=== PATIENT | male | born 1945 | race Caucasian/White ===

== ENCOUNTER 2020-02-01 21:13 | Emergency (ER) | payer MEDICARE, SELFPAY ==
[2020-02-01 21:24] VITALS: BP 151/103; PULSE 123; RESP 22; TEMP 36.7; O2SAT 95; BMI 34.1
--- NOTE | 2020-02-01 21:29 | ED.MALEGU ---
HPI - Male Genitourinary General Chief complaint: Urogenital-Male Stated complaint: difficulty urination Time Seen by Provider: 02/01/20 21:24 History of Present Illness HPI Narrative: This is a 74-year-old male with known BPH and acutely developed inability to urinate at approximately 7:00 p.m. this evening and at the time was bladder scanned for a little over 400 cc of urine but continued to have difficulty with passing urine that has not been associated with any fevers, chills, nausea, vomiting, diarrhea, abdominal pain. Related Data Allergies Allergy/AdvReac Type Severity Reaction Status Date / Time amitriptyline [AMITRIPTYLINE] Allergy Unknown UNKNOWN Unverified 01/15/20 16:10 egg [EGGS] Allergy Unknown UNKNOWN Unverified 01/15/20 16:10 influenza virus vaccine, Allergy Unknown UNKNOWN Unverified 01/15/20 16:10 specific [FLU VACCINE] loratadine [From CLARITIN] Allergy Unknown UNKNOWN Unverified 01/15/20 16:10 mometasone furoate Allergy Unknown UNKNOWN Unverified 01/15/20 16:10 [From ASMANEX TWISTHALER] perphenazine [PERPHENAZINE] Allergy Unknown UNKNOWN Unverified 01/15/20 16:10 Influenza Virus Vaccine Live Allergy Unknown Uncoded 05/08/19 00:00 Review of Systems Review of Systems: Pertinent positives and negatives as stated in HPI 10 point review of systems otherwise negative. [facility] Past Medical History Source: nursing notes reviewed Medical History Anemia Anxiety Asthma Bronchitis COPD (chronic obstructive pulmonary disease) Depression GERD (gastroesophageal reflux disease) Hypertension Nutritional deficiency TBI (traumatic brain injury) Tinnitus Vertigo Social History Social History Alcohol intake: never Smoking Status: Never smoker Smoked in Last 30 Days: No Use of substances other than those prescribed or required for medical reasons: No Any prior treatment program specific to substance use: No Advance Directives: No Advance Directives Information Provided: Yes Physical Exam Vital Signs and I&O and Narrative: Vital Signs and I&O: Vital Signs Temp 98.1 F 02/01/20 21:24 Pulse 123 H 02/01/20 21:24 Resp 22 H 02/01/20 21:24 BP 151/103 H 02/01/20 21:24 Pulse Ox 95 02/01/20 21:24 Intake & Output 02/01/20 02/01/20 02/02/20 06:59 18:59 06:59 Weight 96 kg Body Mass Index 34.1 VITAL SIGNS: Reviewed. GENERAL: Well developed, well nourished, in no acute distress. HEAD: Normocephalic/atraumatic, EYES: PERRLA, EOMI intact without pain, no nystagmus/pallor/icterus noted EARS: Ext canals without abnormality, TMs non-bulging and non-erythematous NOSE: Nares patent bilateral OROPHARYNX: no oral lesions noted, posterior pharynx clear and non-erythematous without noted tonsillar enlargement/erythema/exudates NECK: Supple, no adenopathy LUNGS: Normal breath sounds. No adventitious sounds or accessory muscle use. SpO2<> CARDIOVASCULAR: Regular rate and rhythm without noted murmurs, no JVD or lower extremity edema. ABDOMEN: Soft, non-tender, non-distended with bowel sounds. No rigidity. No guarding. No palpable masses or hernias noted MUSCULOSKELETAL: No tenderness, deformities, or effusions noted on gross inspection. EXTREMITIES: No cyanosis, clubbing or edema. SKIN: Inspection of the skin reveals no rashes, ulcerations, jaundice, pallor, or petechiae. NEUROLOGIC: Baseline dementia. Strength and sensation to light touch were grossly intact Course Course Hospital Course: This is a 74-year-old male with acute urinary retention with passage of small amounts of gross hematuria. Bladder scan was significant for over 700 cc of urine and nursing staff attempted to pass both a coude catheter which was unsuccessful and then a 3 way catheter for CBI which was also unsuccessful. 2235: Attempted passage of 20Fr Coude catheter without success. 2245: Spoke with Dr Iniguez, Urology, who will come in and place the catheter. 2345: Dr Iniguez present to place catheter. Please see consult note for placement. Dr Iniguez recommends follow up in 1 week. review of all lab work is negative for any acute findings except an elevated BUN which is consistent with current urinary retention. MDM - Male Genitourinary Lab Data Result diagrams: 02/01/20 21:37 02/01/20 21:38 Labs: Lab Results 02/01/20 02/01/20 02/01/20 Range/Units 21:37 21:37 21:38 WBC 9.7 (4.8-10.8) X10*3/uL RBC 5.02 (4.60-5.80) X10*6/uL Hgb 15.3 (14.0-18.0) g/dl Hct 45.1 (42-52) % MCV 89.8 (80-98) fL MCH 30.5 (27.0-33.0) pg MCHC 33.9 (31.0-36.0) g/dl RDW 12.6 (11.0-16.0) % Plt Count 377 (160-400) X10*3/uL MPV 10.4 (9.4-12.4) fL Immature Gran % (Auto) 0.3 (0.0-0.4) % Neut % (Auto) 69.5 (45-73) % Lymph % (Auto) 18.2 L (20-40) % [place] % (Auto) 8.1 (2-11) % Eos % (Auto) 3.6 (0-4) % Baso % (Auto) 0.3 (0-2) % Neut # (Auto) 6.7 (2.0-8.3) X10*3/uL Lymph # (Auto) 1.8 (1.2-4.9) X10*3/uL [place] # (Auto) 0.8 (0.1-1.2) X10*3/uL Eos # (Auto) 0.4 (0.0-0.4) X10*3/uL Baso # (Auto) 0.0 (0.0-0.2) X10*3/uL Abs Immat Gran (auto) 0.03 (0.00-0.03) X10*3/uL Absolute Nucleated RBC 0.000 (0.0-0.012) X10*3/uL Nucleated RBC % (auto) 0.0 (0.0-0.2) /100WBC PT 11.9 (10.8-13.0) SEC INR 1.0 (0.9-1.1) Sodium 138 (135-145) mmol/L Potassium 3.5 (3.3-5.1) mmol/l Chloride 101 (96-108) mmol/L Carbon Dioxide 26 (22-29) mmol/L Anion Gap 15 (12-20) BUN 20 H (9-16) mg/dL Creatinine 1.02 (0.5-1.4) mg/dL Estim Creat Clear Calc 71.0 Estimated GFR > 60 Random Glucose 132 H (60-115) mg/dL Calcium 9.3 (8.4-10.2) mg/dL Total Bilirubin 0.5 (0.0-1.0) mg/dL AST 18 (5-37) U/L ALT 30 (0-40) U/L Alkaline Phosphatase 86 (39-117) U/L Total Protein 7.3 (6.5-8.0) g/dL Albumin 4.2 (3.5-5.0) g/dL Discharge Plan Discharge Clinical Impression: Urinary retention with incomplete bladder emptying Patient Disposition: [facility] ([place] Instructions: Espinoza Catheter Placement and Care (ED) Additional Instructions: 1. Resume all home medications as prescribed. 2. Increase hydration, especially water 3. Espinoza catheter should be left in place until evaluated by Urology. The patient and/or family acknowledge understanding of results (as applicable), diagnosis, treatment plan, need for follow up, and symptoms that should prompt a return to the emergency room. Referrals: Sai Iniguez MD [Physician] - 1 week ( for follow-up evaluation of urinary retention.)
[2020-02-01 21:49] LABS: MANUAL DIFF FLAG NO
[2020-02-01 21:52] LABS: Basophils Percent Auto 0.3 % (0-2); Eosinophils Absolute Auto 0.4 X10*3/uL (0.0-0.4); Eosinophils Percent Auto 3.6 % (0-4); Hematocrit 45.1 % (42-52); Hemoglobin 15.3 g/dl (14.0-18.0); Imm Gran Abs Auto 0.03 X10*3/uL (0.00-0.03); Imm Gran Pct Auto 0.3 % (0.0-0.4); Lymphocytes Absolute Auto 1.8 X10*3/uL (1.2-4.9); Lymphocytes Percent Auto 18.2 % (20-40); Mean Corpuscular HGB Conc 33.9 g/dl (31.0-36.0); Mean Corpuscular Hemoglobin 30.5 pg (27.0-33.0); Mean Corpuscular Volume 89.8 fL (80-98); Mean Platelet Volume 10.4 fL (9.4-12.4); Monocytes Absolute Auto 0.8 X10*3/uL (0.1-1.2); Monocytes Percent Auto 8.1 % (2-11); Neutrophils Absolute Auto 6.7 X10*3/uL (2.0-8.3); Neutrophils Percent Auto 69.5 % (45-73); Platelet Count 377 X10*3/uL (160-400); Red Blood Count 5.02 X10*6/uL (4.60-5.80); Red Cell Distribution Width 12.6 % (11.0-16.0); White Blood Count 9.7 X10*3/uL (4.8-10.8)
[2020-02-01 21:57] LABS: Prothrombin Time 11.9 SEC (10.8-13.0)
[2020-02-01 22:26] LABS: Alanine Aminotransferase 30 U/L (0-40); Albumin Level 4.2 g/dL (3.5-5.0); Alkaline Phosphatase 86 U/L (39-117); Anion Gap 15 (12-20); Aspartate Amino Transferase 18 U/L (5-37); Bilirubin Total 0.5 mg/dL (0.0-1.0); Blood Urea Nitrogen 20 mg/dL (9-16); Calcium 9.3 mg/dL (8.4-10.2); Carbon Dioxide 26 mmol/L (22-29); Chloride 101 mmol/L (96-108); Estimated Glomerular Filt Rate > 60; Glucose Random 132 mg/dL (60-115); Potassium 3.5 mmol/l (3.3-5.1); Sodium 138 mmol/L (135-145); Total Protein 7.3 g/dL (6.5-8.0)
--- NOTE | 2020-02-01 22:43 | PC.NURSE ---
Multiple cath attempts made by RN and provider with both 3 way catheter and coude. Unsucessful. Plan to contact urology. Patient remains in discomfort from pressure in bladder.
[2020-02-02] VITALS: BP 108/76; PULSE 114; RESP 20; TEMP 36.8; O2SAT 92
--- NOTE | 2020-02-02 00:14 | PM.UROPN ---
Subjective Subjective Patient reports: pain is less Interval history: Seen in ER Retention 800cc by scan difficult murguia placement in ER - had bladder neck false passage and trilobar crowding Physical Exam Vital Signs and I&O and Narrative: Vital Signs and I&O: Vital Signs Temp 98.1 F 02/01/20 21:24 Pulse 123 H 02/01/20 21:24 Resp 22 H 02/01/20 21:24 BP 151/103 H 02/01/20 21:24 Pulse Ox 95 02/01/20 21:24 Intake & Output 02/01/20 02/01/20 02/02/20 06:59 18:59 06:59 Weight 211 lb 10.3 oz Body Mass Index 34.1 Const: General: cooperative, healthy appearing, comfortable and no acute distress Nutritional Appearance: average body habitus Orientation/consciousness: oriented to person, oriented to place and oriented to time Eyes: General: appearance normal, both eyes and all related structures Chest: Chest palpation & inspection: normal inspection of the chest Resp: Effort & Inspection: normal respiratory effort Cardio: Rate: regular rate GI: Inspection: Yes normal to inspection Skin: Hair: normal Neuro: General: oriented to person, oriented to place and oriented to time Extrem: General: Yes normal to inspection Progress Note: A&P Assessment and plan (1) Urinary retention with incomplete bladder emptying: Status: Acute Assessment and Plan: flomax/finasteride f/u in 1 week in office Time Spent With Patient Time: Total time spent is greater than 50% in coordination of care (as documented) at patient's floor/unit and/or counseling patient: Time with patient: 25 - 35 minutes
[2020-02-02] MEDS: Lidocaine HCl 2 % Urojet 10 ML JEL.PF.APP TOPICAL ×2 (00:26→00:27)
[2020-02-02 02:04] LABS: Appearance Urine CLOUDY; Color Urine BROWN; Glucose Urine UA NEG (NEG); Leukocyte Esterase Urine NEG (NEG); Nitrite Urine POS (NEG); Specific Gravity - Urine >= 1.030 (1.005-1.025); Urine Blood 3+ (NEG); Urine Ketones 5 MG/DL (NEG); Urine Protein 2+ MG/DL (NEG-TRACE)
[2020-02-02 02:11] LABS: RBC Urine TNTC /HPF (0); Squamous Epithelial Cell Urine 2+ /LPF
[2020-02-02 02:12] LABS: Mucus Urine 2+ /LPF
== END 2020-02-02 01:30 | disposition skilled nursing facility (03) ==
PROVIDERS: Emergency Provider Student in an Organized Health Care Education/Training Program
DX: R33.9 Retention of urine, unspecified (principal); I10 Essential (primary) hypertension
CPT/HCPCS: 51702; 36415; 51798; 80053; 81001; 81003; 85025; 85610; 87086; 99284; 99285

== ENCOUNTER → 2020-02-10 08:26 | Outpatient (BNVA) | payer MEDICARE, SELFPAY | PROVIDERS: Visit Provider Urology | DX: N40.1 Benign prostatic hyperplasia with lower urinary tract symptoms (principal); N13.8 Other obstructive and reflux uropathy; R33.8 Other retention of urine | CPT/HCPCS: 99214 ==

== ENCOUNTER 2020-02-12 | Outpatient (REF) | payer MEDICARE, SELFPAY | END 2020-02-12 00:01 | disposition home or self-care (01) | LOC: HO.HSH1N | PROVIDERS: Visit Provider Internal Medicine Interventional Cardiology | DX: E55.9 Vitamin D deficiency, unspecified (principal) | CPT/HCPCS: 82306 ==

== ENCOUNTER → 2020-03-02 12:45 | Outpatient (BNVA) | payer MEDICARE, SELFPAY | PROVIDERS: Visit Provider Urology | DX: N40.1 Benign prostatic hyperplasia with lower urinary tract symptoms (principal); N13.8 Other obstructive and reflux uropathy; R33.8 Other retention of urine | CPT/HCPCS: 51798; 81002; 99212 ==

== ENCOUNTER 2020-07-29 07:41 | Outpatient (REF) | payer MEDICARE, SELFPAY ==
[2020-07-29 08:17] LABS: MANUAL DIFF FLAG NO
[2020-07-29 08:40] LABS: Basophils Percent Auto 0.3 % (0-2); Eosinophils Absolute Auto 0.4 X10*3/uL (0.0-0.4); Eosinophils Percent Auto 6.6 % (0-4); Hematocrit 42.2 % (42-52); Imm Gran Abs Auto 0.01 X10*3/uL (0.00-0.03); Imm Gran Pct Auto 0.2 % (0.0-0.4); Lymphocytes Absolute Auto 1.6 X10*3/uL (1.2-4.9); Lymphocytes Percent Auto 26.7 % (20-40); Mean Corpuscular HGB Conc 33.2 g/dl (31.0-36.0); Mean Corpuscular Hemoglobin 29.9 pg (27.0-33.0); Mean Corpuscular Volume 90.2 fL (80-98); Mean Platelet Volume 10.9 fL (9.4-12.4); Monocytes Absolute Auto 0.5 X10*3/uL (0.1-1.2); Monocytes Percent Auto 8.9 % (2-11); Neutrophils Absolute Auto 3.5 X10*3/uL (2.0-8.3); Neutrophils Percent Auto 57.3 % (45-73); Platelet Count 310 X10*3/uL (160-400); Red Blood Count 4.68 X10*6/uL (4.60-5.80); Red Cell Distribution Width 13.4 % (11.0-16.0)
[2020-07-29 08:52] LABS: Alanine Aminotransferase 23 U/L (0-40); Albumin Level 3.7 g/dL (3.5-5.0); Alkaline Phosphatase 74 U/L (39-117); Anion Gap 12 (12-20); Aspartate Amino Transferase 15 U/L (5-37); Bilirubin Total 0.6 mg/dL (0.0-1.0); Blood Urea Nitrogen 17 mg/dL (9-16); Calcium 8.7 mg/dL (8.4-10.2); Carbon Dioxide 33 mmol/L (22-29); Chloride 100 mmol/L (96-108); Estimated Glomerular Filt Rate > 60; Glucose Fasting 99 mg/dL (60-99); Potassium 3.4 mmol/L (3.3-5.1); Sodium 142 mmol/L (135-145); Total Protein 6.6 g/dL (6.5-8.0)
[2020-07-29 10:01] LABS: Thyroid Stimulating Hormone 1.05 uIU/mL (0.32-4.0); Vitamin D 25-OH Total 50.8 ng/mL (>30)
== END 2020-07-29 07:42 | disposition home or self-care (01) ==
LOC: HO.HSH1N 07:41
PROVIDERS: Visit Provider Internal Medicine Interventional Cardiology
DX: I10 Essential (primary) hypertension (principal); E55.9 Vitamin D deficiency, unspecified; J44.9 Chronic obstructive pulmonary disease, unspecified; R00.0 Tachycardia, unspecified
CPT/HCPCS: 36415; 80053; 82306; 84443; 85025

== ENCOUNTER → 2020-09-01 13:55 | Outpatient (BNVA) | payer MEDICARE, SELFPAY | PROVIDERS: Visit Provider Urology | DX: N40.1 Benign prostatic hyperplasia with lower urinary tract symptoms (principal); N13.8 Other obstructive and reflux uropathy; R33.9 Retention of urine, unspecified | CPT/HCPCS: 51798; 81002; 99212 ==

== ENCOUNTER 2021-08-01 07:04 | Outpatient (REF) | payer MEDICARE, SELFPAY ==
[2021-08-01 07:30] LABS: Appearance Urine CLEAR; Color Urine YELLOW; Glucose Urine UA NEG (NEG); Leukocyte Esterase Urine NEG (NEG); Nitrite Urine NEG (NEG); Specific Gravity - Urine 1.015 (1.005-1.025); Urine Blood NEG (NEG); Urine Ketones NEG (NEG); Urine Protein NEG (NEG-TRACE)
== END 2021-08-01 07:05 | disposition home or self-care (01) ==
LOC: HO.HSH2N 07:04
PROVIDERS: Visit Provider Internal Medicine Interventional Cardiology
DX: R35.0 Frequency of micturition (principal)
CPT/HCPCS: 81003; 87086

== ENCOUNTER 2021-10-17 06:26 | Outpatient (REF) | payer MEDICARE, SELFPAY ==
[2021-10-17 07:40] LABS: MANUAL DIFF FLAG NO
[2021-10-17 07:46] LABS: Basophils Percent Auto 0.3 % (0-2); Eosinophils Absolute Auto 0.4 X10*3/uL (0.0-0.4); Eosinophils Percent Auto 6.3 % (0-4); Hematocrit 42.3 % (42.0-52.0); Hemoglobin 13.9 g/dl (14.0-18.0); Imm Gran Abs Auto 0.02 X10*3/uL (0.00-0.03); Imm Gran Pct Auto 0.3 % (0.0-0.4); Lymphocytes Absolute Auto 1.7 X10*3/uL (1.2-4.9); Lymphocytes Percent Auto 24.2 % (20-40); Mean Corpuscular HGB Conc 32.9 g/dl (31.0-36.0); Mean Corpuscular Hemoglobin 29.4 pg (27.0-33.0); Mean Corpuscular Volume 89.6 fL (80.0-98.0); Mean Platelet Volume 10.6 fL (9.4-12.4); Monocytes Absolute Auto 0.6 X10*3/uL (0.1-1.2); Neutrophils Absolute Auto 4.2 x10*3/uL (2.0-8.3); Neutrophils Percent Auto 60.9 % (45-73); Platelet Count 353 X10*3/uL (160-400); Red Blood Count 4.72 X10*6/uL (4.60-5.80); Red Cell Distribution Width 13.2 % (11.0-16.0); White Blood Count 6.9 X10*3/uL (4.8-10.8)
[2021-10-17 08:18] LABS: Alanine Aminotransferase 22 U/L (0-40); Albumin Level 3.6 g/dL (3.5-5.0); Alkaline Phosphatase 83 U/L (39-117); Anion Gap 11 (12-20); Aspartate Amino Transferase 14 U/L (5-37); Bilirubin Total 0.6 mg/dL (0.0-1.0); Blood Urea Nitrogen 17 mg/dL (9-16); Calcium 9.1 mg/dL (8.4-10.2); Carbon Dioxide 33 mmol/L (22-29); Chloride 100 mmol/L (96-108); Estimated Glomerular Filt Rate > 60; Glucose Fasting 104 mg/dL (60-99); Potassium 3.5 mmol/L (3.3-5.1); Sodium 140 mmol/L (135-145); Total Protein 6.8 g/dL (6.5-8.0)
[2021-10-17 08:41] LABS: Vitamin D 25-OH Total 70.9 ng/mL (>30)
== END 2021-10-17 06:27 | disposition home or self-care (01) ==
LOC: HO.HSH2N 06:26
PROVIDERS: Visit Provider Internal Medicine Interventional Cardiology
DX: I10 Essential (primary) hypertension (principal); E55.9 Vitamin D deficiency, unspecified; F03.90 Unspecified dementia, unspecified severity, without behavioral disturbance, psychotic disturbance, mood disturbance, and anxiety
CPT/HCPCS: 36415; 80053; 82306; 85025

== ENCOUNTER 2022-01-13 14:09 | Outpatient (REF) | payer MEDICARE, SELFPAY ==
[2022-01-13 14:25] LABS: Appearance Urine Turbid; Color Urine Yellow; Glucose Urine UA Negative (Negative); Leukocyte Esterase Urine Trace (Negative); Nitrite Urine Negative (Negative); PH >= 9.0 (5.0-9.0); UMIC TRIGGER UACC YES; Urine Blood Negative (Negative); Urine Ketones Negative (Negative); Urine Protein 30 (1+) mg/dL (Neg-Trace)
[2022-01-13 14:27] LABS: Bacteria Urine None Seen (None Seen); Hyaline Casts Urine 0-2 /LPF (0-2); Squamous Epithelial Cell Urine 0-2 /HPF (0-2); WBC Urine 0-5 /HPF (0-5)
== END 2022-01-13 14:10 | disposition home or self-care (01) ==
LOC: HO.LNP 14:09
PROVIDERS: Visit Provider Internal Medicine Interventional Cardiology
DX: R41.82 Altered mental status, unspecified (principal); R35.0 Frequency of micturition; R39.15 Urgency of urination
CPT/HCPCS: 81001

== ENCOUNTER 2022-01-31 05:59 | Outpatient (REF) | payer MEDICARE, SELFPAY ==
[2022-01-31 08:42] LABS: Anion Gap 16 (12-20); Blood Urea Nitrogen 14 mg/dL (9-16); Carbon Dioxide 31 mmol/L (22-29); Chloride 95 mmol/L (96-108); Estimated Glomerular Filt Rate > 60; Glucose Random 92 mg/dL (60-115); Potassium 3.4 mmol/L (3.3-5.1); Sodium 139 mmol/L (135-145)
== END 2022-01-31 06:00 | disposition home or self-care (01) ==
LOC: HO.HSH2N 05:59
PROVIDERS: Visit Provider Internal Medicine Interventional Cardiology
DX: I10 Essential (primary) hypertension (principal)
CPT/HCPCS: 36415; 80048

== ENCOUNTER 2022-02-15 06:57 | Outpatient (REF) | payer MEDICARE, SELFPAY ==
[2022-02-15 07:42] LABS: Anion Gap 13 (12-20); Blood Urea Nitrogen 17 mg/dL (9-16); Calcium 8.9 mg/dL (8.4-10.2); Carbon Dioxide 32 mmol/L (22-29); Chloride 98 mmol/L (96-108); Estimated Glomerular Filt Rate > 60; Glucose Random 95 mg/dL (60-115); Potassium 3.4 mmol/L (3.3-5.1); Sodium 140 mmol/L (135-145)
== END 2022-02-15 06:58 | disposition home or self-care (01) ==
LOC: HO.HSH2N 06:57
PROVIDERS: Visit Provider Internal Medicine
DX: I10 Essential (primary) hypertension (principal)
CPT/HCPCS: 36415; 80048

== ENCOUNTER 2022-03-27 05:58 | Outpatient (REF) | payer MEDICARE, SELFPAY ==
[2022-03-27 07:36] LABS: MANUAL DIFF FLAG NO
[2022-03-27 07:41] LABS: Basophils Percent Auto 0.4 % (0-2); Eosinophils Absolute Auto 0.7 X10*3/uL (0.0-0.4); Eosinophils Percent Auto 8.8 % (0-4); Hematocrit 41.8 % (42.0-52.0); Hemoglobin 13.9 g/dl (14.0-18.0); Imm Gran Abs Auto 0.02 X10*3/uL (0.00-0.03); Imm Gran Pct Auto 0.3 % (0.0-0.4); Lymphocytes Absolute Auto 1.4 X10*3/uL (1.2-4.9); Lymphocytes Percent Auto 18.3 % (20-40); Mean Corpuscular HGB Conc 33.3 g/dl (31.0-36.0); Mean Corpuscular Hemoglobin 29.7 pg (27.0-33.0); Mean Corpuscular Volume 89.3 fL (80.0-98.0); Mean Platelet Volume 10.6 fL (9.4-12.4); Monocytes Absolute Auto 0.7 X10*3/uL (0.1-1.2); Monocytes Percent Auto 9.3 % (2-11); Neutrophils Absolute Auto 4.7 x10*3/uL (2.0-8.3); Neutrophils Percent Auto 62.9 % (45-73); Platelet Count 325 X10*3/uL (160-400); Red Blood Count 4.68 X10*6/uL (4.60-5.80); Red Cell Distribution Width 13.1 % (11.0-16.0); White Blood Count 7.4 X10*3/uL (4.8-10.8)
== END 2022-03-27 05:59 | disposition home or self-care (01) ==
LOC: HO.HSH2N 05:58
PROVIDERS: Visit Provider Internal Medicine
DX: N39.0 Urinary tract infection, site not specified (principal)
CPT/HCPCS: 36415; 85025

== ENCOUNTER 2022-05-25 05:39 | Outpatient (REF) | payer MEDICARE, SELFPAY ==
[2022-05-25 07:45] LABS: MANUAL DIFF FLAG NO
[2022-05-25 08:10] LABS: Basophils Percent Auto 0.3 % (0-2); Eosinophils Absolute Auto 0.5 X10*3/uL (0.0-0.4); Eosinophils Percent Auto 6.9 % (0-4); Hematocrit 42.4 % (42.0-52.0); Imm Gran Abs Auto 0.03 X10*3/uL (0.00-0.03); Imm Gran Pct Auto 0.5 % (0.0-0.4); Lymphocytes Absolute Auto 1.4 X10*3/uL (1.2-4.9); Lymphocytes Percent Auto 22.2 % (20-40); Mean Corpuscular Hemoglobin 29.7 pg (27.0-33.0); Mean Corpuscular Volume 89.8 fL (80.0-98.0); Mean Platelet Volume 10.7 fL (9.4-12.4); Monocytes Absolute Auto 0.5 X10*3/uL (0.1-1.2); Monocytes Percent Auto 7.2 % (2-11); Neutrophils Absolute Auto 4.1 x10*3/uL (2.0-8.3); Neutrophils Percent Auto 62.9 % (45-73); Platelet Count 350 X10*3/uL (160-400); Red Blood Count 4.72 X10*6/uL (4.60-5.80); Red Cell Distribution Width 13.1 % (11.0-16.0); White Blood Count 6.5 X10*3/uL (4.8-10.8)
[2022-05-25 08:44] LABS: Alanine Aminotransferase 17 U/L (0-40); Albumin Level 3.5 g/dL (3.5-5.0); Alkaline Phosphatase 94 U/L (39-117); Anion Gap 12 (12-20); Aspartate Amino Transferase 12 U/L (5-37); Bilirubin Total 0.6 mg/dL (0.0-1.0); Blood Urea Nitrogen 16 mg/dL (9-16); Calcium 9.1 mg/dL (8.4-10.2); Carbon Dioxide 32 mmol/L (22-29); Chloride 100 mmol/L (96-108); Estimated Glomerular Filt Rate > 60; Glucose Fasting 84 mg/dL (60-99); Magnesium 1.9 mg/dL (1.6-2.6); Potassium 3.7 mmol/L (3.3-5.1); Sodium 140 mmol/L (135-145); Total Protein 6.8 g/dL (6.5-8.0)
[2022-05-25 09:00] LABS: Prostate Specific Antigen Scr 7.48 ng/mL (<0.05-4.0); Thyroid Stimulating Hormone 0.79 uIU/mL (0.32-4.0)
[2022-06-01 02:04] LABS: Testosterone, Total 358 ng/dL (250-1100)
== END 2022-05-25 05:40 | disposition home or self-care (01) ==
LOC: HO.HSH2N 05:39
PROVIDERS: Visit Provider Internal Medicine Interventional Cardiology
DX: Z12.5 Encounter for screening for malignant neoplasm of prostate (principal); I10 Essential (primary) hypertension; F03.90 Unspecified dementia, unspecified severity, without behavioral disturbance, psychotic disturbance, mood disturbance, and anxiety
CPT/HCPCS: 36415; 80053; 81001; 83735; 84153; 84403; 84443; 85025

== ENCOUNTER 2022-05-25 06:13 | Outpatient (REF) | payer MEDICARE, SELFPAY ==
[2022-05-25 07:55] LABS: Appearance Urine Turbid; Color Urine Yellow; Glucose Urine UA Negative (Negative); Leukocyte Esterase Urine Trace (Negative); Nitrite Urine Negative (Negative); Specific Gravity - Urine 1.025 (1.005-1.025); UMIC TRIGGER UACC YES; Urine Blood Negative (Negative); Urine Ketones Trace mg/dL (Negative); Urine Protein Trace mg/dL (Neg-Trace)
[2022-05-25 08:03] LABS: Bacteria Urine None Seen (None Seen); Calcium Oxalate Crystals Urine Present; RBC Urine 0-2 /HPF (0-2); Squamous Epithelial Cell Urine 0-2 /HPF (0-2); WBC Urine 0-5 /HPF (0-5)
== END 2022-05-25 06:14 | disposition home or self-care (01) ==
LOC: HO.HSH2N 06:13
PROVIDERS: Visit Provider Internal Medicine Interventional Cardiology
DX: Z13.89 Encounter for screening for other disorder (principal)
CPT/HCPCS: 81001

== ENCOUNTER 2022-11-15 05:36 | Outpatient (REF) | payer MEDICARE, SELFPAY ==
[2022-11-15 06:17] LABS: MANUAL DIFF FLAG NO
[2022-11-15 06:22] LABS: Basophils Percent Auto 0.5 % (0-2); Eosinophils Absolute Auto 0.7 X10*3/uL (0.0-0.4); Eosinophils Percent Auto 13.3 % (0-4); Hematocrit 41.7 % (42.0-52.0); Hemoglobin 13.7 g/dl (14.0-18.0); Imm Gran Abs Auto 0.02 X10*3/uL (0.00-0.03); Imm Gran Pct Auto 0.4 % (0.0-0.4); Lymphocytes Absolute Auto 1.3 X10*3/uL (1.2-4.9); Lymphocytes Percent Auto 24.1 % (20-40); Mean Corpuscular HGB Conc 32.9 g/dl (31.0-36.0); Mean Corpuscular Volume 91.2 fL (80.0-98.0); Mean Platelet Volume 9.9 fL (9.4-12.4); Monocytes Absolute Auto 0.5 X10*3/uL (0.1-1.2); Neutrophils Absolute Auto 2.9 x10*3/uL (2.0-8.3); Neutrophils Percent Auto 52.7 % (45-73); Platelet Count 340 X10*3/uL (160-400); Red Blood Count 4.57 X10*6/uL (4.60-5.80); Red Cell Distribution Width 13.1 % (11.0-16.0); White Blood Count 5.6 X10*3/uL (4.8-10.8)
[2022-11-17 20:29] LABS: Immunoglobulin E 595 kU/L (<OR=114)
== END 2022-11-15 05:37 | disposition home or self-care (01) ==
LOC: HO.HSH2N 05:36
PROVIDERS: Visit Provider Internal Medicine Interventional Cardiology
DX: J33.9 Nasal polyp, unspecified (principal); Z20.2 Contact with and (suspected) exposure to infections with a predominantly sexual mode of transmission
CPT/HCPCS: 36415; 82785; 85025

== ENCOUNTER 2023-01-16 11:17 | Outpatient (REF) | payer MEDICARE, SELFPAY ==
[2023-01-16 12:07] LABS: Influenza A PCR NEGATIVE (Negative); Influenza B PCR NEGATIVE (Negative); Resp Syncy Virus RNA Qual PCR NEGATIVE (Negative); SARS COV2 PCR INHOUSE POSITIVE (Negative)
== END 2023-01-16 11:18 | disposition home or self-care (01) ==
LOC: HO.HSH2N 11:17
PROVIDERS: Visit Provider Internal Medicine Interventional Cardiology
DX: R05.9 Cough, unspecified (principal); Z20.822 Contact with and (suspected) exposure to COVID-19
CPT/HCPCS: 0241U; 36415; 80048

== ENCOUNTER 2023-01-16 13:48 | Outpatient (REF) | payer MEDICARE, SELFPAY ==
[2023-01-16 14:58] LABS: Anion Gap 10 (12-20); Blood Urea Nitrogen 15 mg/dL (9-16); Calcium 9.6 mg/dL (8.4-10.2); Carbon Dioxide 31 mmol/L (22-29); Chloride 100 mmol/L (96-108); Estimated Glomerular Filt Rate 58; Glucose Random 105 mg/dL (60-115); Sodium 137 mmol/L (135-145)
== END 2023-01-16 13:49 | disposition home or self-care (01) ==
LOC: HO.HSH1N 13:48
PROVIDERS: Visit Provider Internal Medicine Interventional Cardiology
DX: Z13.89 Encounter for screening for other disorder (principal)
CPT/HCPCS: 36415; 80048

== ENCOUNTER 2023-10-16 13:57 | Outpatient (REF) | payer MEDICARE, SELFPAY ==
[2023-10-04 07:41] LABS: MANUAL DIFF FLAG NO
[2023-10-04 07:48] LABS: Basophils Percent Auto 0.6 % (0-2); Eosinophils Absolute Auto 0.6 X10*3/uL (0.0-0.4); Eosinophils Percent Auto 11.8 % (0-4); Hematocrit 40.2 % (42.0-52.0); Hemoglobin 13.5 g/dl (14.0-18.0); Imm Gran Abs Auto 0.01 X10*3/uL (0.00-0.03); Imm Gran Pct Auto 0.2 % (0.0-0.4); Lymphocytes Absolute Auto 1.3 X10*3/uL (1.2-4.9); Lymphocytes Percent Auto 23.8 % (20-40); Mean Corpuscular HGB Conc 33.6 g/dl (31.0-36.0); Mean Corpuscular Hemoglobin 30.5 pg (27.0-33.0); Mean Platelet Volume 10.4 fL (9.4-12.4); Monocytes Absolute Auto 0.6 X10*3/uL (0.1-1.2); Monocytes Percent Auto 11.4 % (2-11); Neutrophils Absolute Auto 2.7 x10*3/uL (2.0-8.3); Neutrophils Percent Auto 52.2 % (45-73); Platelet Count 293 X10*3/uL (160-400); Red Blood Count 4.42 X10*6/uL (4.60-5.80); Red Cell Distribution Width 13.2 % (11.0-16.0); White Blood Count 5.3 X10*3/uL (4.8-10.8)
[2023-10-04 08:10] LABS: Alanine Aminotransferase 15 U/L (0-40); Albumin Level 3.4 g/dL (3.5-5.0); Alkaline Phosphatase 86 U/L (39-117); Anion Gap 13 (12-20); Aspartate Amino Transferase 14 U/L (5-37); Bilirubin Total 0.4 mg/dL (0.0-1.0); Blood Urea Nitrogen 13 mg/dL (9-16); Calcium 9.3 mg/dL (8.4-10.2); Carbon Dioxide 26 mmol/L (22-29); Chloride 105 mmol/L (96-108); Estimated Glomerular Filt Rate > 60; Glucose Random 89 mg/dL (60-115); Potassium 3.6 mmol/L (3.3-5.1); Sodium 140 mmol/L (135-145); Total Protein 7.1 g/dL (6.5-8.0)
[2023-10-04 08:24] LABS: Prostate Specific Antigen 9.78 ng/mL (<0.05-4.0)
[2023-10-04 08:25] LABS: Thyroid Stimulating Hormone 0.76 uIU/mL (0.32-4.0)
[2023-10-08 23:43] LABS: Immunoglobulin E 332 kU/L (<OR=114)
== END 2023-10-16 13:58 | disposition home or self-care (01) ==
LOC: HO.HSH2N 13:57
PROVIDERS: Visit Provider Internal Medicine Medical Oncology
DX: Z13.89 Encounter for screening for other disorder (principal)
CPT/HCPCS: 36415; 80053; 82785; 84153; 84443; 85025

== ENCOUNTER 2024-01-15 06:04 | Outpatient (REF) | payer MEDICARE, SELFPAY ==
[2024-01-15 06:08] LABS: MANUAL DIFF FLAG NO
[2024-01-15 06:26] LABS: Basophils Percent Auto 0.4 % (0-2); Eosinophils Absolute Auto 0.4 X10*3/uL (0.0-0.4); Eosinophils Percent Auto 6.4 % (0-4); Hematocrit 41.1 % (42.0-52.0); Hemoglobin 13.7 g/dl (14.0-18.0); Imm Gran Abs Auto 0.02 X10*3/uL (0.00-0.03); Imm Gran Pct Auto 0.4 % (0.0-0.4); Lymphocytes Absolute Auto 1.3 X10*3/uL (1.2-4.9); Lymphocytes Percent Auto 23.5 % (20-40); Mean Corpuscular HGB Conc 33.3 g/dl (31.0-36.0); Mean Corpuscular Hemoglobin 30.4 pg (27.0-33.0); Mean Corpuscular Volume 91.1 fL (80.0-98.0); Mean Platelet Volume 10.1 fL (9.4-12.4); Monocytes Absolute Auto 0.4 X10*3/uL (0.1-1.2); Monocytes Percent Auto 6.9 % (2-11); Neutrophils Absolute Auto 3.4 x10*3/uL (2.0-8.3); Neutrophils Percent Auto 62.4 % (45-73); Platelet Count 355 X10*3/uL (160-400); Red Blood Count 4.51 X10*6/uL (4.60-5.80); Red Cell Distribution Width 13.1 % (11.0-16.0); White Blood Count 5.5 X10*3/uL (4.8-10.8)
[2024-01-15 06:40] LABS: Alanine Aminotransferase 18 U/L (0-40); Albumin Level 3.5 g/dL (3.5-5.0); Alkaline Phosphatase 84 U/L (39-117); Anion Gap 12 (12-20); Aspartate Amino Transferase 13 U/L (5-37); Bilirubin Total 0.6 mg/dL (0.0-1.0); Blood Urea Nitrogen 18 mg/dL (9-16); Calcium 9.4 mg/dL (8.4-10.2); Carbon Dioxide 28 mmol/L (22-29); Chloride 103 mmol/L (96-108); Estimated Glomerular Filt Rate > 60; Glucose Fasting 91 mg/dL (60-99); Potassium 3.2 mmol/L (3.3-5.1); Sodium 140 mmol/L (135-145); Total Protein 7.1 g/dL (6.5-8.0)
== END 2024-01-15 06:05 | disposition home or self-care (01) ==
LOC: HO.HSH2N 06:04
PROVIDERS: Visit Provider Internal Medicine Interventional Cardiology
DX: Z00.00 Encounter for general adult medical examination without abnormal findings (principal)
CPT/HCPCS: 36415; 80053; 85025

== ENCOUNTER 2024-01-21 06:09 | Emergency (ER) | payer MEDICARE, SELFPAY ==
[2024-01-21 06:07] VITALS: BP 146/88; PULSE 125; O2SAT 94
[2024-01-21 06:21] VITALS: BP 131/97; PULSE 123; TEMP 37.1; O2SAT 93; BMI 73.3
--- NOTE | 2024-01-21 06:56 | ED_ITS ---
HPI - Male Genitourinary General Chief complaint: Urogenital-Male Stated complaint: BLADDER SCAN SHOWED 500CC, BLADDER OVERFLOWING Time Seen by Provider: 01/21/24 06:55 Source: patient Mode of arrival: EMS Limitations: no limitations History of Present Illness ED Provider: Dr. Lex Flores HPI Narrative: 78-year-old male with a history of traumatic brain injury, GERD, depression, anemia, anxiety, hypertension, COPD, bronchitis, asthma who is a resident of the [facility] who presents emergency department for evaluation of urinary retention. Patient states he has not been able to urinate since this morning. Notes sent in with the patient states he has been having difficulty urinating for several hours. There were 3 attempts to straight cath him in his facility which were unsuccessful. Patient was currently complaining of lower abdominal pain and the need to urinate. He has no other complaints. Related Data Home Medications ?Medication ?Instructions ?Recorded ?Confirmed bisacodyl 5 mg tablet,delayed 5 mg PO DAILY PRN Constipation 02/10/20 01/21/24 release docusate sodium 100 mg capsule 100 mg PO BID 02/10/20 01/21/24 tiotropium bromide 18 mcg capsule 1 cap inhalation DAILY 02/10/20 01/21/24 with inhalation device acetaminophen 325 mg tablet 650 mg PO Q6H PRN pain/fever 01/21/24 01/21/24 amlodipine 2.5 mg tablet 7.5 mg PO DAILY 01/21/24 01/21/24 chlorhexidine gluconate 0.12 % 15 ml buccal BID 01/21/24 01/21/24 mouthwash cholecalciferol (vitamin D3) 25 25 mcg PO DAILY 01/21/24 01/21/24 mcg (1,000 unit) tablet (Vitamin D3) dupilumab 300 mg/2 mL subcutaneous 300 mg subcut Q28D 01/21/24 01/21/24 syringe (Dupixent) finasteride 5 mg tablet 5 mg PO BEDTIME 01/21/24 01/21/24 fluticasone 250 mcg-salmeterol 50 1 inh inhalation BID 01/21/24 01/21/24 mcg/dose blistr powdr for inhalation fluticasone propionate 50 1 spray intranasal BID 01/21/24 01/21/24 mcg/actuation nasal spray,suspension hydrochlorothiazide 25 mg tablet 25 mg PO DAILY 01/21/24 01/21/24 ketoconazole 2 % shampoo 1 appl topical TU@1800 01/21/24 01/21/24 potassium chloride 20 mEq/15 mL 40 meq PO DAILY 01/21/24 01/21/24 oral liquid sodium chloride 0.65 % nasal spray 1 spray intranasal BID 01/21/24 01/21/24 aerosol (Deep Sea Nasal) triamcinolone acetonide 0.1 % 1 appl topical BID PRN scalp rash 01/21/24 01/21/24 topical cream Previous Rx's ?Medication ?Instructions ?Recorded terazosin 10 mg capsule 10 mg PO BEDTIME 90 days #90 caps 03/02/20 Allergies Allergy/AdvReac Type Severity Reaction Status Date / Time amitriptyline [AMITRIPTYLINE] Allergy Unknown UNKNOWN Verified 01/21/24 06:25 egg [EGGS] Allergy Unknown UNKNOWN Verified 01/21/24 06:25 influenza virus vaccine, Allergy Unknown UNKNOWN Verified 01/21/24 06:25 specific [FLU VACCINE] loratadine [From CLARITIN] Allergy Unknown UNKNOWN Verified 01/21/24 06:25 mometasone furoate Allergy Unknown UNKNOWN Verified 01/21/24 06:25 [From ASMANEX TWISTHALER] perphenazine [PERPHENAZINE] Allergy Unknown UNKNOWN Verified 01/21/24 06:25 Influenza Virus Vaccine Live Allergy Unknown Unknown Uncoded 01/21/24 06:25 Review of Systems 2 Review of Systems: Yes all other systems are reviewed and are negative PMFSH Past Medical History Medical History Anemia Anxiety Asthma Bronchitis COPD (chronic obstructive pulmonary disease) Depression GERD (gastroesophageal reflux disease) Hypertension Nutritional deficiency TBI (traumatic brain injury) Tinnitus Vertigo Social History Social History Alcohol intake: never Smoked in Last 30 Days: No Use of substances other than those prescribed or required for medical reasons: No Advance Directives: Yes Advance Directives on File: Yes Advance Directives Date on File: 02/11/20 Do you have a plan to hurt others: No Plan Physical Exam 2 Vital Signs: Vital Signs: Last Vital Signs Temp 98.7 F 01/21/24 06:21 Pulse 123 H 01/21/24 06:21 BP 131/97 H 01/21/24 06:21 Pulse Ox 93 01/21/24 06:21 O2 Del Method Room Air 01/21/24 06:21 BMI result Body Mass Index 73.3 Vital signs revealed an elevated heart rate of 123 and an elevated blood pressure of 131/97 otherwise unremarkable Exam: General: Awake, alert in no distress Head: Normocephalic, atraumatic EENT: PERRL, Lids normal, sclera normal, conjunctiva normal, nose normal , ears normal, throat without erythema or exudates Neck: Supple, no adenopathy Lung: breath sounds symmetric, no wheezing, rales or rhonchi Chest: symmetric movement, nontender Heart: regular rate and rhythm, normal S1, S2 no murmurs or rubs Abdomen: soft, moderate tenderness with palpation over the patient's suprapubic area with the percussible bladder, normoactive bowel sounds Back: no vertebral tenderness, no CVAT Extremities: no deformities, moves all extremities symmetrically Neuro: Awake, alert, oriented, normal speech, cranial nerves intact, moves all extremities symmetrically Psych: Pleasant, cooperative Medications Administered Discontinued Medications Generic Name Dose Route Start Last Admin Trade Name Freq PRN Reason Stop Dose Admin Lidocaine HCl 10 ml 01/21/24 07:15 01/21/24 07:28 Lidocaine Hcl 2 % Urojet 10 Ml Jel.Pf.Cheri TOPICAL 01/21/24 07:16 10 ml ONCE ONE Administration Medical Decision Making Medical Decision Making [facility] Narrative: 78-year-old male with a history of traumatic brain injury, GERD, depression, anemia, anxiety, hypertension, COPD, bronchitis, asthma who is a resident of the [facility] who presents emergency department for evaluation of urinary retention times several hours prior to coming to the emergency department, bladder scan did reveal distended bladder with 500 cc of fluid in his bladder. Vital signs revealed an elevated blood pressure and elevated heart rate. Physical examination did reveal suprapubic tenderness. Differential diagnosis: ?Includes but is not limited to BPH, prostatitis, urinary tract infection, urethral stricture, urinary retention Following evaluation was ordered: CBC, CMP, urinalysis Patient was initially treated with the followin [place] coude catheter with 30 cc balloon Course: 07:57 Initially the nurse attempted to catheterize the patient with an 18 [place] Espinoza catheter was unsuccessful, I was then able to put an 18 [place] coude catheter with a 30 cc balloon with significant resistance at the level of the prostate. Patient drained approximately 200 cc of clear yellow urine. 09:57 The patient's laboratory evaluation revealed normal kidney function. Urinalysis and microscopic was positive for blood but this is most likely secondary to trauma from the initial unsuccessful insertion of the Espinoza catheter. [facility] Espinoza catheter in place and will need to follow-up with our on-call urologist for re-evaluation in 4-7 days. Admission/Observation Consideration of admission/observation: Escalation of care including admission/observation considered (Yes) Lab Data MDM Lab Attestation statement: I reviewed the patient's lab results. 09:57 My interpretation patient's laboratory evaluation as follows: CBC was normal. CMP was normal with a BUN and creatinine of 12 and 0.94. Urinalysis was positive for blood. Microscopic revealed greater than 20 RBCs, 0-5 WBCs 0 to squamous cells, no bacteria. Blood is most likely secondary to trauma from insertion of the Espinoza catheter. 01/21/24 07:20 01/21/24 07:20 Labs: Lab Results 01/21/24 01/21/24 Range/Units 07:20 08:25 WBC 7.1 (4.8-10.8) X10*3/uL RBC 4.59 L (4.60-5.80) X10*6/uL Hgb 14.1 (14.0-18.0) g/dl Hct 41.2 L (42.0-52.0) % MCV 89.8 (80.0-98.0) fL MCH 30.7 (27.0-33.0) pg MCHC 34.2 (31.0-36.0) g/dl RDW 13.1 (11.0-16.0) % Plt Count 367 (160-400) X10*3/uL MPV 10.0 (9.4-12.4) fL Immature Gran % (Auto) 0.3 (0.0-0.4) % Neut % (Auto) 68.1 (45-73) % Lymph % (Auto) 19.1 L (20-40) % [place] % (Auto) 8.4 (2-11) % Eos % (Auto) 3.8 (0-4) % Baso % (Auto) 0.3 (0-2) % Lymph # (Auto) 1.4 (1.2-4.9) X10*3/uL [place] # (Auto) 0.6 (0.1-1.2) X10*3/uL Eos # (Auto) 0.3 (0.0-0.4) X10*3/uL Baso # (Auto) 0.0 (0.0-0.2) X10*3/uL Abs Immat Gran (auto) 0.02 (0.00-0.03) X10*3/uL Absolute Neuts (auto) 4.9 (2.0-8.3) x10*3/uL Absolute Nucleated RBC 0.000 (0.0-0.012) X10*3/uL Nucleated RBC % (auto) 0.0 (0.0-0.2) /100WBC Sodium 141 (135-145) mmol/L Potassium 3.5 (3.3-5.1) mmol/L Chloride 102 (96-108) mmol/L Carbon Dioxide 29 (22-29) mmol/L Anion Gap 14 (12-20) BUN 12 (9-16) mg/dL Creatinine 0.94 (0.5-1.4) mg/dL Estim Creat Clear Calc 114.1 Estimated GFR > 60 Random Glucose 105 (60-115) mg/dL Calcium 9.4 (8.4-10.2) mg/dL Total Bilirubin 0.6 (0.0-1.0) mg/dL AST 14 (5-37) U/L ALT 21 (0-40) U/L Alkaline Phosphatase 90 (39-117) U/L Total Protein 7.5 (6.5-8.0) g/dL Albumin 3.6 (3.5-5.0) g/dL Urine Color Yellow Urine Appearance Clear Urine pH 8.0 (5.0-9.0) Ur Specific [place] 1.010 (1.005-1.025) Urine Protein Trace (Neg-Trace) mg/dL Urine Glucose (UA) Negative (Negative) mg/dL Urine Ketones Negative (Negative) mg/dL Urine Blood Moderate (2+) H (Negative) Urine Nitrite Negative (Negative) Ur Leukocyte Esterase Negative (Negative) Urine RBC >20 H (0-2) /HPF Urine WBC 0-5 (0-5) /HPF Ur Squamous Epith Cells 0-2 (0-2) /HPF Urine Bacteria None Seen (None Seen) Hyaline Casts 0-2 (0-2) /LPF Chronic Conditions Patient?s care impacted by: Hypertension and Other (COPD, TBI) Procedures Catheter Insertion (Urinary) Date of insertion: 01/21/24 Reason for placing: Yes Reason for placing indwelling catheter: Acute urinary retention Bladder scan/ultrasound used before catheterization: Yes Estimated amount of urine (mLs): 500 Topical anesthesia used: Yes (2% lidocaine-10 mL inserted through urethra) Catheter type/location: Coude Size ([place]): 18 Catheter balloon size (mL): 30 Catheter balloon amount: 30 Results: successfully catheterized-immediate flow Procedure performed: without complications Comment: First attempt was done with an 18 [place] Espinoza catheter unsuccessfu Discharge Plan Discharge Clinical Impression: Acute urinary retention, Status post insertion of Espinoza catheter Patient Disposition: Xfer LT Transfer Details: [place] kept them Instructions: Espinoza Catheter Placement and Care (ED) Additional Instructions: We inserted a 18 [place] coude catheter into your bladder to help drain urine out of your bladder. The catheter has a 30 cc balloon filled with fluid. The catheter will need to stay in place until your re-evaluated by our urologist. Your blood work was normal including normal kidney function. Your urine tests reveal blood in your urine but this was caused by the Espinoza catheter, there is no evidence of an infection. Continue taking your medications as prescribed by your providers. Follow-up with your urologist or our on-call urologist, Dr. Iniguez. Please return to the emergency department if your symptoms get worse or if you develop any symptoms that are concerning to you. Prescriptions: No Action fluticasone propion-salmeterol 250-50 mcg/dose Blister With Device 1 inh INHALATION BID acetaminophen 325 mg Tablet 650 mg PO Q6H PRN (Reason: pain/fever) ketoconazole 2 % Shampoo 1 appl TOPICAL TU@1800 Rx Instructions: apply to scalp amlodipine 2.5 mg Tablet 7.5 mg PO DAILY triamcinolone acetonide 0.1 % Cream 1 appl TOPICAL BID PRN (Reason: scalp rash) Rx Instructions: apply to scalp PRN for rash potassium chloride 20 mEq/15 mL Liquid 40 meq PO DAILY hydrochlorothiazide 25 mg Tablet 25 mg PO DAILY fluticasone propionate 50 mcg/actuation Bantam,Suspension 1 spray INTRANASAL BID Rx Instructions: administer into each nostril Deep Sea Nasal 0.65 % Aerosol,Bantam 1 spray INTRANASAL BID chlorhexidine gluconate 0.12 % Mouthwash 15 ml BUCCAL BID Rx Instructions: swish and spit cholecalciferol (vitamin D3) [Vitamin D3] 25 mcg (1,000 unit) Tablet 25 mcg PO DAILY Dupixent Syringe 300 mg/2 mL Syringe 300 mg SUBCUT Q28D finasteride 5 mg tablet 5 mg PO BEDTIME terazosin 10 mg capsule 10 mg PO BEDTIME 90 Days Qty: 90 1RF tiotropium bromide 18 mcg capsule, w/inhalation device 1 cap inhalation DAILY Rx Instructions: puncture 1 cap using device; one dose = 2 inhalations bisacodyl 5 mg tablet,delayed release (DR/EC) 5 mg PO DAILY PRN (Reason: Constipation) Rx Instructions: for no BM in 3 days or 9 shifts and soft stool in the rectum docusate sodium 100 mg capsule 100 mg PO BID Referrals: Sai Iniguez MD [Physician] - 1 week (Urinary retention, 18 [place] coude catheter with 30 cc balloon placed in the emergency department. Kidney function normal, urinalysis positive for blood only) Print Language: Cameroonian
--- NOTE | 2024-01-21 07:00 | PC.NURSE ---
Report taken from Saniya Cornelius RN
[2024-01-21 07:24] LABS: MANUAL DIFF FLAG NO
[2024-01-21] MEDS: Lidocaine HCl 2 % Urojet 10 ML JEL.PF.APP TOPICAL (07:28)
[2024-01-21 07:32] LABS: Basophils Percent Auto 0.3 % (0-2); Eosinophils Absolute Auto 0.3 X10*3/uL (0.0-0.4); Eosinophils Percent Auto 3.8 % (0-4); Hematocrit 41.2 % (42.0-52.0); Hemoglobin 14.1 g/dl (14.0-18.0); Imm Gran Abs Auto 0.02 X10*3/uL (0.00-0.03); Imm Gran Pct Auto 0.3 % (0.0-0.4); Lymphocytes Absolute Auto 1.4 X10*3/uL (1.2-4.9); Lymphocytes Percent Auto 19.1 % (20-40); Mean Corpuscular HGB Conc 34.2 g/dl (31.0-36.0); Mean Corpuscular Hemoglobin 30.7 pg (27.0-33.0); Mean Corpuscular Volume 89.8 fL (80.0-98.0); Monocytes Absolute Auto 0.6 X10*3/uL (0.1-1.2); Monocytes Percent Auto 8.4 % (2-11); Neutrophils Absolute Auto 4.9 x10*3/uL (2.0-8.3); Neutrophils Percent Auto 68.1 % (45-73); Platelet Count 367 X10*3/uL (160-400); Red Blood Count 4.59 X10*6/uL (4.60-5.80); Red Cell Distribution Width 13.1 % (11.0-16.0); White Blood Count 7.1 X10*3/uL (4.8-10.8)
[2024-01-21 07:39] LABS: Alanine Aminotransferase 21 U/L (0-40); Albumin Level 3.6 g/dL (3.5-5.0); Alkaline Phosphatase 90 U/L (39-117); Anion Gap 14 (12-20); Aspartate Amino Transferase 14 U/L (5-37); Bilirubin Total 0.6 mg/dL (0.0-1.0); Blood Urea Nitrogen 12 mg/dL (9-16); Calcium 9.4 mg/dL (8.4-10.2); Carbon Dioxide 29 mmol/L (22-29); Chloride 102 mmol/L (96-108); Creatinine Clr Calc Pharmacy 114.1; Estimated Glomerular Filt Rate > 60; Glucose Random 105 mg/dL (60-115); Potassium 3.5 mmol/L (3.3-5.1); Sodium 141 mmol/L (135-145); Total Protein 7.5 g/dL (6.5-8.0)
--- NOTE | 2024-01-21 07:47 | PC.NURSE ---
18Fr Coude catheter inserted at bedside. Catheter is patent, immediate 700cc urine output.
[2024-01-21 08:32] LABS: Appearance Urine Clear; Color Urine Yellow; Glucose Urine UA Negative (Negative); Leukocyte Esterase Urine Negative (Negative); Nitrite Urine Negative (Negative); UMIC TRIGGER UACC YES; Urine Blood Moderate (2+) (Negative); Urine Ketones Negative (Negative); Urine Protein Trace mg/dL (Neg-Trace)
--- NOTE | 2024-01-21 08:37 | PHA.MEDREC ---
Pharmacy Consult ? Medication Reconciliation Pharmacy has completed the medication reconciliation, utilized list from [facility] [place].
[2024-01-21 08:41] LABS: Bacteria Urine None Seen (None Seen); Hyaline Casts Urine 0-2 /LPF (0-2); RBC Urine >20 /HPF (0-2); Squamous Epithelial Cell Urine 0-2 /HPF (0-2); WBC Urine 0-5 /HPF (0-5)
[2024-01-21 12:42] VITALS: BP 129/86; PULSE 95; RESP 18; TEMP 36.6; O2SAT 94
--- NOTE | 2024-01-21 12:43 | PC.NURSE ---
Report called to [facility] [place], [place].
== END 2024-01-21 12:43 ==
PROVIDERS: Emergency Provider Emergency Medicine Emergency Medical Services; PCP Internal Medicine Interventional Cardiology
DX: R33.9 Retention of urine, unspecified (principal); Z87.820 Personal history of traumatic brain injury; I10 Essential (primary) hypertension; J44.9 Chronic obstructive pulmonary disease, unspecified; Z79.899 Other long term (current) drug therapy
CPT/HCPCS: 36415; 51702; 80053; 81001; 85025; 99284

== ENCOUNTER 2024-01-28 10:35 | Outpatient (REF) | payer MEDICARE, SELFPAY ==
[2024-01-28 11:00] LABS: Appearance Urine Cloudy; Color Urine Yellow; Glucose Urine UA Negative (Negative); Leukocyte Esterase Urine Moderate (2+) (Negative); Nitrite Urine Negative (Negative); PH 6.5 (5.0-9.0); Specific Gravity - Urine 1.025 (1.005-1.025); UMIC TRIGGER UACC YES; Urine Blood Large (3+) (Negative); Urine Ketones Negative (Negative); Urine Protein 300 (3+) mg/dL (Neg-Trace)
[2024-01-28 11:14] LABS: Bacteria Urine 2+ (None Seen); Hyaline Casts Urine 0-2 /LPF (0-2); RBC Urine >20 /HPF (0-2); Squamous Epithelial Cell Urine 0-2 /HPF (0-2); UACC Culture Trigger YES; WBC Urine >50 /HPF (0-5)
== END 2024-01-28 10:36 | disposition home or self-care (01) ==
LOC: HO.LNP 10:35
PROVIDERS: Visit Provider Internal Medicine Interventional Cardiology
DX: Z13.89 Encounter for screening for other disorder (principal)
CPT/HCPCS: 81001; 81003; 87086; 87088; 87186

== ENCOUNTER 2024-01-29 06:07 | Outpatient (REF) | payer MEDICARE, SELFPAY ==
[2024-01-29 06:11] LABS: MANUAL DIFF FLAG NO
[2024-01-29 06:49] LABS: Basophils Percent Auto 0.4 % (0-2); Eosinophils Absolute Auto 0.4 X10*3/uL (0.0-0.4); Hemoglobin 13.8 g/dl (14.0-18.0); Imm Gran Abs Auto 0.04 X10*3/uL (0.00-0.03); Imm Gran Pct Auto 0.5 % (0.0-0.4); Lymphocytes Absolute Auto 1.5 X10*3/uL (1.2-4.9); Lymphocytes Percent Auto 18.7 % (20-40); Mean Corpuscular HGB Conc 33.7 g/dl (31.0-36.0); Mean Corpuscular Hemoglobin 30.3 pg (27.0-33.0); Mean Corpuscular Volume 90.1 fL (80.0-98.0); Mean Platelet Volume 10.3 fL (9.4-12.4); Monocytes Absolute Auto 0.6 X10*3/uL (0.1-1.2); Monocytes Percent Auto 7.9 % (2-11); Neutrophils Absolute Auto 5.3 x10*3/uL (2.0-8.3); Neutrophils Percent Auto 67.5 % (45-73); Platelet Count 352 X10*3/uL (160-400); Red Blood Count 4.55 X10*6/uL (4.60-5.80); Red Cell Distribution Width 13.2 % (11.0-16.0); White Blood Count 7.8 X10*3/uL (4.8-10.8)
== END 2024-01-29 06:08 | disposition home or self-care (01) ==
LOC: HO.HSH2N 06:07
PROVIDERS: Visit Provider Internal Medicine Interventional Cardiology
DX: R30.0 Dysuria (principal)
CPT/HCPCS: 36415; 85025

== ENCOUNTER 2024-02-06 12:58 | Outpatient (AMB) | payer MEDICARE, SELFPAY ==
--- NOTE | 2024-02-06 13:02 | A.OFFVIS_ITS ---
Intake Intake Visit Reasons: ER f/u cath removed 01/28 (PVR) Intake Note: Patient is present for ER follow up Rod Machine Operator Required: No Allergies amitriptyline [AMITRIPTYLINE] Allergy (Unknown, Verified 02/06/24 13:02) UNKNOWN egg [EGGS] Allergy (Unknown, Verified 02/06/24 13:02) UNKNOWN influenza virus vaccine, specific [FLU VACCINE] Allergy (Unknown, Verified 02/06/24 13:02) UNKNOWN loratadine [From CLARITIN] Allergy (Unknown, Verified 02/06/24 13:02) UNKNOWN mometasone furoate [From ASMANEX TWISTHALER] Allergy (Unknown, Verified 02/06/24 13:02) UNKNOWN perphenazine [PERPHENAZINE] Allergy (Unknown, Verified 02/06/24 13:02) UNKNOWN Influenza Virus Vaccine Live Allergy (Unknown, Uncoded 02/06/24 13:02) Unknown HPI HPI Comments History of Present Illness Details Aravind is a pleasant male. He is seen for the following urologic conditions - lower urinary tract symptoms with prio r urinary retention Seen at [facility]. Continues with retention and overflow incontinence. Had been unable to straight catheterization. Espinoza catheter placed at [place]. Has been able to void since being placed on finasteride 5 mg and terazosin 10 mg PVR has been under 100 cc PSA 10/21 9.8 Continue with prostate medication Review in 6 months with lab work Lower urinary tract symptoms Initially seen [facility] January 2020 urinary retention No prior prostate medications Cystoscopy performed as enlarged prostate and catheter placed over a wire Current symptoms minimal, denies nocturia, weakness of stream or incomplete emptying PVR today 63cc Current therapy - maximum combination therapy with finasteride, terazosin PFSH Medical History Nutritional deficiency TBI (traumatic brain injury) Vertigo GERD (gastroesophageal reflux disease) Depression Anemia Anxiety Tinnitus Hypertension COPD (chronic obstructive pulmonary disease) Bronchitis Asthma Social History Alcohol intake: never Advance Directives Date on File: 02/11/20 Review of Systems Const Denies chills and Denies fever(s) Card Reports no additional complaints and Denies syncope Resp Denies cough GI Denies abdominal pain and Denies heartburn Reports as per HPI and Denies change in libido Neuro Denies syncope Psych Denies change in libido Endo Denies change in libido Physical Exam Const General: cooperative, healthy appearing, comfortable and no acute distress Orientation/consciousness: patient oriented x3 HEENT Face and sinus: Yes normal facial exam Mouth: moist mucous membranes Neck Neck: Yes normal visual inspection, Yes full ROM and Yes trachea midline Chest Chest palpation & inspection: normal inspection of the chest Resp Effort & Inspection: normal respiratory effort, able to speak in complete sentences and no respiratory distress GI Inspection: Yes normal to inspection Back/Spine/Pelvis Cervical Spine: normal cervical lordosis Thoracic/Lumbar Spine: thoracic and lumbar spine normal to inspection Skin General skin exam: no rashes or lesions noted Neuro General: patient oriented x3, gait normal, tone normal and moves all extremities Extrem General: Yes normal to inspection and Yes capillary refill normal Assessment & Plan Assessment & Plan (1) BPH w urinary obs/LUTS: Code(s): N40.1 - Benign prostatic hyperplasia with lower urinary tract symptoms; N13.8 - Other obstructive and reflux uropathy (2) Urinary retention with incomplete bladder emptying: Code(s): R33.9 - Retention of urine, unspecified Plan Continue finasteride and terazosin Watch PSA which has started to rise Patient Instructions: Imaging studies, laboratory and physical exam results were discussed and reviewed in detail. No major barriers to patient understanding were identified. An opportunity to ask questions regarding the treatment plan was provided. All questions were answered. The patient expressed understanding and agreement with the above treatment plan. The patient is aware they should contact our office by phone for worsening of their current condition or the appearance of new urologic symptoms. Compliance is encouraged with any medications and followup testing that is ordered. It is a privilege to participate in the urologic care of your patient. If you have any questions or concerns regarding treatment for the above conditions, or other urologic issues, please do not hesitate to contact me. The office telephone contact is [phone]. This note is constructed using voice recognition software. While every effort has been made to ensure accuracy wardrobe assistant errors may have been included. Yours sincerely, Dr Sai Iniguez MD, PATIENCE [facility] - Urology Providers of Expert, Compassionate Care for the Genitourinary System Coding Level of Care Code 58102-Tyel Fac sub, mod Diagnoses BPH w urinary obs/LUTS N40.1; N13.8 Urinary retention with incomplete bladder emptying R33.9
== END 2024-02-06 16:00 | disposition home or self-care (01) ==
LOC: HO.HUSV 12:58
PROVIDERS: PCP Internal Medicine Interventional Cardiology; Visit Provider Urology
DX: N40.1 Benign prostatic hyperplasia with lower urinary tract symptoms (principal); N13.8 Other obstructive and reflux uropathy; R33.9 Retention of urine, unspecified
CPT/HCPCS: 99309

== ENCOUNTER 2024-02-10 12:58 | Outpatient (REF) | payer MEDICARE, SELFPAY ==
[2024-02-10 13:18] LABS: Appearance Urine Clear; Color Urine Yellow; Glucose Urine UA Negative (Negative); Leukocyte Esterase Urine Small (1+) (Negative); Nitrite Urine Negative (Negative); Specific Gravity - Urine 1.015 (1.005-1.025); UMIC TRIGGER UA YES; Urine Blood Negative (Negative); Urine Ketones Negative (Negative); Urine Protein Negative (Neg-Trace)
[2024-02-10 13:31] LABS: Bacteria Urine None Seen (None Seen); Hyaline Casts Urine 0-2 /LPF (0-2); RBC Urine 0-2 /HPF (0-2); Squamous Epithelial Cell Urine 0-2 /HPF (0-2); WBC Urine 0-5 /HPF (0-5)
== END 2024-02-10 12:59 | disposition home or self-care (01) ==
LOC: HO.HSH2W 12:58
PROVIDERS: Visit Provider Internal Medicine Interventional Cardiology
DX: R39.15 Urgency of urination (principal)
CPT/HCPCS: 81001

== ENCOUNTER 2024-07-17 08:20 | Outpatient (REF) | payer MEDICARE, SELFPAY ==
[2024-07-17 09:22] LABS: Anion Gap 11 (12-20); Blood Urea Nitrogen 18 mg/dL (9-16); Calcium 9.1 mg/dL (8.4-10.2); Carbon Dioxide 30 mmol/L (22-29); Chloride 105 mmol/L (96-108); Estimated Glomerular Filt Rate > 60; Glucose Random 84 mg/dL (60-115); Potassium 3.4 mmol/L (3.3-5.1); Sodium 143 mmol/L (135-145)
== END 2024-07-17 08:21 | disposition home or self-care (01) ==
LOC: HO.HSH2N 08:20
PROVIDERS: Visit Provider Internal Medicine Interventional Cardiology
DX: I10 Essential (primary) hypertension (principal)
CPT/HCPCS: 36415; 80048

== ENCOUNTER 2024-07-30 16:09 | Outpatient (AMB) | payer MEDICARE, SELFPAY ==
--- NOTE | 2024-07-30 15:43 | HO.VETSHOME ---
Intake Intake Visit Reasons: 6M follow up Allergies amitriptyline [AMITRIPTYLINE] Allergy (Unknown, Verified 02/06/24 13:02) UNKNOWN egg [EGGS] Allergy (Unknown, Verified 02/06/24 13:02) UNKNOWN influenza virus vaccine, specific [FLU VACCINE] Allergy (Unknown, Verified 02/06/24 13:02) UNKNOWN loratadine [From CLARITIN] Allergy (Unknown, Verified 02/06/24 13:02) UNKNOWN mometasone furoate [From ASMANEX TWISTHALER] Allergy (Unknown, Verified 02/06/24 13:02) UNKNOWN perphenazine [PERPHENAZINE] Allergy (Unknown, Verified 02/06/24 13:02) UNKNOWN Influenza Virus Vaccine Live Allergy (Unknown, Uncoded 02/06/24 13:02) Unknown HPI HPI Comments History of Present Illness Details Aravind is a pleasant male. He is seen for the following urologic conditions - lower urinary tract symptoms with prior urinary retention Seen at [facility]. 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 Initially seen [facility] January 2020 urinary retention No prior prostate medications Cystoscopy performed as enlarged prostate and catheter placed over a wire Current symptoms minimal, denies nocturia, weakness of stream or incomplete emptying PVR today 63cc Current therapy - maximum combination therapy with finasteride, terazosin PFSH Medical History Nutritional deficiency TBI (traumatic brain injury) Vertigo GERD (gastroesophageal reflux disease) Depression Anemia Anxiety Tinnitus Hypertension COPD (chronic obstructive pulmonary disease) Bronchitis Asthma Social History Alcohol intake: never Advance Directives Date on File: 02/11/20 Review of Systems Const Denies chills and Denies fever(s) Card Reports no additional complaints and Denies syncope Resp Denies cough GI Denies abdominal pain and Denies heartburn Reports as per HPI and Denies change in libido Neuro Denies syncope Psych Denies change in libido Endo Denies change in libido Physical Exam Const General: cooperative, healthy appearing, comfortable and no acute distress Orientation/consciousness: patient oriented x3 HEENT Face and sinus: Yes normal facial exam Mouth: moist mucous membranes Neck Neck: Yes normal visual inspection, Yes full ROM and Yes trachea midline Chest Chest palpation & inspection: normal inspection of the chest Resp Effort & Inspection: normal respiratory effort, able to speak in complete sentences and no respiratory distress GI Inspection: Yes normal to inspection Back/Spine/Pelvis Cervical Spine: normal cervical lordosis Thoracic/Lumbar Spine: thoracic and lumbar spine normal to inspection Skin General skin exam: no rashes or lesions noted Neuro General: patient oriented x3, gait normal, tone normal and moves all extremities Extrem General: Yes normal to inspection and Yes capillary refill normal Assessment & Plan Assessment & Plan (1) Urinary retention with incomplete bladder emptying: Code(s): R33.9 - Retention of urine, unspecified (2) BPH w urinary obs/LUTS: Code(s): N40.1 - Benign prostatic hyperplasia with lower urinary tract symptoms; N13.8 - Other obstructive and reflux uropathy (3) Bladder instability: Code(s): N32.89 - Other specified disorders of bladder Plan Trial Myrbetriq 25 mg Two month follow-up Patient Instructions: This note is constructed using voice recognition software. While every effort has been made to ensure accuracy bunker worker errors may have been included. Imaging studies, laboratory and physical exam results were discussed and reviewed in detail. No major barriers to patient understanding were identified. An opportunity to ask questions regarding the treatment plan was provided. All questions were answered. The patient expressed understanding and agreement with the above treatment plan. The patient is aware they should contact our office by phone for worsening of their current condition or the appearance of new urologic symptoms. Compliance is encouraged with any medications and followup testing that is ordered. It is a privilege to participate in the urologic care of your patient. If you have any questions or concerns regarding treatment for the above conditions, or other urologic issues, please do not hesitate to contact me. The office telephone contact is [phone]. Sincerely, Dr Sai Iniguez MD, PATIENCE [facility] - Urology Compassionate Specialist Care for the Genitourinary System Coding Level of Care Code 53258-[id number] Fac sub, mod Diagnoses Urinary retention with incomplete bladder emptying R33.9 BPH w urinary obs/LUTS N40.1; N13.8 Bladder instability N32.89
--- OUTSIDE RECORDS SUMMARY | 2024-07-30 17:59 | XMS_ITS | Encounter Summary ---
Author Organization [employer] Address [address] [place] [address] Care Team Providers Care Marketing Administrative Assistant Name Role Phone Unavailable Primary Care Provider Unavailabl e Encounter Details Date Type Department Care Team ([facility] st Contact Info) Description 05/24/2023 Abstract [facility] [address] [place] [address] Reji Gomez, DMD [address] [place] [address] Social History Tobacco Use Types Packs/Day Years Used Date Smoking Tobacco: Former Cigarettes 1.5 60 Passive Smoke Exposure: Never Smokeless Tobacco: Never Alcohol Use Standard Drinks/Week Comments Defer 0 (1 standard drink = 0.6 oz pur e alcohol) Sex and Gender Information Value Date Recorded Sex Assigned at Male 02/27/2022 10:26 AM EDT Legal Sex Male 10:26 AM EDT Gender Identity Male 02/27/2022 10:26 AM EDT Sexual Orientation Straight 02/27/2022 10 :26 AM EDT documented as of this encounter Plan of Treatment Not on file documented as of this encounter Visit Diagnoses Not on filedocumented in this encounter
--- OUTSIDE RECORDS SUMMARY | 2024-07-30 17:59 | XMS_ITS | Clinical Summary ---
Author Organization [employer] Address [address] [place] [address] Care Team Providers Care Film Washer Name Role Phone Unavailable Primary Care Provider Unavailabl e Allergies Active Allergy Reactions Criticality Noted Date Comments Amitriptyline 10/17/2013 Egg-Derived Products 10/17/2013 Gluten Meal 10/17/2013 Loratadine 10/17/2013 Mometasone 10/17/2013 Perphenazine 10/17/2013 Medications tuberculin (Aplisol) 5 UNIT/0.1ML injection Active tiotropium (Spiriva HandiHaler) 18 MCG inhalation capsule inhale 1 capsule by inhalation route every day using 2 inhalations via handihaler 6 Active sodium phosphate (Fleets) 7-19 GM/118ML enema enema Active magnesium hydroxide (Milk of Magnesia) 400 MG/5ML suspension Take 30 mL by mouth at bed time. Active Docusate Sodium (DSS) 100 MG capsule Take 1 capsule by mouth at bed time. Active budesonide-form oterol (Symbicort) 160-4.5 MCG/ACT inhaler Inhale 2 puffs every 12 (twelve) hours. 6 Active bisacodyl (Laxative) 10 MG suppository Insert 1 suppository into the rectum at bed time. Active albuterol (2.5 MG/3ML) 0.083% nebulizer solution Inhale 3 mL every 8 (eight) hours. 5 Active acetaminophen (Tylenol) 325 MG tablet Take 1 tablet by mouth every 4 (four) hours. Active traZODone (Desyrel) 50 MG tablet Take 1 tablet by mouth every 8 (eight) hours. Active amLODIPine (Norvasc) 5 MG tablet Take 1 tablet by mouth at bed time. Active dupilumab (Dupixent) 300 MG/2ML injection Inject 300 mg under the skin 1 (one) time. 300 mg subcutaneous as directed 08/13/23 & 08/27/23 Active finasteride (Proscar) 5 MG tablet Take 5 mg by mouth in the morning. Do not crush, chew, or split. Active fluticasone (Flonase) 50 MCG/ACT nasal spray Administer 1 spray into each nostril in the morning. Shake gently. Before first use, prime pump. After use, clean tip and replace cap. Active hydroCHLOROthia zide (HYDRODiuril) 25 MG tablet Take 25 mg by mouth in the morning. Active oseltamivir (Tamiflu) 30 MG capsule Take by mouth. Activ e potassium chloride 40 MEQ/15ML (20%) solution Take 40 mEq by mouth in the morning. Active chlorhexidine (Peridex) 0.12 % solution Use 15 mL in the mouth or throat if needed for wound care. Active alendronate-cho lecalciferol (Fosamax Plus D) 70-5600 MG-UNIT tablet Take 1 tablet by mouth every 7 (seven) days. Take in the morning with a full glass of water, on an empty stomach, and do not take anything else by mouth or lie down for the next 30 min. 1 tablet by mouth daily 1,000 unit Active terazosin (Hytrin) 10 MG capsule Take 10 mg by mouth at bedtime. Active Active Problems No known active problems Encounters Date Type Department Care Team Description 07/17/2024 9:30 AM EDT Office Visit [facility] D[facility]AL [address] [place] [id number] Samantha Sevilla from Last 3 Months Social History Tobacco Use Types Packs/Day Years Used Date Smoking Tobacco: Former Cigarettes 1.5 60 Passive Smoke Exposure: Never Smokeless Tobacco: Never Tobacco Cessation:Counseling Given: Not Answered Alcohol Use Standard Drinks/Week Comments Defer 0 (1 standard drink = 0.6 oz pur e alcohol) Sex and Gender Information Value Date Recorded Sex Assigned at Male 02/27/2022 10:26 AM EDT Legal Sex Male 10:26 AM EDT Gender Identity Male 02/27/2022 10:26 AM EDT Sexual Orientation Straight 02/27/2022 10 :26 AM EDT Last Filed Vital Signs Vital Sign Reading Time Taken Comments Blood Pressure 118/68 09/06/2022 9:00 AM EDT Pulse 68 09/06/2022 9:00 AM EDT Temperature - - Respiratory Rate - - Oxygen Saturation - - Inhaled Oxygen Concentration - - Weight - - Height - - Body Mass Index - - Plan of Treatment Health Maintenance Due Date Last Done Comments Depression Screening 1945 Lipid Panel 1945 SDOH Screening 1945 Alcohol/Substance Use Screening 1959 Hepatitis C Screening 1965 RSV Patients and Patients Aged 60 years or older (1 - 1-dose 75+ series) 2022 Dental X-Ray: Bitewings 08/04/2023 08/02/2022 DTaP/Tdap/Td Vaccines (3 - Td or Tdap) 10/15/2023 10/14/2013, 06/06/2012 COVID-19 Vaccine ( season) 2023 02/13/2023, 10/04/2022, 01/12/2022, Additional history exists Dental Oral Exam 09/03/2024 03/05/2024, , 08/02/2022 Dental Prophylaxis 01/18/2025 07/17/2024, 1 06/10/2023, 01/23/2024, Additional history exists Tobacco Screening 07/17/2025 07/17/2024 Dental X-Ray: Full Mouth 08/03/2025 08/02/2022 Zoster Vaccines Completed 09/27/2021, 07/12/2021 Pneumococcal Vaccine: 50+ Years Completed 02/09/2022 Influenza Vaccine Completed 02/15/2024, , 02/01/2022, Additional history exists HIB Vaccines Aged Out No longer eligi ble based on patient's age to complete this topic HPV Vaccines Aged Out No longer eligi ble based on patient's age to complete this topic Hepatitis A Vaccines Aged Out No long er eligible based on patient's age to complete this topic Hepatitis B Vaccines Aged Out No long er eligible based on patient's age to complete this topic IPV Vaccines Aged Out No longer eligi ble based on patient's age to complete this topic Meningococcal Vaccine Aged Out No tereza vidhya eligible based on patient's age to complete this topic RSV under 20 months Aged Out No longe r eligible based on patient's age to complete this topic Rotavirus Vaccines Aged Out No longer eligible based on patient's age to complete this topic Procedures Procedure Name Priority Date/Time Associated Diagnosis Comments ORAL HYGIENE INSTRUCTIONS Routine 2024 9:30 AM EDT TOPICAL APPLICATION OF FLUORIDE VARNISH Routine 07/17/2024 9:30 AM EDT PROPHYLAXIS - ADULT Routine 07/17/2024 9 :30 AM EDT PERIODIC ORAL EVALUATION - ESTABLISHED PATIENT Routine 03/05/2024 10:30 AM EST INTRAORAL - COMPLETE SERIES OF RADIOGRAPHIC IMAGES Routine 08/02/2022 8:00 AM EDT from Last 3 Months or Most Recently Relevant to Health Maintenance
--- OUTSIDE RECORDS SUMMARY | 2024-07-30 17:59 | XMS_ITS | Encounter Summary ---
Author Organization [employer] Address [address] [place] [address] Care Team Providers Care Computer Console Operator Name Role Phone Unavailable Primary Care Provider Unavailabl e Encounter Details Date Type Department Care Team ([facility] st Contact Info) Description 05/24/2023 Abstract [facility] D[facility] [address] [place] [address] Reji Gomez, DMD [address] [place] [address] Social History Tobacco Use Types Packs/Day Years [...]
--- OUTSIDE RECORDS SUMMARY | 2024-07-30 17:59 | XMS_ITS | Data Portability ---
Author Organization [place] - [facility], Allergy Address [address] [address] Care Team Providers Care Production Miner Name Role Phone FAUSTO, FREDERICK Primary Care Provider Assessment Encounter Date Assessment Date Assessment LastModified by Organization Details LastModified Time 02/18/2024 02/18/2024 Patient appears to be benefiting from Dupixent injections. Previously he had grade 4 polyps growing out of his nose. Now there are grade 4 polyps in the nose on the left with septal deviation to the right and grade 2-3 polyps on the right side. At this point the polyps are still significant. I would suggest continuing injections every 2 weeks and continuing daily fluticasone nasal spray. I will see him back in 6 months grayson Not available 02/18/2024 13:30:13 Plan of Treatment Reminders Order Date Submit Date Provider Last Modified By Organization Details Last Modified Time Details Appointments Establish ed 30 2024 02:00P M NATALI MCDERMOTT MD Not available Not available Not available Lab None recorded. Referral None recorded. Procedures None recorded. Surgeries None recorded. Imaging None recorded. Medication Orders None recorded. Patient TargetsNo targets recorded. Patient InstructionsNo instructions recorded. Reason for Referral None Reported. Problems Name Problem SNOMED Code Status Onset Date Resolution Date Notes Provider Name and Address Organization Details Recorded Time Polyp of nasal cavity 689480169 Active 2018 Polyp of nasal cavity ; Note: Date Diagno sed: 019 3:53 PM (J33.0 ) Not Available [facility] 4 02:15:31 Polyp of nasal sinus 89271608 Active 2018 Other polyp of sinus; Note: Date Diagno sed: 11/29/19 19 10:59 AM (J33.8 ) Not Available [facility] 4 02:14:07 Nasal congestion 89507510 Active 2018 Nasal conges tion; Note: Date Diagno sed: 019 3:53 PM (R09.8 1) Not Available [facility] 4 02:14:16 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 708576896 Active 2023 NATALI WILSON MD [address], [place], [address] , [facility] - [facility] 4 13:31:08 Deviated nasal septum 205429847 Active 2023 NATALI WILSON MD [address], [place], [address] , 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 4 13:31:18 Problem Notes None recorded. Procedures Surgical History Date Name Laterality Status Provider Name and Address Organization Details Recorded Time 4 JMSNasal/Sinus Endoscopy completed NATALI LEE MD [address] [facility],[place] [address], [place], [address], [facility] 02/18/2024 13:31:02 Imaging Results None recorded. Procedure Notes None recorded. Medical Equipment None Reported. Allergies Allergen ID Allergen Name Allergen Category Reaction Reaction Severity Criticality Documentation Date Start Date Code Code System Note Provider Name and Address Organization Details Recorded Time 44001 Claritin medicatio n other Not available Not available 09/11/202373006 6 RxNorm React ion: unkno wn, unspe cifie d;; Not Available [facility] 4 00:48:26 85185 egg extract food,medi cation other Not available Not available 09/11/2023 79941 15 RxNorm React ion: unkno wn, unspe cifie d;; Not Available [facility] 4 00:48:35 37530 Dairy medicatio n other Not available Not available 09/11/2023 18701 UNK React ion: unkno wn, unspe cifie d;; Not Available [facility] 4 00:48:35 44491 Elavil medicatio n other Not available Not available 09/11/2023 22982 RxNorm React ion: unkno wn, unspe cifie d;; Not Available [facility] 4 00:48:41 73559 acetamino phen / oxycodone medicatio n other Not available Not available 09/11/2023 31380 3 RxNorm React ion: unkno wn, unspe cifie d;; Not Available [facility] 4 00:48:52 91862 Influenza medicatio n other Not available Not available 09/11/2023 63548 UNK React ion: unkno wn, unspe cifie d;; Not Available [facility] 4 00:48:52 38763 Triavil medicatio n other Not available Not available 09/11/2023 82171 UNK React ion: unkno wn, unspe cifie d;; Not Available [facility] 4 00:49:00 Medications Name Sig Start Date Stop Date Status Note LastModified by Organization Details LastModified Time amlodipine 2.5 mg tablet Take 1 tablet every day by oral route. active Not Available Not Available No t Available amlodipine 5 mg tablet active Medicatio n ID: [id number] Br and Name: amlodipin e Send Method: E-Prescri bed Subs Allowed: subs OK Medica tionGener icName: amlodipin e Not Available Not Available Not Available potassium chloride 20 mEq/15 mL oral liquid active Medicatio n ID: [id number] Br and Name: potassium chloride Send Method: E-Prescri bed Subs Allowed: subs OK Medica tionGener icName: potassium chloride Not Available Not Available Not Available ketorolac 0.5 % eye drops INSTILL 1 DROP INTO AFFECTED EYE(S) BY OPHTHALMI C ROUTE 4 TIMES PER DAY active Not Available Not Available No t Available Advair Diskus 250 mcg-50 mcg/dose powder for inhalation active Medicatio n ID: [id number] Br and Name: Advair Diskus Se nd Method: E-Prescri bed Subs Allowed: subs OK Medica tionGener icName: Advair Diskus Not Available Not Available Not Available docusate sodium 100 mg capsule 2018 active Medicatio n ID: [id number] Br and Name: docusate sodium Se nd Method: E-Prescri bed Subs Allowed: subs OK Medica tionGener icName: docusate sodium Not Available Not Available Not Available hydrochlor othiazide 25 mg tablet active Medicatio n ID: [id number] Br and Name: hydrochlo rothiazid e Send Method: E-Prescri bed Subs Allowed: subs OK Medica tionGener icName: hydrochlo rothiazid e Not Available Not Available Not Available triamcinol one acetonide 0.1 % lotion APPLY A THIN LAYER TO THE AFFECTED AREA(S) BY TOPICAL ROUTE 2 TIMES PER DAY active Not Available Not Available No t Available terazosin 10 mg capsule active Medicatio n ID: [id number] Br and Name: terazosin Send Method: E-Prescri bed Subs Allowed: subs OK Medica tionGener icName: terazosin Not Available Not Available Not Available finasterid e 5 mg tablet active Medicatio n ID: [id number] Br and Name: finasteri de Send Method: E-Prescri bed Subs Allowed: subs OK Medica tionGener icName: finasteri de Not Available Not Available Not Available bisacodyl 5 mg tablet Take 1 tablet every day by oral route. active Not Available Not Available No t Available tiotropium bromide 18 mcg capsule with inhalation device active Medicatio n ID: [id number] Br and Name: tiotropiu m bromide S end Method: E-Prescri bed Subs Allowed: subs OK Medica tionGener icName: tiotropiu m bromide Not Available Not Available Not Available chlorhexid ine gluconate 0.12 % mouthwash active Medicatio n ID: [id number] Br and Name: chlorhexi dine gluconate Send Method: E-Prescri bed Subs Allowed: subs OK Medica tionGener icName: chlorhexi dine gluconate Not Available Not Available Not Available cholecalci ferol (vitamin D3) 25 mcg (1,000 unit) tablet active Medicatio n ID: [id number] Br and Name: cholecalc iferol (vitamin D3) Send Method: E-Prescri bed Subs Allowed: subs OK Medica tionGener icName: cholecalc iferol (vitamin D3) Not Available Not Available Not Available Symbicort 160 mcg-4.5 mcg/actuat ion HFA aerosol inhaler 2018 active Medicatio n ID: [id number] Br and Name: Symbicort Send Method: E-Prescri bed Subs Allowed: subs OK Medica tionGener icName: Symbicort Not Available Not Available Not Available Nasal Usk (sodium chloride) 0.65 % aerosol active Medicatio n ID: [id number] Br and Name: Nasal Usk (sodium chloride) Send Method: E-Prescri bed Subs Allowed: subs OK Medica tionGener icName: Nasal Usk (sodium chloride) Not Available Not Available Not Available Flonase Allergy Relief 50 mcg/actuat ion nasal spray,susp ension active Medicatio n ID: [id number] Br and Name: Flonase Allergy Relief Se nd Method: E-Prescri bed Subs Allowed: subs OK Medica tionGener icName: Flonase Allergy Relief Not Available Not Available Not Available tiotropium bromide 1.25 mcg/actuat ion mist for inhalation Inhale 2 puffs every day by inhalatio n route. active Not Available Not Available No t Available Dupixent 300 mg/2 mL subcutaneo us syringe inject 300MG (1 injection ) subcutane ously every other week. 2023 active Not Available Not Available Not Avai lable Vitals Date Recorded Body height Body mass index (BMI) Body weight Provider Name and Address Organization Details Last Updated DateTime 02/18/2024 170.18 cm 31.3 kg/m2 50699.47 g Yanira Buckner [place] - [facility] 02/18/2024 13:07:17 Social History None recorded. Functional Status None recorded. Mental Status None recorded. Family History Nothing Reported. Medical History Condition Response Nasal or Sinus Problems Y Dementia Y Nasal polyps Y Asthma Y GERD/Reflux Y Hypertension Y Past Encounters Encounter ID Performer Location Encounter Start Date Encounter Closed Date Diagnosis/Indication Diagnosis SNOMED-CT Code Diagnosis ICD10 Code Diagnosis Note [id number] NATALI WILSON MD [facility] [address] [place] [address] 02/18/2024 12:50:09 02/18/2024 13:29:59 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 314545826 J33.9 Deviated nasal septum 12 1932916 J34.2 Hypereosin ophilic syndrome 062781801 D72.119 Health Concerns Section Related Observation LastModified by Organization Detai ls LastModified Time None Recorded Concern Status LastModified by Organization Details LastModified Time None Recorded Advance Directives Directive None Recorded Payers Encounter Date Sequence Insurance Name Policy Number Policy Castrejon Covered Member ID Castrejon Member ID Guarantor Name 02/18/2024 1 MEDICARE B-[employer]: [employer] Aravind Phelan [id number] Aravind Phelan Notes Date Note Type Note Provider Name and Address Organization Details Recorded Time 02/18/2024 text/html Hx of nasal poly ps and elevated eosinophils. [facility] Dup[facility]ent [facility] has a history of dementia, hypertension and asthma. He has been on Dupixent injections for several months. Notes improvement in his nasal breathing. Reports recent cataract surgery. NATALI LEE MD [address], [address], [facility] - [facility] 02/18/2024 13:32:00
--- OUTSIDE RECORDS SUMMARY | 2024-07-30 18:00 | XMS_ITS | Encounter Summary ---
Author Organization [employer] Address [address] [facility] [address] [place] [address] Care Team Providers Care Patient Access Specialist Name Role Phone Unavailable Primary Care Provider Unavailabl e Encounter Details Date Type Department Care Team ([facility] st Contact Info) Description 05/24/2023 Abstract [facility] [address] [place] [address] Reji Gomez, DMD [address] [place] [address] Social History Tobacco Use Types Packs/Day Years [...]
== END 2024-07-30 16:30 | disposition home or self-care (01) ==
LOC: HO.HUSV 16:09
PROVIDERS: PCP Internal Medicine Interventional Cardiology; Visit Provider Urology
DX: R33.9 Retention of urine, unspecified (principal); N40.1 Benign prostatic hyperplasia with lower urinary tract symptoms; N13.8 Other obstructive and reflux uropathy; N32.89 Other specified disorders of bladder
CPT/HCPCS: 99309

== ENCOUNTER 2024-09-16 06:47 | Outpatient (REF) | payer MEDICARE, SELFPAY ==
[2024-09-16 06:51] LABS: MANUAL DIFF FLAG NO
[2024-09-16 06:59] LABS: Basophils Percent Auto 0.5 % (0-2); Eosinophils Absolute Auto 0.2 X10*3/uL (0.0-0.4); Eosinophils Percent Auto 4.3 % (0-4); Hematocrit 39.7 % (42.0-52.0); Hemoglobin 13.5 g/dl (14.0-18.0); Imm Gran Abs Auto 0.02 X10*3/uL (0.00-0.03); Imm Gran Pct Auto 0.4 % (0.0-0.4); Lymphocytes Absolute Auto 1.2 X10*3/uL (1.2-4.9); Lymphocytes Percent Auto 21.8 % (20-40); Mean Corpuscular Hemoglobin 30.4 pg (27.0-33.0); Mean Corpuscular Volume 89.4 fL (80.0-98.0); Mean Platelet Volume 10.2 fL (9.4-12.4); Monocytes Absolute Auto 0.5 X10*3/uL (0.1-1.2); Monocytes Percent Auto 8.3 % (2-11); Neutrophils Absolute Auto 3.7 x10*3/uL (2.0-8.3); Neutrophils Percent Auto 64.7 % (45-73); Platelet Count 297 X10*3/uL (160-400); Red Blood Count 4.44 X10*6/uL (4.60-5.80); Red Cell Distribution Width 13.8 % (11.0-16.0); White Blood Count 5.6 X10*3/uL (4.8-10.8)
[2024-09-16 07:15] LABS: Alanine Aminotransferase 12 U/L (0-40); Albumin Level 3.5 g/dL (3.5-5.0); Alkaline Phosphatase 78 U/L (39-117); Anion Gap 13 (12-20); Aspartate Amino Transferase 15 U/L (5-37); Bilirubin Total 0.6 mg/dL (0.0-1.0); Blood Urea Nitrogen 28 mg/dL (9-16); Calcium 8.9 mg/dL (8.4-10.2); Carbon Dioxide 27 mmol/L (22-29); Chloride 105 mmol/L (96-108); Estimated Glomerular Filt Rate > 60; Glucose Fasting 96 mg/dL (60-99); Potassium 3.5 mmol/L (3.3-5.1); Sodium 141 mmol/L (135-145); Total Protein 6.8 g/dL (6.5-8.0)
[2024-09-16 07:37] LABS: Prostate Specific Antigen 15.08 ng/mL (<0.05-4.0)
== END 2024-09-16 06:48 | disposition home or self-care (01) ==
LOC: HO.HSH2N 06:47
PROVIDERS: Visit Provider Internal Medicine Interventional Cardiology
DX: R97.20 Elevated prostate specific antigen [PSA] (principal); I10 Essential (primary) hypertension
CPT/HCPCS: 36415; 80053; 84153; 85025

== ENCOUNTER 2024-10-01 12:01 | Outpatient (AMB) | payer MEDICARE, SELFPAY ==
--- NOTE | 2024-10-01 12:02 | A.OFFVIS_ITS ---
Intake Visit Reasons: PSA follow up Intake Note: Patient is present for PSA F/U Urology Medication:TERAZOSIN,POTASSIUM CHLORIDE,FINASTERIDE Antibiotic Allergy:NONE Blood Thinner:NONE Dependency Case Manager Required: No Allergies amitriptyline [AMITRIPTYLINE] Allergy (Unknown, Verified 10/01/24 12:03) UNKNOWN egg [EGGS] Allergy (Unknown, Verified 10/01/24 12:03) UNKNOWN influenza virus vaccine, specific [FLU VACCINE] Allergy (Unknown, Verified 10/01/24 12:03) UNKNOWN loratadine [From CLARITIN] Allergy (Unknown, Verified 10/01/24 12:03) UNKNOWN mometasone furoate [From ASMANEX TWISTHALER] Allergy (Unknown, Verified 10/01/24 12:03) UNKNOWN perphenazine [PERPHENAZINE] Allergy (Unknown, Verified 10/01/24 12:03) UNKNOWN Influenza Virus Vaccine Live Allergy (Unknown, Uncoded 10/01/24 12:03) Unknown [facility] Medical History Nutritional deficiency TBI (traumatic brain injury) Vertigo GERD (gastroesophageal reflux disease) Depression Anemia Anxiety Tinnitus Hypertension COPD (chronic obstructive pulmonary disease) Bronchitis Asthma Social History Alcohol intake: never Advance Directives Date on File: 02/11/20 Coding
--- OUTSIDE RECORDS SUMMARY | 2024-10-01 12:39 | XMS_ITS | Clinical Summary ---
Author Organization [email or web address] Address [address] [place] [address] Care Team Providers Care Telephone Sex Worker Name Role Phone Unavailable Primary Care Provider [...] Description 07/17/2024 9:30 AM EDT Office Visit [facility] [address] [place] [address] Samantha Sevilla from Last 3 Months Social [...] Mass Index - - Plan of Treatment Upcoming Encounters Date Type Department Care Team (Late st Contact Info) Description 10/08/2024 8:45 AM EDT Office Visit [facility] [address] [place], [place] [phone] Reji Gomez DMD [address] [place], [place] [phone] 10/15/2024 11:15 AM EDT Office Visit [facility] [address] [place] [address] Samantha Sevilla [address] [place], [place] [phone] Health Maintenance Due Date Last Done Comments [...] patient's age to complete this topic Meningococcal B Vaccine Aged Out No l onger eligible based on patient's age to complete [...]
--- NOTE | 2024-10-01 13:07 | HO.VETSHOME ---
Intake Intake Visit Reasons: PSA follow up Allergies amitriptyline [AMITRIPTYLINE] Allergy (Unknown, Verified 10/01/24 12:03) UNKNOWN egg [EGGS] Allergy (Unknown, Verified 10/01/24 12:03) UNKNOWN influenza virus vaccine, specific [FLU VACCINE] Allergy (Unknown, Verified 10/01/24 12:03) UNKNOWN loratadine [From CLARITIN] Allergy (Unknown, Verified 10/01/24 12:03) UNKNOWN mometasone furoate [From ASMANEX TWISTHALER] Allergy (Unknown, Verified 10/01/24 12:03) UNKNOWN perphenazine [PERPHENAZINE] Allergy (Unknown, Verified 10/01/24 12:03) UNKNOWN Influenza Virus Vaccine Live Allergy (Unknown, Uncoded 10/01/24 12:03) Unknown HPI HPI Comments History of Present Illness Details Aravind is a pleasant male. He is seen for the following urologic conditions - lower urinary tract symptoms with prior urinary retention Seen at [facility]. Two month follow-up Significant improvement in bladder performance Recent PVR proximally 100 Myrbetriq has been very helpful with urinary urgency and frequency unless incontinence. 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 Initially seen [facility] January 2020 urinary retention No prior prostate medications Cystoscopy performed as enlarged prostate and catheter placed over a wire Current symptoms minimal, denies nocturia, weakness of stream or incomplete emptying PVR today 63cc Current therapy - maximum combination therapy with finasteride, terazosin PFSH Medical History Nutritional deficiency TBI (traumatic brain injury) Vertigo GERD (gastroesophageal reflux disease) Depression Anemia Anxiety Tinnitus Hypertension COPD (chronic obstructive pulmonary disease) Bronchitis Asthma Social History Alcohol intake: never Advance Directives Date on File: 02/11/20 Review of Systems Const Denies chills and Denies fever(s) Card Reports no additional complaints and Denies syncope Resp Denies cough GI Denies abdominal pain and Denies heartburn Reports as per HPI and Denies change in libido Neuro Denies syncope Psych Denies change in libido Endo Denies change in libido Physical Exam Const General: cooperative, healthy appearing, comfortable and no acute distress Orientation/consciousness: patient oriented x3 HEENT Face and sinus: Yes normal facial exam Mouth: moist mucous membranes Neck Neck: Yes normal visual inspection, Yes full ROM and Yes trachea midline Chest Chest palpation & inspection: normal inspection of the chest Resp Effort & Inspection: normal respiratory effort, able to speak in complete sentences and no respiratory distress GI Inspection: Yes normal to inspection Back/Spine/Pelvis Cervical Spine: normal cervical lordosis Thoracic/Lumbar Spine: thoracic and lumbar spine normal to inspection Skin General skin exam: no rashes or lesions noted Neuro General: patient oriented x3, gait normal, tone normal and moves all extremities Extrem General: Yes normal to inspection and Yes capillary refill normal Assessment & Plan Assessment & Plan (1) Elevated PSA: Code(s): R97.20 - Elevated prostate specific antigen [PSA] Plan Risks and benefits regarding trans rectal ultrasound with prostate biopsy were discussed. Options of continued surveillance, no treatment and biopsy were offered. The risks include but are not limited to, urinary tract infection, sepsis, difficulty urinating, bleeding into the rectum or bladder that requires intervention and transfusion,and failure to diagnose prostate cancer. The patient understands the options and the risks involved. They wish to proceed. Printed information was provided to ensure he remains off anticoagulation for the appropriate length of time. He may require cardiology or PCP clearance. An antibiotic will be administered prior to, and following the procedure Prostate biopsy Patient Instructions: This note is constructed using voice recognition software. While every effort has been made to ensure accuracy audio engineer errors may have been included. Imaging studies, laboratory and physical exam results were discussed and reviewed in detail. No major barriers to patient understanding were identified. An opportunity to ask questions regarding the treatment plan was provided. All questions were answered. The patient expressed understanding and agreement with the above treatment plan. The patient is aware they should contact our office by phone for worsening of their current condition or the appearance of new urologic symptoms. Compliance is encouraged with any medications and followup testing that is ordered. It is a privilege to participate in the urologic care of your patient. If you have any questions or concerns regarding treatment for the above conditions, or other urologic issues, please do not hesitate to contact me. The office telephone contact is [phone]. Sincerely, Dr Sai Iniguez MD, PATIENCE [facility] - Urology Compassionate Specialist Care for the Genitourinary System Coding Level of Care Code 44814-[id number] Fac sub, high Diagnoses Elevated PSA R97.20
== END 2024-10-01 14:27 | disposition home or self-care (01) ==
LOC: HO.HUSV 12:01
PROVIDERS: PCP Internal Medicine Interventional Cardiology; Visit Provider Urology
DX: R97.20 Elevated prostate specific antigen [PSA] (principal)
CPT/HCPCS: 99310

== ENCOUNTER 2024-10-21 07:43 | Outpatient (REF) | payer MEDICARE, SELFPAY ==
--- OUTSIDE RECORDS SUMMARY | 2024-10-21 07:45 | XMS_ITS | Clinical Summary ---
Author Organization [employer] Address [address] [place] [address] Care Team Providers Care Coordinator Cardiopulmonary Services Name Role Phone Unavailable Primary Care Provider [...] 10 mg by mouth at bedtime. Active mirabegron ER (Myrbetriq) 25 MG 24 hr tablet Take 25 mg by mouth at bedtime. Do not crush, chew, or split. Active hydrocortisone 1 % cream Apply topically 2 times daily. Active sennosides (Senokot) 8.6 MG tablet Take 2 tablets by mouth Once per day. Active Cholecalciferol 25 MCG (1000 UT) tablet dispersible Take by mouth. Act óscar Active Problems No known active problems Encounters Date Type Department Care Team Description 10/15/2024 10:00 AM EDT Office Visit [facility] [address], [place] [phone] Amira Slater Dental calculus (Primary Dx); Dental plaque 10/08/2024 8:30 AM EDT Office Visit [facility] [address] [place] [address] Reji Gomez DMD from Last 3 Months Social History Tobacco [...] Use Screening 1957 Hepatitis C Screening 1965 Dental X-Ray: Bitewings 08/04/2023 08/02/2022 DTaP/Tdap/Td Vaccines (3 - Td or Tdap) 10/15/2023 10/14/2013, 06/06/2012 COVID-19 Vaccine ( season) 2023 02/13/2023, 10/04/2022, 01/12/2022, Additional history exists Dental Oral Exam 04/10/2025 10/08/2024, 09/2023, 08/15/2023, Additional history exists Dental Prophylaxis 04/17/2025 10/15/2024, 0 07/17/2024, 04/09/2024, Additional history exists Dental X-Ray: Full Mouth 08/03/2025 08/02/2022 Tobacco Screening 10/15/2025 10/15/2024 Zoster Vaccines Completed 09/27/2021, 07/12/2021 Pneumococcal Vaccine: 50+ Years Completed 02/09/2022 RSV Patients and Patients Aged 60 years or older Completed 03/15/2023 Influenza Vaccine Completed 02/15/2024, , 02/01/2022, Additional [...] Diagnosis Comments ORAL HYGIENE INSTRUCTIONS Routine 2024 10:00 AM EDT Dental calculus Dental plaque PROPHYLAXIS - ADULT Routine 10/15/2024 1 0:00 AM EDT Dental calculus Dental plaque TOPICAL APPLICATION OF FLUORIDE VARNISH Routine 10/15/2024 10:00 AM EDT FULL MOUTH DEBRIDEMENT TO ENABLE A COMPREHENSIVE ORAL EVALUATION AND DIAGNOSIS ON A SUBSEQUENT VISIT Routine 10/08/2024 8:30 AM EDT PERIODIC ORAL EVALUATION - ESTABLISHED PATIENT Routine 10/08/2024 8:30 AM EDT INTRAORAL - COMPLETE SERIES OF RADIOGRAPHIC IMAGES Routine 08/02/2022 8:00 AM EDT from Last 3 Months or Most Recently Relevant to Health Maintenance
--- NOTE | 2024-10-21 08:46 | P.OP_ITS ---
Operative Note Operative Note Date of Service: 10/21/24 Narrative: Preoperative diagnosis: Elevated PSA Postoperative diagnosis: Elevated PSA Procedure: 1. transrectal ultrasound measurement of prostate 2. transrectal ultrasound-guided pudendal nerve block 3. transrectal ultrasound-guided prostate biopsy 12 core Surgeon: Dr. Sai Iniguez Anesthetic: 10cc 1% lidocaine Indications for procedure: Elevated PSA 15 Counselling: Technical aspects, risks and benefits of proposed procedure were discussed in full. All questions have been answered, written consent has been obtained and patient agrees to proceed. Procedure: The patient was brought into the procedure area and placed in a left lateral decubitus position. Patient identity confirmed. Perioperative antibiotics confirmed. Safety pause time out performed. HERIBERTO was performed to dilate rectal sphincter Iodine 10cc with 60 cc gel was placed per rectum to reduce infection risk using a catheter tip syringe. 8 Hz Carmen rectal end-fire ultrasound probe was placed transrectally without difficulty. The prostate was visualized. Seminal vesicles were normal. Prostate margins were clearly demarcated. Bladder was seen superiorly. No cystic structures were noted Yes calcifications were noted at the surgical margin The prostate was otherwise heterogenous in nature The prostate was measured in 3 dimensions Prostatic Width: 6.6 cm Prostatic Height: 5.1 cm Urethral Length: 6.8 cm Total volume equals : 120 ml An ultrasound-guided pudendal nerve block was performed using a 22 gauge spinal needle in the sagittal plane. 4 cc of 1% lidocaine placed at the junction of each seminal vesicle and 2 cc placed at the apex of the prostate. A 12 core biopsy was performed with 6 cores each side using an 18 gauge prostate biopsy gun. Two cores each were taken at the prostate apex, mid and base on each side. Cores were spaced between lateral and medial aspects. Each core was examined as placed on specimen foam as part of quality assurance consultant to ensure a minimum 1 cm of length and minimal discontinuity. He tolerated the procedure well with minimal rectal bleeding. Blood pressure remained stable following procedure. He was able to ambulate to bathroom after 5 minutes. Printed instructions regarding antibiotic use and common adverse events from the procedure such as low-grade temperature, potential infection and bleeding were given. He understands to call the office or go to an emergency room should any of these events arise. Pathology: 12 core prostate biopsy. CPT code 81504: Transrectal ultrasound; this is a diagnostic test for evaluation of the prostate and surrounding structures, looking for abnormalities or suspicious areas worrisome for cancer CPT code 33979: Biopsy, prostate; needle or punch, single or multiple, any approach CPT code 57843: Ultrasonic guidance for needle placement (eg, biopsy, aspiration, injection, localization device), imaging supervision and interpretation
[2024-10-21] MEDS: Lidocaine HCl 1 % MPF 5 ML VIAL 10 ML SUBCUT (08:48)
[2024-10-21] MEDS: levoFLOXacin 500 MG TABLET PO (08:49)
== END 2024-10-21 07:44 | disposition home or self-care (01) ==
LOC: HO.US 07:43
PROVIDERS: PCP Internal Medicine Interventional Cardiology; Visit Provider Urology
DX: C61 Malignant neoplasm of prostate (principal); R97.20 Elevated prostate specific antigen [PSA]
CPT/HCPCS: 55700; 76942; 88305; J2003

== ENCOUNTER → 2024-10-21 07:43 | Outpatient (BNV) | payer MEDICARE, SELFPAY | PROVIDERS: PCP Internal Medicine Interventional Cardiology; Visit Provider Urology | DX: R97.20 Elevated prostate specific antigen [PSA] (principal) | CPT/HCPCS: 55700; 76872; 76942 ==

== ENCOUNTER 2024-10-29 12:05 | Outpatient (AMB) | payer MEDICARE, SELFPAY ==
--- NOTE | 2024-10-29 12:05 | A.OFFVIS_ITS ---
Intake Visit Reasons: Prostate Biopsy Results Intake Note: Patient is present for PROSTATE BIOPSY RESULTS Urology Medication:POTASSIUM CHLORIDE,FINASTERIDE,TERAZOSIN Antibiotic Allergy:NONE Blood Thinner:NONE English Drawer Required: No Allergies amitriptyline (AMITRIPTYLINE) Allergy (Unknown, Verified 10/29/24 12:07) UNKNOWN egg (EGGS) Allergy (Unknown, Verified 10/29/24 12:07) UNKNOWN influenza virus vaccine, specific (FLU VACCINE) Allergy (Unknown, Verified 10/29/24 12:07) UNKNOWN loratadine (From CLARITIN) Allergy (Unknown, Verified 10/29/24 12:07) UNKNOWN mometasone furoate (From ASMANEX TWISTHALER) Allergy (Unknown, Verified 10/29/24 12:07) UNKNOWN perphenazine (PERPHENAZINE) Allergy (Unknown, Verified 10/29/24 12:07) UNKNOWN Influenza Virus Vaccine Live Allergy (Unknown, Uncoded 10/29/24 12:07) Unknown ON LICENSE OF [facility] Medical History Nutritional deficiency TBI (traumatic brain injury) Vertigo GERD (gastroesophageal reflux disease) Depression Anemia Anxiety Tinnitus Hypertension COPD (chronic obstructive pulmonary disease) Bronchitis Asthma Social History Alcohol intake: never Advance Directives Date on File: 02/11/20 Coding
--- OUTSIDE RECORDS SUMMARY | 2024-10-29 12:45 | XMS_ITS | Clinical Summary ---
Author Organization [employer] Address [address] [place] [address] Care Team Providers Care Provider Education Specialist Name Role Phone Unavailable Primary Care [...] Description 10/15/2024 10:00 AM EDT Office Visit [facility] [address] [place], [place] [phone] Amira Slater Dental calculus (Primary Dx); Dental plaque 10/08/2024 8:30 AM EDT Office Visit [facility] [address] [place] [address] Reji Gomez DMD from Last [...]
--- OUTSIDE RECORDS SUMMARY | 2024-10-29 12:45 | XMS_ITS | Data Portability ---
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 Previously he had grade 4 polyps growing out of his nose. Now there are grade 3-4 polyps in the nose on the left with septal deviation to the right and grade 2+polyps on the right side. At this point the polyps are still significant. I would suggest continuing injections every 2 weeks and continuing daily fluticasone nasal spray. I will see him back in 6 months grayson Not available 08/18/2024 13:41:51 Plan of Treatment Reminders Order Date Submit Date Provider Last Modified By Organization Details Last Modified Time Details Appointments Establish ed 30 2024 01:00P M NATALI MCDERMOTT MD Not available Not [...] Details Recorded Time Polyp of nasal cavity 576424468 Active 2018 Polyp of nasal cavity ; Note: Date Diagno sed: 019 3:53 PM (J33.0 ) Not Available [facility] 4 02:15:31 Polyp of nasal sinus 91570732 Active 2018 Other polyp of sinus; Note: Date Diagno sed: 11/29/19 19 10:59 AM (J33.8 ) Not Available [facility] 4 02:14:07 Nasal congestion 58278984 Active 2018 Nasal conges tion; Note: Date Diagno sed: 019 3:53 PM (R09.8 1) Not Available [facility] 4 02:14:16 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 412995602 Active 2023 NATALI WILSON MD 100 [facility] [place], [place], [address] , [facility] - [facility] 4 13:31:08 Deviated nasal septum 511071697 Active 2023 NATALI WILSON MD 100 [facility],[place] [address], [place], [address] , [facility] - [facility] 4 13:31:12 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 Procedures Surgical History Date Name Laterality Status Provider Name and Address Organization Details Recorded Time 5 JMSNasal/Sinus Endoscopy completed NATALI LEE MD [address] [facility] [place] [place], [place], [address], [place] - [facility] 08/18/2024 13:41:30 4 JMSNasal/Sinus Endoscopy completed NATALI LEE MD [address] [place] [address], [address], [facility] 02/18/2024 13:31:02 Imaging Results None recorded. Procedure Notes None recorded. Medical Equipment None Reported. Allergies Allergen ID Allergen Name Allergen Category Reaction Reaction Severity Criticality Documentation Date Start Date Code Code System Note Provider Name and Address Organization Details Recorded Time 53912 Claritin medicatio n other Not available Not available 09/11/202379230 6 RxNorm React ion: unkno wn, unspe cifie d;; Not Available [facility] 4 00:48:26 79550 egg extract food,medi cation other Not available Not available 09/11/2023 24053 15 RxNorm React ion: unkno wn, unspe cifie d;; Not Available [facility] 4 00:48:35 93584 Dairy medicatio n other Not available Not available 09/11/2023 88993 UNK React ion: unkno wn, unspe cifie d;; Not Available [facility] 4 00:48:35 76450 Elavil medicatio n other Not available Not available 09/11/2023 24673 RxNorm React ion: unkno wn, unspe cifie d;; Not Available [facility] 4 00:48:41 82611 acetamino phen / oxycodone medicatio n other Not available Not available 09/11/2023 51507 3 RxNorm React ion: unkno wn, unspe cifie d;; Not Available [facility] 4 00:48:52 41246 Influenza medicatio n other Not available Not available 09/11/2023 73771 UNK React ion: unkno wn, unspe cifie d;; Not Available [facility] 4 00:48:52 67978 Triavil medicatio n other Not available Not available 09/11/2023 21243 UNK React ion: unkno wn, unspe cifie d;; Not Available [facility] 4 00:49:00 Medications Name Sig Start Date Stop Date Status Note LastModified by Organization Details LastModified Time amlodipine 2.5 mg tablet Take 1 tablet every day by oral route. active Not Available Not Available No t Available amlodipine 5 mg tablet active Medicatio n ID: [id number] Br and Name: amlodipin e Send Method: E-Prescri bed Subs Allowed: subs OK Medica tionGener icName: amlodipin e Not Available Not Available Not Available potassium chloride 20 mEq/15 mL oral liquid active Medicatio n ID: [id number] Br and Name: potassium chloride Send Method: E-Prescri bed Subs Allowed: subs OK Medica tionGener icName: potassium chloride Not Available Not Available Not Available ketorolac 0.5 % eye drops INSTILL 1 DROP INTO AFFECTED EYE(S) BY OPHTHALMI C ROUTE 4 TIMES PER DAY active Not Available Not Available No t Available Advair Diskus 250 mcg-50 mcg/dose powder for inhalation active Medicatio n ID: [id number] Br and Name: Advair Diskus Se nd Method: E-Prescri bed Subs Allowed: subs OK Medica tionGener icName: Advair Diskus Not Available Not Available Not Available docusate sodium 100 mg capsule 2018 active Medicatio n ID: [id number] Br and Name: docusate sodium Se nd Method: E-Prescri bed Subs Allowed: subs OK Medica tionGener icName: docusate sodium Not Available Not Available Not Available hydrochlor othiazide 25 mg tablet active Medicatio n ID: [id number] Br and Name: hydrochlo rothiazid e Send Method: E-Prescri bed Subs Allowed: subs OK Medica tionGener icName: hydrochlo rothiazid e Not Available Not Available Not Available triamcinol one acetonide 0.1 % lotion APPLY A THIN LAYER TO THE AFFECTED AREA(S) BY TOPICAL ROUTE 2 TIMES PER DAY active Not Available Not Available No t Available terazosin 10 mg capsule active Medicatio n ID: [id number] Br and Name: terazosin Send Method: E-Prescri bed Subs Allowed: subs OK Medica tionGener icName: terazosin Not Available Not Available Not Available finasterid e 5 mg tablet active Medicatio n ID: [id number] Br and Name: finasteri de Send Method: E-Prescri bed Subs Allowed: subs OK Medica tionGener icName: finasteri de Not Available Not Available Not Available bisacodyl 5 mg tablet Take 1 tablet every day by oral route. active Not Available Not Available No t Available tiotropium bromide 18 mcg capsule with inhalation device active Medicatio n ID: [id number] Br and Name: tiotropiu m bromide S end Method: E-Prescri bed Subs Allowed: subs OK Medica tionGener icName: tiotropiu m bromide Not Available Not Available Not Available chlorhexid ine gluconate 0.12 % mouthwash active Medicatio n ID: [id number] Br and Name: chlorhexi dine gluconate Send Method: E-Prescri bed Subs Allowed: subs OK Medica tionGener icName: chlorhexi dine gluconate Not Available Not Available Not Available cholecalci ferol (vitamin D3) 25 mcg (1,000 unit) tablet active Medicatio n ID: [id number] Br and Name: cholecalc iferol (vitamin D3) Send Method: E-Prescri bed Subs Allowed: subs OK Medica tionGener icName: cholecalc iferol (vitamin D3) Not Available Not Available Not Available Symbicort 160 mcg-4.5 mcg/actuat ion HFA aerosol inhaler 2018 active Medicatio n ID: [id number] Br and Name: Symbicort Send Method: E-Prescri bed Subs Allowed: subs OK Medica tionGener icName: Symbicort Not Available Not Available Not Available Nasal [place] (sodium chloride) 0.65 % aerosol active Medicatio n ID: [id number] Br and Name: Nasal [place] (sodium chloride) Send Method: E-Prescri bed Subs Allowed: subs OK Medica tionGener icName: Nasal [place] (sodium chloride) Not Available Not Available Not Available Flonase Allergy Relief 50 mcg/actuat ion nasal spray,susp ension active Medicatio n ID: [id number] Br and Name: Flonase Allergy Relief Se [...] Avai lable Vitals Date Recorded Body height Provider Name an d Address Organization Details Last Updated DateTime 08/18/2024 170.18 cm Yanira Buckner [place] - [facility] 08/18/2024 13:39:11 Date Recorded Body height Body mass index (BMI) Body weight Provider Name and Address Organization Details Last Updated DateTime 02/18/2024 170.18 cm 31.3 kg/m2 25226.47 g Yanira Buckner [place] - [facility] 02/18/2024 13:07:17 Social History None recorded. Functional Status None recorded. Mental Status None recorded. Family History Nothing Reported. Medical History Condition Response Nasal or Sinus Problems Y GERD/Reflux Y Dementia Y Hypertension Y Nasal polyps Y Asthma Y Past Encounters Encounter ID Performer Location Encounter Start Date Encounter Closed Date Diagnosis/Indication Diagnosis SNOMED-CT Code Diagnosis ICD10 Code Diagnosis Note [id number] NATALI WILSON MD [facility] [address] [address] 02/18/2024 12:50:09 02/18/2024 13:29:59 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 095259235 J33.9 Deviated nasal septum 12 8292576 J34.2 Hypereosin ophilic syndrome 373553580 D72.119 [id number] NATALI WILSON MD [facility] [address] [address] 08/18/2024 13:32:37 08/18/2024 13:52:01 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 673974968 J33.9 Deviated nasal septum 12 8254612 J34.2 Hypereosin ophilic syndrome 417672305 D72.119 Health Concerns Section Related Observation LastModified by Organization Detai ls LastModified Time None Recorded Concern Status LastModified by Organization Details LastModified Time None Recorded Advance Directives Directive None Recorded Payers Insurance Date Sequence Insurance Name Policy Number Policy Castrejon Covered Member ID Castrejon Member ID Guarantor Name 08/11/2024 1 MEDICARE [place]: [facility] Aravind Phelan [id number] Aravind Phelan Notes Date Note Type Note Provider Name and Address Organization Details Recorded Time 02/18/2024 text/html Hx of nasal poly ps and elevated eosinophils. Previously recommended Dupixent through [place] home[place] has a history of dementia, hypertension and asthma. He has been on Dupixent injections for several months. Notes improvement in his nasal breathing. Reports recent cataract surgery. NATALI LEE MD 100 [facility],[address], [address], [facility] 02/18/2024 13:32:00 08/18/2024 text/html Patient presentl y on Dupixent for nasal polyps. He feels his breathing is improved. Continues on fluticasone nasal spray. No CP or SOB NATALI LEE MD 100 [facility],[place] [address], [place], [address], [facility] 08/18/2024 13:42:10
--- NOTE | 2024-10-29 15:55 | A.OFFVIS_ITS ---
Intake Intake Visit Reasons: Prostate Biopsy Results Allergies amitriptyline (AMITRIPTYLINE) Allergy (Unknown, Verified 10/29/24 12:07) UNKNOWN egg (EGGS) Allergy (Unknown, Verified 10/29/24 12:07) UNKNOWN influenza virus vaccine, specific (FLU VACCINE) Allergy (Unknown, Verified 10/29/24 12:07) UNKNOWN loratadine (From CLARITIN) Allergy (Unknown, Verified 10/29/24 12:07) UNKNOWN mometasone furoate (From ASMANEX TWISTHALER) Allergy (Unknown, Verified 10/29/24 12:07) UNKNOWN perphenazine (PERPHENAZINE) Allergy (Unknown, Verified 10/29/24 12:07) UNKNOWN Influenza Virus Vaccine Live Allergy (Unknown, Uncoded 10/29/24 12:07) Unknown HPI HPI Comments History of Present Illness Details Aravind is a pleasant male. Resident of [employer]. He is seen for the following urologic conditions - lower urinary tract symptoms with prio r urinary retention - prostate cancer Follow-up prostate biopsy One core positive Low volume grade group 2 Recommend surveillance Myrbetriq has been very helpful with urinary urgency and frequency unless incontinence. 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 Initially seen [facility] Emergency Room January 2020 urinary retention No prior prostate medications Cystoscopy performed as enlarged prostate and catheter placed over a wire Current symptoms minimal, denies nocturia, weakness of stream or incomplete emptying PVR today 63cc Current therapy - maximum combination therapy with finasteride, terazosin PFSH Medical History Nutritional deficiency TBI (traumatic brain injury) Vertigo GERD (gastroesophageal reflux disease) Depression Anemia Anxiety Tinnitus Hypertension COPD (chronic obstructive pulmonary disease) Bronchitis Asthma Social History Alcohol intake: never Advance Directives Date on File: 02/11/20 Review of Systems Const Denies chills and Denies fever(s) Card Reports no additional complaints and Denies syncope Resp Denies cough GI Denies abdominal pain and Denies heartburn Reports as per HPI and Denies change in libido Neuro Denies syncope Psych Denies change in libido Endo Denies change in libido Physical Exam Const General: cooperative, healthy appearing, comfortable and no acute distress Orientation/consciousness: patient oriented x3 HEENT Face and sinus: Yes normal facial exam Mouth: moist mucous membranes Neck Neck: Yes normal visual inspection, Yes full ROM and Yes trachea midline Chest Chest palpation & inspection: normal inspection of the chest Resp Effort & Inspection: normal respiratory effort, able to speak in complete sentences and no respiratory distress GI Inspection: Yes normal to inspection Back/Spine/Pelvis Cervical Spine: normal cervical lordosis Thoracic/Lumbar Spine: thoracic and lumbar spine normal to inspection Skin General skin exam: no rashes or lesions noted Neuro General: patient oriented x3, gait normal, tone normal and moves all extremities Extrem General: Yes normal to inspection and Yes capillary refill normal Assessment & Plan Assessment & Plan (1) Hormone sensitive prostate cancer: Code(s): C61 - Malignant neoplasm of prostate; Z19.1 - Hormone sensitive malignancy status Plan Follow on surveillance Patient Instructions: This note is constructed using voice recognition software. While every effort has been made to ensure accuracy plodder operator errors may have been included. Imaging studies, laboratory and physical exam results were discussed and reviewed in detail. No major barriers to patient understanding were identified. An opportunity to ask questions regarding the treatment plan was provided. All questions were answered. The patient expressed understanding and agreement with the above treatment plan. The patient is aware they should contact our office by phone for worsening of their current condition or the appearance of new urologic symptoms. Compliance is encouraged with any medications and followup testing that is ordered. It is a privilege to participate in the urologic care of your patient. If you have any questions or concerns regarding treatment for the above conditions, or other urologic issues, please do not hesitate to contact me. The office telephone contact is [phone]. Sincerely, Dr Sai Iniguez MD, PATIENCE [facility] - Urology Compassionate Specialist Care for the Genitourinary System Coding Level of Care Code 11813-Gnkv Fac sub, high Diagnoses Hormone sensitive prostate cancer C61; Z19.1
== END 2024-10-29 16:27 | disposition home or self-care (01) ==
LOC: HO.HUSV 12:05
PROVIDERS: PCP Internal Medicine Interventional Cardiology; Visit Provider Urology
DX: C61 Malignant neoplasm of prostate (principal); Z19.1 Hormone sensitive malignancy status
CPT/HCPCS: 99310

== ENCOUNTER 2025-03-09 16:31 | Outpatient (REF) | payer MEDICARE, SELFPAY ==
[2025-03-09 17:04] LABS: Appearance Urine Turbid; Glucose Urine UA Negative (Negative); PH >= 9.0 (5.0-9.0); Specific Gravity - Urine 1.025 (1.005-1.025); UMIC TRIGGER UA YES
[2025-03-09 17:05] LABS: Other Crystals Urine Present
--- OUTSIDE RECORDS SUMMARY | 2025-03-09 18:03 | XMS_ITS | Clinical Summary ---
Author Organization [employer] Address [address] [facility] [address] [place] [address] Care Team Providers Care Manager Distribution Center Name Role Phone Unavailable Primary Care Provider Unavailabl e Allergies Active Allergy Reactions Criticality Noted Date Comments Amitriptyline 10/17/2013 Egg Protein-Containing Drug Products 10/17/2013 Gluten Meal 10/17/2013 Loratadine 10/17/2013 [...] Take by mouth. Act óscar Active Problems Problem Noted Date Diagnosed Date Abdominal aortic aneurysm 12/17/2024 Overview (12/17/2024): September 19, 2018 Entered By: MILES ALEJANDRA Comment: 05/16/11 - mid AAA 3.1 cm Allergic rhinitis 12/17/2024 Alzheimer's disease 12/17/2024 Benign prostatic hyperplasia without urinary obs truction 12/17/2024 Chronic obstructive pulmonary disease 12/17/2024 Concussion with moderate (1-24 hours) loss of co nsciousness 12/17/2024 Overview (12/17/2024): May 10, 2011 Entered By: SIMA GAMBOA Comment: 2 Concussions Encounter for fitting and ad justment of spectacles and contact lenses 12/17/2024 Gastroesophageal reflux disease 12/17/2024 Generalized anxiety disorder 12/17/2024 Overview (12/17/2024): May 10, 2011 Entered By: SIMA GAMBOA Comment: 1978: Admission for Depression to [facility] Jun 23, 2011 Entered By: UZIEL MENDOZA Comment: lifelong problems with excessive worry, tension, etc History of traumatic brain injury 12/17/2024 Hyperlipidemia 12/17/2024 Impulse control disorder 12/17/2024 Overview (12/17/2024): Jun 29, 2011 Entered By: MILES BARCLAY Comment: R/o early Dementia Jul 20, 2011 Entered By: SIMA GAMBOA Comment: 05-12 to 3 [facility] W4U Ocular hypertension, bilateral 12/17/2024 Presence of intraocular lens 12/17/2024 Syncope and collapse 12/17/2024 Tinnitus 12/17/2024 Torticollis 12/17/2024 Overview (12/17/2024): May 10, 2011 Entered By: SIMA GAMBOA Comment: 80` towards the left May 10, 2011 Entered By: SIMA GAMBOA Comment: rt shoulder lower than left Femoral neck fracture 03/13/2013 Overview (12/17/2024): Feb 04, 2015 Entered By: PATRICIA COCHRAN Comment: s/p left hip hemiarthroplasty Bilateral hearing loss 04/30/2008 Hypertension 04/30/2007 Encounters Date Type Department Care Team Description 02/04/2025 10:00 AM EDT Office Visit [facility] [address] [place] [id number] Reji Gomez DMD 01/21/2025 8:15 AM EDT Office Visit [facility] [address] [place] [address] Lucio Slatersa Dental plaque (Primary Dx); Dental calculus 12/17/2024 8:00 AM EDT Office Visit [facility] [address] [place], [place] [id number] DickReji gary DMD from Last 3 Months Social History [...] 10/15/2023 10/14/2013, 06/06/2012 COVID-19 Vaccine ( season) 2024 02/13/2023, 10/04/2022, 01/12/2022, Additional history exists Influenza Vaccine (#1) 2024 , 01/31/2023, 02/01/2022, Additional history exists Dental Prophylaxis 07/22/2025 01/21/2025, 0 10/15/2024, 07/17/2024, Additional history exists Dental X-Ray: Full Mouth 08/03/2025 08/02/2022 Dental Oral Exam 08/06/2025 02/04/2025, 02/2025, 03/05/2024, Additional history exists Tobacco Screening 02/04/2026 02/04/2025 Zoster Vaccines Completed 09/27/2021, 07/12/2021 Pneumococcal Vaccine: 50+ Years Completed 02/09/2022 RSV Patients and Patients Aged 60 years or older Completed 03/15/2023 HIB Vaccines Aged Out No longer eligi [...] Procedure Name Priority Date/Time Associated Diagnosis Comments PERIODIC ORAL EVALUATION - ESTABLISHED PATIENT Routine 02/04/2025 10:00 AM EDT ORAL HYGIENE INSTRUCTIONS Routine 01/21/2025 8:15 AM EDT Dental plaque Dental calculus PROPHYLAXIS - ADULT Routine 01/21/2025 8 :15 AM EDT Dental plaque Dental calculus TOPICAL APPLICATION OF FLUORIDE VARNISH Routine 01/21/2025 8:15 AM EDT 10 MIFL RESIN-BASED COMPOSITE - 4 OR MORE SURFACES (ANTERIOR) Routine 12/17/2024 8:00 AM EDT 9 MIFL RESIN-BASED COMPOSITE - 4 OR MORE SURFACES (ANTERIOR) Routine 12/17/2024 8:00 AM EDT 8 MIFL RESIN-BASED COMPOSITE - 4 OR MORE SURFACES (ANTERIOR) Routine 12/17/2024 8:00 AM EDT INTRAORAL - COMPLETE SERIES OF RADIOGRAPHIC IMAGES Routine 08/02/2022 8:00 AM EDT from Last 3 Months or Most Recently Relevant to Health Maintenance
--- OUTSIDE RECORDS SUMMARY | 2025-03-09 18:03 | XMS_ITS | Continuity of Care Document ---
Author Organization [place] - [facility], [facility] Address [address] [place] [address] Care Team Providers Care Taxi Driver Name Role Phone FREDERICK LAMBERT Primary Care Provider Assessment Encounter Date Assessment Date Assessment LastModified by Organization Details LastModified Time 02/18/2025 02/18/2025 Aravind Phelan is a 79-year-old male with stable grade two nasal polyps. The patient will continue DUPIXENT injections and fluticasone for management of nasal polyps. The polyps are stable and contained. No additional interventions are required at this time. FOLLOW-UP: The patient is advised to return for follow-up in one year. Patient appears to be benefiting from Dupixent injections. Previously he had grade 4 polyps growing out of his nose. Now there are grade 2 polyps in the nose on the left with septal deviation to the right and grade 2+polyps on the right side. At this point the polyps are still significant but much improved. I would suggest continuing injections every 2 weeks and continuing daily fluticasone nasal spray. I will see him back in 12months grayson Not available 02/18/2025 13:30:48 Plan of Treatment Reminders Order Date Submit Date Provider Last Modified By Organization Details Last Modified Time Details Appointments None record ed. Lab None record ed. Referral None record ed. Procedures None record ed. Surgeries None record ed. Imaging None record ed. Medication Orders None record ed. Patient TargetsNo targets recorded. Patient Instructions Encounter Date Encounter Id Patient Instructions Last Modified By Organization Details Last Modified Time 02/18/2025 [id number] The patient is advised to return for follow-up in one year. ironreibstein Not available 02/18/2025 13:29:05 Please note: Parts of this encounter note have been generated by AI based on audio conversation. Patient consent was required prior to utilizing this technology. Content review was required prior to finalizing the note. grayson Not available 02/18/2025 13:29:05 Reason for Referral None Reported. Problems Name Problem SNOMED Code Status Onset Date Resolution Date Notes Provider Name and Address Organization Details Recorded Time Polyp of nasal cavity 806796458 Active 2018 Polyp of nasal cavity ; Note: Date Diagno sed: 019 3:53 PM (J33.0 ) Not Available [facility] 4 02:15:31 Nasal congestion 56040500 Active 2018 Nasal conges tion; Note: Date Diagno sed: 019 3:53 PM (R09.8 1) Not Available [facility] 4 02:14:16 Polyp of nasal sinus 14136747 Active 2018 Other polyp of sinus; Note: Date Diagno sed: 11/29/19 19 10:59 AM (J33.8 ) Not Available [facility] 4 02:14:07 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 456061813 Active 2023 NATALI WILSON MD [address] [place], [place] [address], [address] , [facility] 4 13:31:08 Deviated nasal septum 117773645 Active 2023 NATALI WILSON MD [address] [place], [place] [address], [address] , [facility] 4 13:31:12 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 Procedures Surgical History Date Name Laterality Status Provider Name and Address Organization Details Recorded Time 02/19/20 25 JMSNasal/Sinus Endoscopy completed NATALI LEE MD [address], [place], [address], [place] - [facility] 02/18/2025 13:30:13 08/19/19 25 JMSNasal/Sinus Endoscopy completed NATALI LEE MD [address], [place], [address], [place] [facility] 08/18/2024 13:41:30 02/18/20 24 JMSNasal/Sinus Endoscopy completed NATALI LEE MD [address] [facility], [place], [address], [place] [facility] 02/18/2024 13:31:02 total replacement of hip completed Eli Contreras [place] - [facility] 02/18/2025 13:13:46 Imaging Results None recorded. Procedure Notes None recorded. Medical Equipment None Reported. Allergies Allergen ID Allergen Name Allergen Category Reaction Reaction Severity Criticality Documentation Date Start Date Code Code System Note Provider Name and Address Organization Details Recorded Time 25283 Claritin medicatio n other Not available Not available 09/11/2023 85932 6 RxNorm React ion: unkno wn, unspe cifie d;; Not Available [facility] 4 00:48:26 54037 egg extract food,medi cation other Not available Not available 09/11/2023 44690 15 RxNorm React ion: unkno wn, unspe cifie d;; Not Available [facility] 4 00:48:35 25356 Dairy medicatio n other Not available Not available 09/11/2023 React ion: unkno wn, unspe cifie d;; Not Available [facility] 4 00:48:35 31398 Elavil medicatio n other Not available Not available 09/11/2023 07743 RxNorm React ion: unkno wn, unspe cifie d;; Not Available [facility] 4 00:48:41 41350 acetamino phen / oxycodone medicatio n other Not available Not available 09/11/2023 67798 3 RxNorm React ion: unkno wn, unspe cifie d;; Not Available [facility] 4 00:48:52 89781 Influenza medicatio n other Not available Not available 09/11/2023 React ion: unkno wn, unspe cifie d;; Not Available [facility] 4 00:48:52 05511 Triavil medicatio n other Not available Not available 09/11/2023 React ion: unkno wn, unspe cifie d;; Not Available [facility] 4 00:49:00 Medications Name Sig Start Date Stop Date Status Note LastModified by Organization Details LastModified Time amlodipin e 2.5 mg tablet Take 1 tablet every day by oral route. 02/18 completed Not Available Not Available Not Available amlodipin e 5 mg tablet active Medicati on ID: [id number] B rand Name: amlodipi ne Send Method: E-Prescr ibed Sub s Allowed: subs OK Medic ationGen ericName : amlodipi ne Not Available Not Available Not Available potassium chloride 20 mEq/15 mL oral liquid active Medicati on ID: [id number] B rand Name: potassiu m chloride Send Method: E-Prescr ibed Sub s Allowed: subs OK Medic ationGen ericName : potassiu m chloride Not Available Not Available Not Available ketorolac 0.5 % eye drops INSTILL 1 DROP INTO AFFECTED EYE(S) BY OPHTHALM IC ROUTE 4 TIMES PER DAY 02/18 completed Not Available Not Available Not Available Advair Diskus 250 mcg-50 mcg/dose powder for inhalatio n active Medicati on ID: [id number] B rand Name: Advair Diskus S end Method: E-Prescr ibed Sub s Allowed: subs OK Medic ationGen ericName : Advair Diskus Not Available Not Available Not Available docusate sodium 100 mg capsule 2018 active Medicati on ID: [id number] B rand Name: docusate sodium S end Method: E-Prescr ibed Sub s Allowed: subs OK Medic ationGen ericName : docusate sodium Not Available Not Available Not Available hydrochlo rothiazid e 25 mg tablet active Medicati on ID: 403970 B rand Name: hydrochl orothiaz zak Send Method: E-Prescr ibed Sub s Allowed: subs OK Medic ationGen ericName : hydrochl orothiaz zak Not Available Not Available Not Available triamcino lone acetonide 0.1 % lotion APPLY A THIN LAYER TO THE AFFECTED AREA(S) BY TOPICAL ROUTE 2 TIMES PER DAY active Not Available Not Available No t Available terazosin 10 mg capsule active Medicati on ID: [id number] B rand Name: terazosi n Send Method: E-Prescr ibed Sub s Allowed: subs OK Medic ationGen ericName : terazosi n Not Available Not Available Not Available finasteri de 5 mg tablet active Medicati on ID: [id number] B rand Name: finaster zak Send Method: E-Prescr ibed Sub s Allowed: subs OK Medic ationGen ericName : finaster zak Not Available Not Available Not Available bisacodyl 5 mg tablet Take 1 tablet every day by oral route. active Not Available Not Available No t Available tiotropiu m bromide 18 mcg capsule with inhalatio n device active Medicati on ID: [id number] B rand Name: tiotropi um bromide Send Method: E-Prescr ibed Sub s Allowed: subs OK Medic ationGen ericName : tiotropi um bromide Not Available Not Available Not Available chlorhexi dine gluconate 0.12 % mouthwash active Medicati on ID: [id number] B rand Name: chlorhex idine gluconat e Send Method: E-Prescr ibed Sub s Allowed: subs OK Medic ationGen ericName : chlorhex idine gluconat e Not Available Not Available Not Available cholecalc iferol (vitamin D3) 25 mcg (1,000 unit) tablet active Medicati on ID: [id number] B rand Name: cholecal ciferol (vitamin D3) Send Method: E-Prescr ibed Sub s Allowed: subs OK Medic ationGen ericName : cholecal ciferol (vitamin D3) Not Available Not Available Not Available Symbicort 160 mcg-4.5 mcg/actua tion HFA aerosol inhaler 02/18 completed Medicati on ID: [id number] B rand Name: Symbicor t Send Method: E-Prescr ibed Sub s Allowed: subs OK Medic ationGen ericName : Symbicor t Not Available Not Available Not Available Nasal [place] (sodium chloride) 0.65 % aerosol active Medicati on ID: [id number] B rand Name: Nasal [place] (sodium chloride ) Send Method: E-Prescr ibed Sub s Allowed: subs OK Medic ationGen ericName : Nasal [place] (sodium chloride ) Not Available Not Available Not Available Flonase Allergy Relief 50 mcg/actua tion nasal spray,xavier pension active Medicati on ID: [id number] B rand Name: Flonase Allergy Relief S end Method: E-Prescr ibed Sub s Allowed: subs OK Medic ationGen ericName : Flonase Allergy Relief Not Available Not Available Not Available tiotropiu m bromide 1.25 mcg/actua tion mist for inhalatio n Inhale 2 puffs every day by inhalati on route. 02/18 completed Not Available Not Available Not Available Dupixent 300 mg/2 mL subcutane ous syringe inject 300MG (1 injectio n) subcutan eously every other week. 2023 active Not Available Not Available Not Avai lable Vitals None Recorded Social History None recorded. Functional Status None recorded. Mental Status None recorded. Family History Nothing Reported. Medical History Condition Response Nasal or Sinus Problems Y GERD/Reflux Y Dementia Y Hypertension Y Nasal polyps Y Asthma Y Past Encounters Encounter ID Performer Location Encounter Start Date Encounter Closed Date Diagnosis/Indication Diagnosis SNOMED-CT Code Diagnosis ICD10 Code Diagnosis IMO Codes Diagnosis Note [id number] NATALI WILSON MD [facility] of [address] [address] 02/18/2025 12:48:46 02/18/2025 13:29:07 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 586081999 J33.9 Deviated nasal septum 12 0544123 J34.2 Hypereosin ophilic syndrome 556337352 D72.119 Health Concerns Section Related Observation LastModified by Organization Detlaurel leigh LastModified Time None Recorded Concern Status LastModified by Organization Details LastModified Time None Recorded Payers Encounter Date Sequence Insurance Name Policy Number Policy Castrejon Covered Member ID Castrejon Member ID Guarantor Name 02/18/2025 1 MEDICARE -[place]: [employer] Aravind Phelan [id number] 5 Aravind Phelan Notes Date Note Type Note Provider Name and Address Organization Details Recorded Time 02/18/2025 text/html Aravind Phelan is a 79-year-old male who presents for a follow-up evaluation of nasal polyps. The patient reports that he is still receiving DUPIXENT injections for the treatment of nasal polyps. He states that his breathing and sense of smell are good. Continues on nasal NATALI LEE MD [address] [place] [address], [place], [address], [facility] 02/18/2025 13:31:04
--- OUTSIDE RECORDS SUMMARY | 2025-03-09 18:03 | XMS_ITS | Encounter Summary ---
Author Organization [employer] Address [address] [facility] [address] [place] [address] Care Team Providers Care Shorthand Teacher Name Role Phone Unavailable Primary Care Provider Unavailabl e Encounter Details Date Type Department Care Team (Late st Contact Info) Description 05/24/2023 Abstract [facility] [address] [place] [address] Reji Gomez, DMD [address] [place] [address] Social History Tobacco Use Types Packs/Day Years [...]
--- OUTSIDE RECORDS SUMMARY | 2025-03-09 18:03 | XMS_ITS | Data Portability ---
Author Organization [place] - [facility], Allergy Address [address] [address] Care Team Providers Care Tube Puller Name Role Phone FREDERICK LAMBERT Primary Care Provider [phone] Assessment Encounter Date Assessment Date Assessment LastModified [...] 6 months grayson Not available 08/18/2024 13:41:51 02/18/2025 02/18/2025 Aravind Phelan is a 79-year-old [...] By Organization Details Last Modified Time 02/18/2025 [id number] The patient is advised to return for follow-up in one year. grayson Not available 02/18/2025 13:29:05 Please note: Parts [...] Details Recorded Time Polyp of nasal cavity 742429440 Active 2018 Polyp of nasal cavity ; Note: Date Diagno sed: 019 3:53 PM (J33.0 ) Not Available [facility] 4 02:15:31 Nasal congestion 87048903 Active 2018 Nasal conges tion; Note: Date Diagno sed: 019 3:53 PM (R09.8 1) Not Available [facility] 4 02:14:16 Polyp of nasal sinus 72364699 Active 2018 Other polyp of sinus; Note: Date Diagno sed: 11/29/19 19 10:59 AM (J33.8 ) Not Available [facility] 4 02:14:07 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 841674046 Active 2023 NATALI WILSON MD [address] [facility] [place] [address], [place], [address] , [place] - [facility] 13:31:08 Deviated nasal septum 023696756 Active 2023 NATALI WILSON MD [address] [facility],[place] [address], [place], [address] , [place] [facility] 13:31:12 Hypereosinoph ilic syndrome 618037717 Active 2023 NATALI WILSON MD [address] [facility],[place] [address], [place], [address] , [place] - [facility] 13:31:18 Problem Notes None recorded. Procedures Surgical History Date Name Laterality Status Provider Name and Address Organization Details Recorded Time 02/19/20 25 JMSNasal/Sinus Endoscopy completed NATALI ELE MD [address] [place] [address],[address], [address], [facility] - [facility] 02/18/2025 13:30:13 08/19/19 25 JMSNasal/Sinus Endoscopy completed NATALI LEE MD [address] [place] [address],[address], [address], [place] [facility] 08/18/2024 13:41:30 02/18/20 24 JMSNasal/Sinus Endoscopy completed NATALI LEE MD [address] [place] [address],[address], [address], [place] [facility] 02/18/2024 13:31:02 total replacement of hip completed Eli Contreras [place] - [facility] 02/18/2025 13:13:46 Imaging Results None recorded. Procedure Notes None recorded. Medical Equipment None Reported. Allergies Allergen ID Allergen Name Allergen Category Reaction Reaction Severity Criticality Documentation Date Start Date Code Code System Note Provider Name and Address Organization Details Recorded Time 10391 Claritin medicatio n other Not available Not available 09/11/202316164 6 RxNorm React ion: unkno wn, unspe cifie d;; Not Available [facility] 4 00:48:26 64322 egg extract food,medi cation other Not available Not available 09/11/2023 53189 15 RxNorm React ion: unkno wn, unspe cifie d;; Not Available [facility] 4 00:48:35 16752 Dairy medicatio n other Not available Not available 09/11/2023 React ion: unkno wn, unspe cifie d;; Not Available [facility] 4 00:48:35 68164 Elavil medicatio n other Not available Not available 09/11/2023 85982 RxNorm React ion: unkno wn, unspe cifie d;; Not Available [facility] 4 00:48:41 58322 acetamino phen / oxycodone medicatio n other Not available Not available 09/11/2023 13311 3 RxNorm React ion: unkno wn, unspe cifie d;; Not Available [facility] 4 00:48:52 70606 Influenza medicatio n other Not available Not available 09/11/2023 React ion: unkno wn, unspe cifie d;; Not Available [facility] 4 00:48:52 69610 Triavil medicatio n other Not available Not available 09/11/2023 React ion: unkno wn, unspe cifie d;; Not Available [facility] 4 00:49:00 Medications Name Sig Start Date Stop Date Status Note LastModified by Organization Details LastModified Time amlodipin e 2.5 mg tablet Take 1 tablet every day by oral route. 02/18 completed Not Available Not Available Not Available amlodipin e 5 mg tablet active Medicati on ID: [id number] B rand Name: amlodipi ne Send Method: E-Prescr ibed Sub s Allowed: subs OK Medic ationGen ericName : amlodipi ne Not Available Not Available Not Available potassium chloride 20 mEq/15 mL oral liquid active Medicati on ID: [id number] B rand Name: ieshaanel m chloride Send Method: E-Prescr ibed Sub [...] for inhalatio n active Medicati on ID: 000119 B rand Name: Advair Diskus S end Method: E-Prescr ibed Sub s Allowed: subs OK Medic ationGen ericName : Advair Diskus Not Available Not Available Not Available docusate sodium 100 mg capsule 2018 active Medicati on ID: 798078 B rand Name: docusate sodium S end Method: E-Prescr ibed Sub s Allowed: subs OK Medic ationGen ericName : docusate sodium Not Available Not Available Not Available hydrochlo rothiazid e 25 mg tablet active Medicati on ID: 693686 B rand Name: hydrochl orothiaz zak Send [...] 10 mg capsule active Medicati on ID: [id number] B rand Name: terazosi n Send Method: E-Prescr ibed Sub s Allowed: subs OK Medic ationGen ericName : terazosi n Not Available Not Available Not Available finasteri de 5 mg tablet active Medicati on ID: 946773 B rand Name: finaster zak Send Method: E-Prescr ibed Sub s Allowed: subs OK Medic ationGen ericName : finaster zak Not Available Not Available Not Available bisacodyl 5 mg tablet Take 1 tablet every day by oral route. active Not Available Not Available No t Available tiotropiu m bromide 18 mcg capsule with inhalatio n device active Medicati on ID: 604329 B rand Name: tiotropi um bromide Send Method: E-Prescr ibed Sub s Allowed: subs OK Medic ationGen ericName : tiotropi um bromide Not Available Not Available Not Available chlorhexi dine gluconate 0.12 % mouthwash active Medicati on ID: 256041 B rand Name: chlorhex idine gluconat e Send Method: E-Prescr ibed Sub s Allowed: subs OK Medic ationGen ericName : chlorhex idine gluconat e Not Available Not Available Not Available cholecalc iferol (vitamin D3) 25 mcg (1,000 unit) tablet active Medicati on ID: 704735 B rand Name: cholecal ciferol (vitamin D3) Send Method: E-Prescr ibed Sub s Allowed: subs OK Medic ationGen ericName : cholecal ciferol (vitamin D3) Not Available Not Available Not Available Symbicort 160 mcg-4.5 mcg/actua tion HFA aerosol inhaler 02/18 completed Medicati on ID: [id number] B rand Name: Symbicor t Send Method: E-Prescr ibed Sub s Allowed: subs OK Medic ationGen ericName : Symbicor t Not Available Not Available Not Available Nasal [place] (sodium chloride) 0.65 % aerosol active Medicati on ID: [id number] B rand Name: Nasal [place] (sodium chloride ) Send Method: E-Prescr ibed Sub s Allowed: subs OK Medic ationGen ericName : Nasal [place] (sodium chloride ) Not Available Not Available Not Available Flonase Allergy Relief 50 mcg/actua tion nasal spray,xavier pension active Medicati on ID: [id number] B rand Name: Flonase Allergy Relief S [...] [place] [facility] 08/18/2024 13:39:11 Date Recorded Body height Body mass index (BMI) Body weight Provider Name and Address Organization Details Last Updated DateTime 02/18/2024 170.18 cm 31.3 kg/m2 45886.47 g Yanira Buckner [place] - [facility] 02/18/2024 13:07:17 Social History None recorded. Functional Status None recorded. Mental Status None recorded. Family History Nothing Reported. Medical History Condition Response Nasal or Sinus Problems Y GERD/Reflux Y Dementia Y Hypertension Y Nasal polyps Y Asthma Y Past Encounters Encounter ID Performer Location Encounter Start Date Encounter Closed Date Diagnosis/Indication Diagnosis SNOMED-CT Code Diagnosis ICD10 Code Diagnosis IMO Codes Diagnosis Note [id number] NATALI WILSON MD [facility] of [address] [address] 02/18/2024 12:50:09 02/18/2024 13:29:59 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 961120777 J33.9 Deviated nasal septum 12 9969060 J34.2 Hypereosin ophilic syndrome 084853075 D72.119 [id number] NATALI WILSON MD [facility] of [address] [address] 08/18/2024 13:32:37 08/18/2024 13:52:01 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 347304299 J33.9 Deviated nasal septum 12 7416950 J34.2 Hypereosin ophilic syndrome 945053587 D72.119 [id number] NATALI WILSON MD [facility] of [address] [address] 02/18/2025 12:48:46 02/18/2025 13:29:07 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 077922735 J33.9 Deviated nasal septum 12 6885031 J34.2 Hypereosin ophilic syndrome 745080541 D72.119 Health Concerns Section Related Observation LastModified by Organization Detai ls LastModified Time None Recorded Concern Status LastModified by Organization Details LastModified Time None Recorded Advance Directives Directive None Recorded Payers Insurance Date Sequence Insurance Name Policy Number Policy Castrejon Covered Member ID Castrejon Member ID Guarantor Name 02/24/2025 1 MEDICARE B-[place]: [employer] Aravind Phelan [id number] 5 Aravind Phelan Notes Date Note Type Note Provider Name and Address Organization Details Recorded Time 02/18/2024 text/html ROS as noted in the HPI Hx of nasal polyps and elevated eosinophils. Previously recommended Dupixent through [facility]'s homeHe has a history of dementia, hypertension and asthma. He has been on Dupixent injections for several months. Notes improvement in his nasal breathing. Reports recent cataract surgery. NATALI LEE MD [address] [facility],[address], [address], [facility] - [facility] 02/18/2024 13:32:00 08/18/2024 text/html Patient presently on Dupixent for nasal polyps. He feels his breathing is improved. Continues on fluticasone nasal spray. No CP or SOB NATALI LEE MD [address] [facility] [place],[address], [address], [facility] - [facility] 08/18/2024 13:42:10 02/18/2025 text/html Aravind Phelan is a 79-year-old male who presents for a follow-up evaluation of nasal polyps. The patient reports that he is still receiving DUPIXENT injections for the treatment of nasal polyps. He states that his breathing and sense of smell are good. Continues on FP nasal NATALI LEE MD [address] [facility],[address], [address], [facility] 02/18/2025 13:31:04
--- OUTSIDE RECORDS SUMMARY | 2025-03-09 18:03 | XMS_ITS | Encounter Summary ---
Author Organization [employer] Address [address] [facility] [address] [place] [address] Care Team Providers Care Bmet Name Role Phone Unavailable Primary Care Provider Unavailabl e Encounter Details Date Type Department Care Team (Late st Contact Info) Description 05/24/2023 Abstract [facility] [address] [place] [address] Reji Gomez, DMD [address] [place] [address] Social History Tobacco Use Types Packs/Day Years [...]
--- OUTSIDE RECORDS SUMMARY | 2025-03-09 18:03 | XMS_ITS | Encounter Summary ---
Author Organization [employer] Address [address] [facility] 7t [place] [address] Care Team Providers Care Radio Program Director Name Role Phone Unavailable Primary Care Provider Unavailabl e Encounter Details Date Type Department Care Team (Late st Contact Info) Description 05/24/2023 Abstract [facility] [address] [place] [address] Reji Gomez, DMD [address] [place] [address] Social History Tobacco Use Types Packs/Day Years [...]
== END 2025-03-09 16:32 | disposition home or self-care (01) ==
LOC: HO.HSH2N 16:31
PROVIDERS: Visit Provider Internal Medicine Interventional Cardiology
DX: R41.82 Altered mental status, unspecified (principal)
CPT/HCPCS: 81001; 81003; 87086; 87088; 87186

== ENCOUNTER 2025-03-10 06:02 | Outpatient (REF) | payer MEDICARE, SELFPAY ==
--- OUTSIDE RECORDS SUMMARY | 2024-08-12 05:00 | XMS_ITS ---
Author Name [facility] Organization [facility] Address [address] [place] [id number] Care Team Providers Care Quality Technician Name Role Phone YAMILET ALEJANDRAA Primary Care Provider Wilton mckeon Insurance Providers: All historical and current Section Date Range: From patient's date of to the date document was created. This section includes the names of all active insurance providers for the patient. Insurance Provider Type of Coverage Plan Name Start of Policy Coverage End of Policy Coverage Group Number Member ID Insurance Provider's Telephone Number Policy Castrejon's Name Patient's Relationship to Policy Castrejon MEDICARE (WNR) MEDICARE (M) PART A May 31, 2012 PART A [id number] ALAS,DA VID PATIENT MEDICARE (WNR) MEDICARE (M) PART B May 31, 2012 PART B [id number] ALAS,DA VID PATIENT MEDICARE (WNR) MEDICARE (M) PART A May 31, 2012 PART A [id number] ALAS,DA VID PATIENT MEDICARE (WNR) MEDICARE (M) PART B May 31, 2012 PART B [id number] ALAS,FATUMA MUNIZD PATIENT Selected Encounter This section includes the information on record at [place] for the Encounter. Date/Time Encounter Type Encounter Description Reason Provider Source Aug 12, 2024 10:00 AM OFFICE O/P EST MOD 30 MIN OPTOMETRY ICD-10-CM Z96.1 Presence of intraocular lens CECI MARIONE Encounter Template Text not used by [place] Assessments - Encounter Diagnoses This section includes the primary and secondary diagnoses documented for the Encounter. Date/Time Primary/Secondary Diagnosis Diagnosis Name Provider Source Aug 13, 2024 07:06 AM PRIMARY Presence of intraocular lens [facility] [place] [facility] Aug 13, 2024 07:06 AM SECONDARY Oth disorders of optic nerve, NEC, right eye [facility] Aug 13, 2024 07:06 AM SECONDARY Personal history of traumatic brain injury [facility]I [facility] Aug 13, 2024 07:06 AM SECONDARY Puckering of macula, bilateral [facility] Social History: Smoking Status (Most current) and Tobacco Use (All prior to encounter date) This section includes the most current, and the historical, smoking and tobacco- related health factors from the VA facility where the Encounter took place. Current Smoking Status This section includes the most current smoking, or tobacco-related health factor, from the VA facility where the Encounter took place. Date/Time Current Smoking Status Comment Facility Aug 27, 2007 09:29 AM QUIT TOBACCO USE > 7 YEARS AGO quit 40 years ago [facility] Advance Directives: All historical and current Section Date Range: From patient's date of to the date document was created. This section includes ALL of a patient's completed or amended [place] Advance and Rescinded Directives. The entries below indicate that a directive exists for the patient, but an actual copy is not included with this document. The data comes from all [place] facilities. Date Advance Directives Provider Source May 26, 2011 ADVANCE DIRECTIVE ZORAIDA SEGOVIA [facility] May 18, 2011 ADVANCE DIRECTIVE MEGHAN RODRIGUEZ [facility] Encounter Notes: All associated encounter notes This section contains the clinical notes associated to the Encounter. Date/Time Encounter Note(s) Provider Source Aug 12, 2024 10:07 AM OPTOMETRY NOTE: LOCAL TITLE: OPTOMETRY NOTE STANDARD TITLE: OPTOMETRY NOTE DATE OF NOTE: AUG 12, 2024@10:07 ENTRY DATE: AUG 12, 2024@10:08:10 AUTHOR: GINA BARRAZA EXP COSIGNER: MAICOL MARION URGENCY: STATUS: COMPLETED OPTOMETRY NOTE Has ADDENDA Active problems - Computerized Problem List is the source for the followin. Gastroesophageal reflux disease 2. Primary Care Physician 3. Gastroesophageal reflux disease 4. Tinnitus 5. Benign prostatic hypertrophy without outflow obstruction 6. Femoral neck fracture 7. Alzheimer's disease 8. Syncope and collapse 9. Allergic rhinitis 10. Chronic obstructive pulmonary disease 11. Hyperlipidemia 12. Impulse-Control Disorder NOS 13. History of traumatic brain injury 14. Abdominal aortic aneurysm 15. Concussion with moderate loss of consciousness 16. Torticollis 17. Colonoscopy Screening 18. Generalized anxiety disorder 19. Bilateral hearing loss 20. Hypertension Active Outpatient Medications (including Supplies): Active Non-VA Medications Status 1) Non-VA ACETAMINOPHEN 325MG TAB 650MG BY MOUTH EVERY 6 HOURS ACTIVE NEEDED 2) Non-VA ALBUTEROL SO4 0.083% INHL 3ML 1 AMPULE IN NEBULIZER ACTIVE EVERY 4 HOURS NEEDED 3) Non-VA AMLODIPINE BESYLATE 5MG TAB 5MG BY MOUTH ONCE DAILY ACTIVE 4) Non-VA BISACODYL 10MG RTL SUPP 1 SUPPOSITORY(IES) RECTALLY ACTIVE NEEDED 5) Non-VA BUDESONIDE 160/FORMOTER 4.5MCG 120D INH 2 PUFFS BY ACTIVE MOUTH TWICE DAILY 6) Non-VA DOCUSATE NA 100MG CAP 100MG BY MOUTH TWICE DAILY ACTIVE 7) Non-VA DUPILUMAB (DUPIXENT SYRINGE) INJ,SOLN SUBCUTANEOUSLY ACTIVE Indication: UNKNOWN 8) Non-VA FINASTERIDE 5MG TABLET TAB BY MOUTH ACTIVE Indication: UNKNOWN 9) Non-VA FLUTICASONE PROP 50MCG 120D NASAL INHL 1 SPRAY INTO ACTIVE EACH NOSTRIL TWICE DAILY 10) Non-VA HYDROCHLOROTHIAZIDE TAB BY MOUTH ACTIVE Indication: UNKNOWN 11) Non-VA LORAZEPAM 0.5MG TAB 0.5MG BY MOUTH TWICE DAILY ACTIVE NEEDED 12) Non-VA MILK OF MAGNESIA 30ML (2 TABLESPOONS) BY MOUTH ONCE ACTIVE DAILY NEEDED 13) Non-VA POTASSIUM CHLORIDE 10MEQ EXT REL TAB,SA BY MOUTH ACTIVE Indication: FOR LOW POTASSIUM 14) Non-VA TERAZOSIN HCL CAP,ORAL BY MOUTH ACTIVE Indication: UNKNOWN 15) Non-VA TIOTROPIUM 18MCG INHL CAP 30 1 CAPSULE (2 ACTIVE INHALATIONS) IN INHALER BY MOUTH ONCE DAILY Allergies: INFLUENZA VACCINE, ELAVIL, EGGS, ASMANEX TWISTHALER, CLARITIN, PERPHENAZINE DAIRY FOODS All medications including those prescribed by outside VA's, community providers, and all OTC meds were reviewed and reconciled with patient to the best of their abilities. This 79 year old MALE is seen today for comprehensive eye exam SHAILA: JUNE 2023 Chief Complaint: pt repots he has cataract surgery about 1-2 weeks ago, both eyes were done, reports good vision at distance and near since surgery. OHx: 1. Ocular hypertension OU 2. Pseudophakia OU (-) Pain: (-) KING: (-) Diplopia: (-) Flashes: (-) Floaters: (-) Amaurosis Fugax/Tia's: (-) Eye Injury: (-) Eye Surgery: (-) TBI FOHx: (-) Glaucoma/ARMD/Blindness (-) Smoker/Length of Time/PPD: VITALS (most recent, as listed in the electronic record): B/P: 137/90 (09/18/2018 11:10) Pulse: 83 (09/18/2018 11:10) Temperature: 98.7 F [37.1 C] (09/18/2018 11:10) Weight: 200.2 lb [90.81 kg] (09/18/2018 11:10) Height: 64 in [162.6 cm] (09/18/2018 11:10) BMI: BMI: 34.4 PERTINENT LABS: HEMOGLOBIN A1C TREND No data available DVA ( X)sc ( )cc - phoropter OD: 20/200-1 OS: 20/25 Pupils: PERRL (-)APD EOMs: SAFE OU, (-)Pain/Diplopia CVF (facial, peripheral): FTFC OU Subjective Refraction: OD: -2.75-0.50 x 100 20/20 OS: -0.50 sph 20/20 Add: 2.50 All the above performed by student, reviewed by attending Anterior segment: Performed by student, repeated by attending Lids: dermatochalasis OU MGD OU Conj: white and quiet OU Cornea: clear OU AC: D&Q OU Angles: 4x4 OU Iris: flat and clear OU (-) TID Lens: PCIOL OU well centered, tr PCO OD>OS Tonometry: Performed by student, reviewed by attending [ X] iCare OD 13 mmHg OS 10 mmHg Time: 10:24am Previous IOP JUNE 2023 Time: 1:33PM OD: 19 OS: 16 Pachymetry: Previously measured 520 um right eye 525 um left eye Prior T max: 25 OD 20 OS Fundus exam: Dilated: XXX 10:28am Non dilated: Dilating Drops: 1GTT 1 % Tropicamide OU & 1GTT 2.5% Phenylephrine OU (Pt. ed. on side effects, dilation warning given and verbal consent obtained) Patient advised not to drive if they feel they have any symptoms which could affect their ability to drive safely. Patient advised not to engage in any activities which could put themselves or others at risk if they feel they have any symptoms which could affect their ability to perform those activities safely. Performed by student, repeated by attending Vit: clear OU C/D: 0.75 OD, 0.50 OS (-)Drance hemes/notching (+)PPA Macula: flat and clear OU PPole: clear A/V: 1/3 Vessels: normal caliber OU Periph: flat and intact (-)holes, tears, detachments 360 OU Assessment/Plan: 1. Pseudophakia (OU) - PCIOLs appear well centered and stable today - Pt. ed. on findings, monivision done. - Monitor 2. H/o Ocular Hypertension - Pressures were normotensive today with below average pachymetry - no changes in ONH noted today, Imaging deferred due to pt's physical and mental limitations - Monitor yearly 3. Antimetropia Presbyopia OU - pt happy with vision after cataract extraction - Monitor Return to Clinic 12 months or earlier PRN /baltazar/ JORDYN BARRAZA OPTOMETRY STUDENT Signed: 08/12/2024 14:53 /es/ Maicol Marion OD CHIEF OF OPTOMETRY Cosigned: 08/13/2024 07:07 08/13/2024 ADDENDUM STATUS: COMPLETED I saw this patient in conjunction with the student and agree with stated findings and plan as noted below after reviewing both the history and repeating blue elements of the physical exam now. Patient last seen here July 05, 2023 with history of high myopic refractive error each eye and visually significant cataracts referred for cataract surgery. He also was noted to have a history of ocular hypertension with previous maximum IOP noted to be 25 mmHg right eye 20 mmHg left eye with asymmetric optic nerve disc size and corresponding asymmetric cupping right greater than left eye. Previous pachymetry was noted to be slightly thinner than average at 520 m right eye and 525 m left eye. He was seen by [facility] [place] for initial consultation with noted equal optic nerve cupping and no concern for glaucoma based on IOP here disc appearance. He subsequently underwent successful cataract surgery each eye and is quite happy with visual outcome. Impression: Bilateral pseudophakia looks perfect he is happy with vision after cataract surgery without glasses and appears to have modified monovision with good vision both distance and near without correction. Disorders of the optic nerve not classified elsewhere right eye with asymmetric disc size and corresponding asymmetric cupping 0.70 right eye 0.50 left eye with intact rim tissue and good color. There is no evidence of pseudoexfoliation or pigment dispersion either eye and intraocular pressure is in the low teens and slightly higher with adjustment for pachymetry. Plan for repeat optic nerve OCT at return exam next year. Previous field testing has shown poor reliability indices in the past. Trace bilateral epiretinal membrane each eye not impacting best corrected acuity at present. Prior history of traumatic brain injury without ocular complication or sequelae. Plan: Patient education as noted above review all exam findings now. Declines new glasses happy with vision after cataract surgery without correction for now. Plan for repeat exam with repeat optic nerve OCT in 12 months or sooner if need be. Ophthalmic medication reconciliation: He is currently not taking or prescribed any ocular medications. Medication Reconciliation: Outpatient: Has the patient been taking medications as documented in the EMLR? YES: The patient has been taking medications as documented in the EMLR. Essential Medication List for Review used to complete this medication reconciliation. INCLUDED IN THIS LIST: Alphabetical list of active outpatient prescriptions dispensed from this VA (local) and dispensed from another [place] or [facility] facility (remote) as well as inpatient orders (local, pending and active), local clinic medications, locally documented non-VA medications, and local prescriptions that have or been discontinued in the past 90 days. - All changes in medications, including all non-VA/Herbal/OTC medications were entered into CPRS. - If there were any medications the patient should no longer take, they were discontinued. - The patient/caregiver was instructed to update this list, discard old lists, and take this list to the next appointment, whether with a VA or non-VA provider. JLV Link Data on this list may not be complete. Please check JLV. Allergies/ADRs (Tool #5) FACILITY ALLERGY/ADR -------- No Remote Allergy/ADR Data available for this patient [facility] [place] [facility] ASMANEX TWISTHALER [facility] DAIRY FOODS [facility] [place] INFLUENZA VACCINE [facility] PERPHENAZINE Med [facility] ([facility] INCLUDED IN THIS LIST: Alphabetical list of active outpatient prescriptions dispensed from this NE (local) and dispensed from another [place] or [facility] facility (remote) as well as inpatient orders (local pending and active), local clinic medications, locally documented non-VA medications, and local prescriptions that have or been discontinued in the past 90 days. Non-VA Meds Last Documented On: Jul 05, 2023 NOTE The display of VA prescriptions dispensed from another [place] or [facility]D facility (remote) is limited to active outpatient prescription entries matched to National Drug File at the originating site and may not include some items such as investigational drugs, compounds, etc. NOT INCLUDED IN THIS LIST: Medications self-entered by the patient into personal health records (i.e. [employer]) are NOT included in this list. Non-VA medications documented outside this [place], remote inpatient orders (regardless of status) and remote clinic medications are NOT included in this list. The patient and provider must always discuss medications the patient is taking, regardless of where the medication was dispensed or obtained. Non-VA ACETAMINOPHEN 325MG TAB TAKE TWO TABLETS BY MOUTH EVERY 6 HOURS NEEDED Medication prescribed by Non-VA provider. Non-VA ALBUTEROL SO4 0.083% INHL 3ML INHALE 1 AMPULE IN NEBULIZER EVERY 4 HOURS NEEDED Medication prescribed by Non-VA provider. Non-VA AMLODIPINE BESYLATE 5MG TAB TAKE ONE TABLET BY MOUTH ONCE DAILY Medication prescribed by Non-VA provider. Non-VA BISACODYL 10MG RTL SUPP INSERT 1 SUPPOSITORY(IES) RECTALLY NEEDED Medication prescribed by Non-VA provider. Non-VA BUDESONIDE 160/FORMOTER 4.5MCG 120D INH INHALE 2 PUFFS BY MOUTH TWICE DAILY Medication prescribed by Non-VA provider. Non-VA DOCUSATE NA 100MG CAP TAKE 1 CAPSULE BY MOUTH TWICE DAILY Medication prescribed by Non-VA provider. Non-VA DUPILUMAB (DUPIXENT SYRINGE) INJ,SOLN INJECT SUBCUTANEOUSLY EVERY OTHER WEEK Non-VA medication not recommended by VA provider. Indication: UNKNOWN Non-VA FINASTERIDE 5MG TABLET TAB TAKE BY MOUTH Non-VA medication not recommended by VA provider. Indication: UNKNOWN Non-VA FLUTICASONE PROP 50MCG 120D NASAL INHL INSTILL 1 SPRAY INTO EACH NOSTRIL TWICE DAILY Medication prescribed by Non-VA provider. Non-VA HYDROCHLOROTHIAZIDE TAB TAKE BY MOUTH Non-VA medication not recommended by VA provider. Indication: UNKNOWN Non-VA LORAZEPAM 0.5MG TAB TAKE ONE TABLET BY MOUTH TWICE DAILY NEEDED Medication prescribed by Non-VA provider. Non-VA MILK OF MAGNESIA TAKE 30ML (2 TABLESPOONS) BY MOUTH ONCE DAILY NEEDED Medication prescribed by Non-VA provider. Non-VA POTASSIUM CHLORIDE 10MEQ EXT REL TAB,SA TAKE BY MOUTH Non-VA medication not recommended by VA provider. Indication: FOR LOW POTASSIUM Non-VA TERAZOSIN HCL CAP,ORAL TAKE BY MOUTH Non-VA medication not recommended by VA provider. Indication: UNKNOWN Non-VA TIOTROPIUM 18MCG INHL CAP 30 INHALE 1 CAPSULE (2 INHALATIONS) IN INHALER BY MOUTH ONCE DAILY Medication prescribed by Non-VA provider. SUPPLIES Declines printed copy of medication list now. Total time spent: Chart review, history examining and counseling patient as well as entering orders with medical decision making and clinical documentation 34 minutes -3 minutes for refraction equals 31 minutes. /baltazar/ Maicol Marion OD CHIEF OF OPTOMETRY Signed: 08/13/2024 07:14 DAE BARRAZA [facility]
--- OUTSIDE RECORDS SUMMARY | 2024-10-08 02:03 | XMS_ITS | Continuity of Care Document ---
Author Name [facility] Organization [facility] Care Team Providers Care Liaison Planner Name Role Phone [facility] Unavailable Unavailable Problems Combined list of problems from Department of Defense and Veterans Affairs facilities. It does not include entries that were removed or entered in error. Problem Status Onset Date Problem Type Date of Resolution Comments Source Femoral neck fracture Active 013 Condition Feb 04, 2015 Entered By: PATRICIA COCHRAN Comment: s/p left hip hemiarthroplasty CARRIER Bilateral hearing loss Active 009 Condition [facility] Hypertension Active 008 Condition [facility] Abdominal aortic aneurysm Active Condition September 19, 2018 Entered By: MILES ALEJANDRA Comment: 05/16/11 - mid AAA 3.1 cm [facility] Allergic rhinitis [facility] Benign prostatic hypertrophy without outflow obstruction Active Condition [facility] Chronic obstructive pulmonary disease Active Condition [facility] Colonoscopy Screening Active Condition September 18, 2018 Entered By: MILES ALEJANDRA Comment: Vet declines procedure CARRIER Concussion with moderate loss of consciousness Active Condition May 10, 2011 Entered By: SIMA GAMBOA Comment: 2 Concussions CARRIER Gastroesophageal reflux disease Active Condition [facility] Generalized anxiety disorder Active Condition May 10 2 Entered By: SIMA GAMBOA Comment: 1978: Admission for [facility] to [facility] 2011 Entered By: UZIEL MENDOZA Comment: lifelong problems with excessive worry, tension, etc [facility] History of traumatic brain injury Active Condition [facility] Hyperlipidemia Active Condition [facility] Impulse-Control Disorder NOS Active Condition Jun 29, 2011 Entered By: MILES BARCLAY Comment: R/o early DementiaJul 20, 2011 Entered By: SIMA GAMBOA Comment: 05-12 to 06-30-2011 [facility] Primary Care Physician Active Condition September 18, 2018 Entered By: MILES ALEJANDRA Comment: [facility] - [facility] Alexis Kerr [facility] Syncope and collapse (ICD-9-CM 780.2) Active Condition RICHARD Tinnitus [facility] Torticollis Active Condition May 10, 2011 Entered By: SIMA GAMBOA Comment: 80` towards the leftMay 10, 2011 Entered By: SIMA GAMBOA Comment: rt shoulder lower than left CARRIER Diagnosis: ICD-10-CM Z96.1 Presence of intraocular lens [facility] Diagnosis: ICD-10-CM Z46.0 Encounter for fit/adjst of spectacles and contact lenses Active [facility] Diagnosis: ICD-10-CM H40.053 Ocular hypertension, bilateral Active Diagnosis [facility] Medications Combined list of outpatient medications from Department of Defense and Veterans Affairs facilities.Medications provided include 1) outpatient medications from the last 15 months, and 2) patient-reported medications. Medication Details Route Status Indication(s) Patie nt Instructions Prescription Expires Prescription Number Last Dispense Date Ordering Provider Order Date Order Qty Source ACETAMINOPH EN 325MG TAB TAKE TWO TABLETS BY MOUTH EVERY 6 HOURS NEEDED ORAL ACTIVE JOCELYNN ALEJANDRA SA 2018 [facility] ALBUTEROL SO4 0.083% INHL,3ML INHALE 1 AMPULE IN NEBULIZE R EVERY 4 HOURS NEEDED RESPIR ATORY (INHAL ATION) ACTIVE JOCELYNN ALEJANDRA SA 2018 [facility] AMLODIPINE BESYLATE 5MG TAB TAKE ONE TABLET BY MOUTH ONCE DAILY ORAL ACTIVE JOCELYNN ALEJANDRA SA 2018 [facility] BISACODYL 10MG SUPP,RTL INSERT 1 SUPPOSIT ORY(IES) RECTALLY NEEDED RECTAL ACTIVE JOCELYNN ALEJANDRA SA 2018 [facility] BUDESONIDE 160MCG/FORM OTEROL FUM 4.5MCG/SPRA Y INHL,ORAL,1 0.2GM INHALE 2 PUFFS BY MOUTH TWICE DAILY RESPIR ATORY (INHAL ATION) ACTIVE JOCELYNN ALEJANDRA SA 2018 [facility] DOCUSATE NA 100MG CAP TAKE 1 CAPSULE BY MOUTH TWICE DAILY ORAL ACTIVE JOCELYNN ALEJANDRA SA 2018 [facility] DUPILUMAB (DUPIXENT SYRINGE) INJ,SOLN INJECT SUBCUTAN EOUSLY EVERY OTHER WEEK SUBCUT ANEOUS ACTIVE Michelle [facility] 2023 [facility] FINASTERIDE 5MG TABLET TAB TAKE BY MOUTH ORAL ACTIVE Michelle MARION [facility] 2023 [facility] FLUTICASONE PROPIONATE 50MCG/SPRAY SOLN,NASAL, 16GM INSTILL 1 SPRAY INTO EACH NOSTRIL TWICE DAILY NASAL ACTIVE JOCELYNN ALEJANDRA SA 2018 [facility] HYDROCHLORO THIAZIDE TAB TAKE BY MOUTH ORAL ACTIVE Michelle MARION [facility] 2023 [facility] LORAZEPAM 0.5MG TAB TAKE ONE TABLET BY MOUTH TWICE DAILY NEEDED ORAL ACTIVE JOCELYNN ALEJANDRA SA 2018 [facility] MILK OF MAGNESIA TAKE 30ML (2 TABLESPO ONS) BY MOUTH ONCE DAILY NEEDED ORAL ACTIVE JOCELYNN ALEJANDRA SA 2018 [facility] POTASSIUM CHLORIDE 10MEQ EXT REL TAB,SA TAKE BY MOUTH ORAL ACTIVE Michelle MARION [facility] 2023 [facility] TERAZOSIN HCL CAP,ORAL TAKE BY MOUTH [facility] TIOTROPIUM 18MCG CAP,INHL,30 INHALE 1 CAPSULE (2 INHALATI ONS) IN INHALER BY MOUTH ONCE DAILY RESPIR ATORY (INHAL ATION) ACTIVE JOCELYNN ALEJANDRA SA 2018 [facility] Allergies, Adverse Reactions, Alerts Combined list of allergies from Department of Defense and Veterans Affairs facilities. It does not include entries that were removed or entered in error. Substance Category Reaction Severity Reaction type Status Date Reported Comments Source ASMANEX TWISTHALER Propensity to adverse reactions to drug (finding) active 9 [facility] CLARITIN Propensity to adverse reactions to drug (finding) active 9 [facility] DAIRY FOODS Propensity to adverse reactions to food (finding) active 9 [facility] EGGS Propensity to adverse reactions to substance (finding) active 9 [facility] ELAVIL Propensity to adverse reactions to drug (finding) active 2 [facility] INFLUENZA VACCINE Propensity to adverse reactions to drug (finding) Weakness present active 9 [facility] PERPHENAZINE Propensity to adverse reactions to drug (finding) active 9 [facility] Immunizations Combined list of available immunizations from the Department of Defense and Veterans Affairs facilities. 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 DTAP, UNSPECIFIED FORMULATION 2012 107 complet ed [facility] Encounters Combined list of: 1) Encounters from Department of Veterans Affairs facilities going backup to the last 18 months, not all OR inpatient encounters are included; 2) Encounters from the Department of Defense facilities going backup to 280 months. Location Location Details Encounter Type Encounter Number Reason For Visit Attending Provider ADM Date DC Date Status Disposition Source [facility] [place] [facility] EXTENDED VISUAL FIELD XM [id number] Diagnos is: ICD-10- CM H40.053 Ocular hyperte nsion, bilater al DONI,[place] JEY 07[facility]04 [facility] COMPRE OPH EXAM EST PT 1/> [id number] Diagnos is: ICD-10- CM H40.053 Ocular hyperte nsion, bilater al CONCETTA MARION 07/04 [facility] [place] [place] FIT SPECTACLES MONOFOCAL [id number] Diagnos is: ICD-10- CM Z46.0 Encount er for fit/adj st of spectac les and contact lenses CONCETTA MARION 07/08 [facility] [place] [facility] [place] Outpatient Encounter [id number] 10/04 [facility] [place] [facility] [place] [facility] Outpatient Encounter [id number] 12/27 [facility] [place] [facility] [place] [facility] Outpatient Encounter [id number] 02/11 [facility] [place] [facility] [place] [facility] OFFICE O/P EST MOD 30 MIN [id number] Diagnos is: ICD-10- CM Z96.1 Presenc e of intraoc ular lens CONCETTA MARION 08/12 [facility] [place] [facility] Social History Combined list of available smoking, tobacco, and other social history from Department of Defense and Veterans Affairs facilities. Social History Type Response Date Comment Source Tobacco smoking status [facility] VA-TOBACCO NEVER USED 09/11/2018 CARRIER History of tobacco use QUIT TOBACCO USE > 7 YEARS AGO 08/27/2007 quit 40 years ago [facility] [place] [facility] Advance Directives List of completed, amended, or rescinded Advance Directives on record at Department of Veterans Affairs facilities. An actual copy of the Directive is not included. Date Advance Directive Provider Source 05/26/2011 ADVANCE DIRECTIVE ZORAIDA SEGOVIA [facility] [place] [facility] 05/18/2011 ADVANCE DIRECTIVE MEGHAN RODRIGUEZ [facility]
--- OUTSIDE RECORDS SUMMARY | 2025-03-10 06:04 | XMS_ITS | Encounter Summary ---
Author Organization [employer] Address 75 [facility] 7t [place] [address] Care Team Providers Care Coding Specialist Home Health Name Role Phone Unavailable Primary Care Provider Unavailabl e Encounter Details Date Type Department Care Team (Late st Contact Info) Description 05/24/2023 Abstract [facility] [address] [place] [address] Reji Gomez, DMD [address] [place] [address] Social History Tobacco Use Types Packs/Day Years [...]
--- OUTSIDE RECORDS SUMMARY | 2025-03-10 06:04 | XMS_ITS | Encounter Summary ---
Author Organization [employer] Address 75 [facility] 7t [place] [address] Care Team Providers Care Cardiac Monitor Name Role Phone Unavailable Primary Care Provider Unavailabl e Encounter Details Date Type Department Care Team (Late st Contact Info) Description 05/24/2023 Abstract [facility] [address] [place] [address] Reji Gomez, DMD [address] [place] [address] Social History Tobacco Use Types Packs/Day Years [...]
--- OUTSIDE RECORDS SUMMARY | 2025-03-10 06:04 | XMS_ITS | Encounter Summary ---
Author Organization [employer] Address 75 [facility] 7t [place] [address] Care Team Providers Care Card Stripper Name Role Phone Unavailable Primary Care Provider Unavailabl e Encounter Details Date Type Department Care Team (Late st Contact Info) Description 05/24/2023 Abstract [facility] [address] [place] [address] Reji Gomez, DMD [address] [place] [address] Social History Tobacco Use Types Packs/Day Years [...]
--- OUTSIDE RECORDS SUMMARY | 2025-03-10 06:04 | XMS_ITS | Clinical Summary ---
Author Organization [employer] Address 75 [facility] 7t [place] [address] Care Team Providers Care Natural Foods Clerk Name Role Phone Unavailable Primary Care Provider [...] GAMBOA Comment: 1978: Admission for Depression to [facility] Jun 23, 2011 Entered By: UZIEL MENDOZA Comment: lifelong problems with excessive worry, tension, etc History of traumatic brain injury 12/17/2024 Hyperlipidemia 12/17/2024 Impulse control disorder 12/17/2024 Overview (12/17/2024): Jun 29, 2011 Entered By: MILES BARCLAY Comment: R/o early Dementia Jul 20, 2011 Entered By: SIMA GAMBOA Comment: 05-12 to 3 [facility] W4U Ocular hypertension, bilateral 12/17/2024 Presence of [...] Description 02/04/2025 10:00 AM EDT Office Visit [facility] [address] [place] [id number] Reji Gomez DMD 01/21/2025 8:15 AM EDT Office Visit [facility] [address] [place] [address] Lucio Slatersa Dental plaque (Primary Dx); Dental calculus 12/17/2024 8:00 AM EDT Office Visit [facility] [address] [place], [place] [phone] DickReji gary DMD from Last 3 Months [...]
[2025-03-10 06:05] LABS: MANUAL DIFF FLAG NO
[2025-03-10 06:30] LABS: Hematocrit 40.0 % (42.0-52.0); Hemoglobin 13.2 g/dl (14.0-18.0); Imm Gran Abs Auto 0.01 X10*3/uL (0.00-0.03); Imm Gran Pct Auto 0.2 % (0.0-0.4); Lymphocytes Absolute Auto 1.0 X10*3/uL (1.2-4.9); Mean Corpuscular HGB Conc 33.0 g/dl (31.0-36.0); Mean Corpuscular Hemoglobin 30.3 pg (27.0-33.0); Mean Corpuscular Volume 91.7 fL (80.0-98.0); NRBC Abs Auto 0.000 X10*3/uL (0.0-0.012); NRBC Pct Auto 0.0 /100WBC (0.0-0.2); Platelet Count 303 X10*3/uL (160-400); Red Blood Count 4.36 X10*6/uL (4.60-5.80); White Blood Count 6.5 X10*3/uL (4.8-10.8)
[2025-03-10 06:58] LABS: Anion Gap 15 (12-20); Blood Urea Nitrogen 31 mg/dL (9-16); Calcium 9.0 mg/dL (8.4-10.2); Carbon Dioxide 26 mmol/L (22-29); Chloride 106 mmol/L (96-108); Estimated Glomerular Filt Rate 58; Potassium 2.9 mmol/L (3.3-5.1); Sodium 144 mmol/L (135-145)
== END 2025-03-10 06:03 | disposition home or self-care (01) ==
LOC: HO.HSH2N 06:02
PROVIDERS: Visit Provider Internal Medicine Interventional Cardiology
DX: R41.82 Altered mental status, unspecified (principal)
CPT/HCPCS: 36415; 80048; 85025

== ENCOUNTER 2025-03-11 05:59 | Outpatient (REF) | payer MEDICARE, SELFPAY ==
--- OUTSIDE RECORDS SUMMARY | 2025-03-11 06:01 | XMS_ITS | Encounter Summary ---
Author Organization [employer] Address 75 [facility] 7t [place] [address] Care Team Providers Care Cuffing Machine Operator Name Role Phone Unavailable Primary Care Provider Unavailabl e Encounter Details Date Type Department Care Team (Late st Contact Info) Description 05/24/2023 Abstract [facility] [address] [place] [address] Reji Gomez, DMD [address] [place] [address] Social History Tobacco Use Types Packs/Day Years [...]
--- OUTSIDE RECORDS SUMMARY | 2025-03-11 06:01 | XMS_ITS ---
Author Organization Unknown ENCOUNTERS Encounter Performer Location Date Diagnosis Diagnosis Status Emergency Lex Sciaruto [facility] [address] [place] [id number] XLTC Pre Admit Generic ED Physician [facility] [address] [place] [id number] *Note: Encounters from your own facility or health system may be excluded. Allergies, Adverse Reactions, Alerts Allergen Type Severity Identification Date Medications Name Date Quantity Days Supplied GPI Number
--- OUTSIDE RECORDS SUMMARY | 2025-03-11 06:01 | XMS_ITS | Encounter Summary ---
Author Organization [employer] Address 75 [facility] 7t [place] [address] Care Team Providers Care Laboratory Asst Name Role Phone Unavailable Primary Care Provider Unavailabl e Encounter Details Date Type Department Care Team (Late st Contact Info) Description 05/24/2023 Abstract [facility] [address] [place] [address] Reji Gomez, DMD [address] [place] [address] Social History Tobacco Use Types Packs/Day Years [...]
--- OUTSIDE RECORDS SUMMARY | 2025-03-11 06:01 | XMS_ITS | Encounter Summary ---
Author Organization [employer] Address [address] [facility] 7t [place] [address] Care Team Providers Care Post Hole Digger Name Role Phone Unavailable Primary Care Provider Unavailabl e Encounter Details Date Type Department Care Team (Late st Contact Info) Description 05/24/2023 Abstract [facility] [address] [place] [address] Reji Gomez, DMD [address] [place] [address] Social History Tobacco Use Types Packs/Day Years [...]
--- OUTSIDE RECORDS SUMMARY | 2025-03-11 06:01 | XMS_ITS | Clinical Summary ---
Author Organization [employer] Address 75 [facility] 7t [place] [address] Care Team Providers Care Chair Installer Name Role Phone Unavailable Primary Care Provider [...] GAMBOA Comment: 1978: Admission for Depression to [facility] Jun 23, 2011 Entered By: UZIEL MENDOZA Comment: lifelong problems with excessive worry, tension, etc History of traumatic brain injury 12/17/2024 Hyperlipidemia 12/17/2024 Impulse control disorder 12/17/2024 Overview (12/17/2024): Jun 29, 2011 Entered By: MILES BARCLAY Comment: R/o early Dementia Jul 20, 2011 Entered By: SIMA GAMBOA Comment: 05-12 to 3 [facility] W4U Ocular hypertension, bilateral 12/17/2024 Presence of [...] Description 02/04/2025 10:00 AM EDT Office Visit [facility] [address] [place] [address] Reji Gomez DMD 01/21/2025 8:15 AM EDT Office Visit [facility] [address] [place] [address] Lucio Slatersa Dental plaque (Primary Dx); Dental calculus 12/17/2024 8:00 AM EDT Office Visit [facility] [address] [place], [place] [phone] DickReji gary DMD from Last 3 Months [...]
[2025-03-11 06:35] LABS: Anion Gap 15 (12-20); Blood Urea Nitrogen 28 mg/dL (9-16); Calcium 9.5 mg/dL (8.4-10.2); Carbon Dioxide 26 mmol/L (22-29); Chloride 108 mmol/L (96-108); Estimated Glomerular Filt Rate 59; Potassium 3.7 mmol/L (3.3-5.1); Sodium 145 mmol/L (135-145)
== END 2025-03-11 06:00 | disposition home or self-care (01) ==
LOC: HO.HSH2N 05:59
PROVIDERS: Visit Provider Internal Medicine Interventional Cardiology
DX: E87.6 Hypokalemia (principal)
CPT/HCPCS: 36415; 80048; 81003

== ENCOUNTER 2025-03-16 06:48 | Outpatient (REF) | payer MEDICARE, SELFPAY ==
--- OUTSIDE RECORDS SUMMARY | 2025-03-16 06:51 | XMS_ITS | Continuity of Care Document ---
Author Organization [place] 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 ; Note: Date Diagno sed: 019 3:53 PM (J33.0 ) Not Available [facility] 4 02:15:31 Nasal congestion 85204837 Active 2018 Nasal conges tion; Note: Date Diagno sed: 019 3:53 PM (R09.8 1) Not Available [facility] 4 02:14:16 Polyp of nasal sinus 72632378 Active 2018 Other polyp of sinus; Note: Date Diagno sed: 11/29/19 19 10:59 AM (J33.8 ) Not Available [facility] 4 02:14:07 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 4 13:31:08 Deviated nasal septum 837035577 Active 2023 NATALI WILSON MD [address] [place], [place] [address], [address] , 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 4 13:31:18 Problem Notes None recorded. Procedures Surgical History Date Name Laterality Status Provider Name and Address Organization Details Recorded Time 02/19/20 25 JMSNasal/Sinus Endoscopy completed NATALI LEE MD [address], [place], [address], [place] - [facility] 02/18/2025 13:30:13 08/19/19 25 JMSNasal/Sinus Endoscopy completed NATALI LEE MD [address], [place], [address], [place] [facility] 08/18/2024 13:41:30 02/18/20 24 JMSNasal/Sinus Endoscopy completed NATALI LEE MD [address] [facility] [address], [place], [address], [place] [facility] 02/18/2024 13:31:02 total replacement of hip completed Eli Contreras [place] - [facility] 02/18/2025 13:13:46 Imaging Results None recorded. Procedure Notes None recorded. Medical Equipment None Reported. Allergies Allergen ID Allergen Name Allergen Category Reaction Reaction Severity Criticality Documentation Date Start Date Code Code System Note Provider Name and Address Organization Details Recorded Time 01731 Claritin medicatio n other Not available Not available 09/11/2023 77931 6 RxNorm React ion: unkno wn, unspe cifie d;; Not Available [facility] 4 00:48:26 22988 egg extract food,medi cation other Not available Not available 09/11/2023 10188 15 RxNorm React ion: unkno wn, unspe cifie d;; Not Available [facility] 4 00:48:35 63778 Dairy medicatio n other Not available Not available 09/11/2023 React ion: unkno wn, unspe cifie d;; Not Available [facility] 4 00:48:35 52318 Elavil medicatio n other Not available Not available 09/11/2023 21009 RxNorm React ion: unkno wn, unspe cifie d;; Not Available [facility] 4 00:48:41 37543 acetamino phen / oxycodone medicatio n other Not available Not available 09/11/2023 25483 3 RxNorm React ion: unkno wn, unspe cifie d;; Not Available [facility] 4 00:48:52 12133 Influenza medicatio n other Not available Not available 09/11/2023 React ion: unkno wn, unspe cifie d;; Not Available [facility] 4 00:48:52 71505 Triavil medicatio n other Not available Not available 09/11/2023 React ion: unkno wn, unspe cifie d;; Not Available [facility] 4 00:49:00 Medications Name Sig Start Date Stop Date Status Note LastModified by Organization Details LastModified Time amlodipin e 2.5 mg tablet Take 1 tablet every day by oral route. 02/18 completed Not Available Not Available Not Available amlodipin e 5 mg tablet active Medicati on ID: [id number] B rand Name: amlodipi ne Send Method: E-Prescr ibed Sub s Allowed: subs OK Medic ationGen ericName : amlodipi ne Not Available Not Available Not Available potassium chloride 20 mEq/15 mL oral liquid active Medicati on ID: [id number] B rand Name: potassiu m chloride Send [...] for inhalatio n active Medicati on ID: [id number] B rand Name: Advair Diskus S end Method: E-Prescr ibed Sub s Allowed: subs OK Medic ationGen ericName : Advair Diskus Not Available Not Available Not Available docusate sodium 100 mg capsule 2018 active Medicati on ID: [id number] B rand Name: docusate sodium S end Method: E-Prescr ibed Sub s Allowed: subs OK Medic ationGen ericName : docusate sodium Not Available Not Available Not Available hydrochlo rothiazid e 25 mg tablet active Medicati on ID: [id number] B rand Name: hydrochl orothiaz zak Send [...] 10 mg capsule active Medicati on ID: [id number] B rand Name: terazosi n Send Method: E-Prescr ibed Sub s Allowed: subs OK Medic ationGen ericName : terazosi n Not Available Not Available Not Available finasteri de 5 mg tablet active Medicati on ID: 368646 B rand Name: finaster zak Send Method: E-Prescr ibed Sub s Allowed: subs OK Medic ationGen ericName : finaster zak Not Available Not Available Not Available bisacodyl 5 mg tablet Take 1 tablet every day by oral route. active Not Available Not Available No t Available tiotropiu m bromide 18 mcg capsule with inhalatio n device active Medicati on ID: [id number] B rand Name: tiotropi um bromide Send Method: E-Prescr ibed Sub s Allowed: subs OK Medic ationGen ericName : tiotropi um bromide Not Available Not Available Not Available chlorhexi dine gluconate 0.12 % mouthwash active Medicati on ID: [id number] B rand Name: chlorhex idine gluconat e Send Method: E-Prescr ibed Sub s Allowed: subs OK Medic ationGen ericName : chlorhex idine gluconat e Not Available Not Available Not Available cholecalc iferol (vitamin D3) 25 mcg (1,000 unit) tablet active Medicati on ID: [id number] B rand Name: cholecal ciferol (vitamin D3) Send Method: E-Prescr ibed Sub s Allowed: subs OK Medic ationGen ericName : cholecal ciferol (vitamin D3) Not Available Not Available Not Available Symbicort 160 mcg-4.5 mcg/actua tion HFA aerosol inhaler 02/18 completed Medicati on ID: [id number] B rand Name: Symbicor t Send Method: E-Prescr ibed Sub s Allowed: subs OK Medic ationGen ericName : Symbicor t Not Available Not Available Not Available Nasal Hersey (sodium chloride) 0.65 % aerosol active Medicati on ID: [id number] B rand Name: Nasal Hersey (sodium chloride ) Send Method: E-Prescr ibed Sub s Allowed: subs OK Medic ationGen ericName : Nasal Hersey (sodium chloride ) Not Available Not Available Not Available Flonase Allergy Relief 50 mcg/actua tion nasal spray,xavier pension active Medicati on ID: [id number] B rand Name: Flonase Allergy Relief S [...] ICD10 Code Diagnosis IMO Codes Diagnosis Note [id number] NATALI WILSON MD [facility] [address] [address] 02/18/2025 12:48:46 02/18/2025 13:29:07 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 384501931 J33.9 Deviated nasal septum 12 1918318 J34.2 Hypereosin ophilic syndrome 552791535 D72.119 Health Concerns Section Related Observation LastModified by Organization Detlaurel leigh LastModified Time None Recorded Concern Status LastModified by Organization Details LastModified Time None Recorded Payers Encounter Date Sequence Insurance Name Policy Number Policy Castrejon Covered Member ID Castrejon Member ID Guarantor Name 02/18/2025 1 MEDICARE -AL: [employer] Aravind Phelan [id number] Aravind Phelan Notes Date Note Type [...] good. Continues on nasal NATALI LEE MD [address] [place] [address], [place], [address], [facility] 02/18/2025 13:31:04
--- OUTSIDE RECORDS SUMMARY | 2025-03-16 06:52 | XMS_ITS | Clinical Summary ---
Author Organization [employer] Address [address] [facility] 7t [place] [address] Care Team Providers Care Risk Control Field Representative Name Role Phone Unavailable Primary Care Provider [...] GAMBOA Comment: 1978: Admission for Depression to [facility] Jun 23, 2011 Entered By: UZIEL MENDOZA Comment: lifelong problems with excessive worry, tension, etc History of traumatic brain injury 12/17/2024 Hyperlipidemia 12/17/2024 Impulse control disorder 12/17/2024 Overview (12/17/2024): Jun 29, 2011 Entered By: MILES BARCLAY Comment: R/o early Dementia Jul 20, 2011 Entered By: SIMA GAMBOA Comment: 05-12 to 3 [facility] W4U Ocular hypertension, bilateral 12/17/2024 Presence of [...] Description 02/04/2025 10:00 AM EDT Office Visit [facility] [address] [place] [address] Reji Gomez DMD 01/21/2025 8:15 AM EDT Office Visit [facility] [address] [place] [address] Amira Slater Dental plaque (Primary Dx); Dental calculus 12/17/2024 8:00 AM EDT Office Visit [facility] [address] [place], [place] [phone] DickReji gary DMD from Last 3 Months [...] Use Screening 1959 Hepatitis C Screening 1965 DTaP/Tdap/Td Vaccines (1 - Tdap) 1966 Dental X-Ray: [facility] 08/04/2023 08/02/2022 COVID-19 Vaccine ( season) 2024 02/13/2023, 10/04/2022, [...]
--- OUTSIDE RECORDS SUMMARY | 2025-03-16 06:52 | XMS_ITS | Encounter Summary ---
Author Organization [employer] Address [address] [facility] 7t [place] [address] Care Team Providers Care Insulator Tester Name Role Phone Unavailable Primary Care Provider Unavailabl e Encounter Details Date Type Department Care Team (Late st Contact Info) Description 05/24/2023 Abstract [facility] [address] [place] [address] Reji Gomez, DMD [address] [place] [address] Social History Tobacco Use Types Packs/Day Years [...]
--- OUTSIDE RECORDS SUMMARY | 2025-03-16 06:52 | XMS_ITS | Encounter Summary ---
Author Organization [employer] Address [address] [facility] 7t [place] [address] Care Team Providers Care Coding Compliance Auditor Name Role Phone Unavailable Primary Care Provider Unavailabl e Encounter Details Date Type Department Care Team (Late st Contact Info) Description 05/24/2023 Abstract [facility] [address] [place] [address] Reji Gomez, DMD [address] [place] [address] Social History Tobacco Use Types Packs/Day Years [...]
--- OUTSIDE RECORDS SUMMARY | 2025-03-16 06:52 | XMS_ITS | Encounter Summary ---
Author Organization [employer] Address 75 [facility] 7t [place] [address] Care Team Providers Care Helper Teacher Name Role Phone Unavailable Primary Care Provider Unavailabl e Encounter Details Date Type Department Care Team (Late st Contact Info) Description 05/24/2023 Abstract [facility] [address] [place] [address] Reji Gomez, DMD [address] [place] [address] Social History Tobacco Use Types Packs/Day Years [...]
--- OUTSIDE RECORDS SUMMARY | 2025-03-16 06:52 | XMS_ITS | Data Portability ---
Author Organization [place] - [facility], Allergy Address [address] [address] Care Team Providers Care Decision Analyst Name Role Phone FREDERICK LAMBERT Primary Care [...] Not available 08/18/2024 13:41:51 02/18/2025 02/18/2025 Aravind Vazquez Phelan is a 79-year-old male with stable [...] By Organization Details Last Modified Time 02/18/2025 83909 The patient is advised to return for [...] Details Recorded Time Polyp of nasal cavity 424573460 Active 2018 Polyp of nasal cavity ; Note: Date Diagno sed: 019 3:53 PM (J33.0 ) Not Available [facility] 4 02:15:31 Nasal congestion 62353696 Active 2018 Nasal conges tion; Note: Date Diagno sed: 019 3:53 PM (R09.8 1) Not Available [facility] 4 02:14:16 Polyp of nasal sinus 65128083 Active 2018 Other polyp of sinus; Note: Date Diagno sed: 11/29/19 19 10:59 AM (J33.8 ) Not Available [facility] 4 02:14:07 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 900065463 Active 2023 NATALI WILSON MD [address] [facility] [place] [address], [place], [address] , [place] - [facility] 13:31:08 Deviated nasal septum 249694785 Active 2023 NATALI WILSON MD 100 [facility],[place] [address], [place], [address] , [place] - [facility] 13:31:12 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 Procedures Surgical History Date Name Laterality Status Provider Name and Address Organization Details Recorded Time 02/19/20 25 JMSNasal/Sinus Endoscopy completed NATALI LEE MD [address] [place] [address],[address], [address], [facility] - [facility] 02/18/2025 13:30:13 08/19/19 25 JMSNasal/Sinus Endoscopy completed NATALI LEE MD [address] [place] [address],[address], [address], [place] - [facility] 08/18/2024 13:41:30 02/18/20 24 JMSNasal/Sinus Endoscopy completed NATALI LEE MD [address] [place] [address],[address], [address], [place] - [facility] 02/18/2024 13:31:02 total replacement of hip completed Eli Contreras [place] - [facility] 02/18/2025 13:13:46 Imaging Results None recorded. Procedure Notes None recorded. Medical Equipment None Reported. Allergies Allergen ID Allergen Name Allergen Category Reaction Reaction Severity Criticality Documentation Date Start Date Code Code System Note Provider Name and Address Organization Details Recorded Time 49393 Claritin medicatio n other Not available Not available 09/11/202393606 6 RxNorm React ion: unkno wn, unspe cifie d;; Not Available [facility] 4 00:48:26 39959 egg extract food,medi cation other Not available Not available 09/11/2023 56717 15 RxNorm React ion: unkno wn, unspe cifie d;; Not Available [facility] 4 00:48:35 23547 Dairy medicatio n other Not available Not available 09/11/2023 React ion: unkno wn, unspe cifie d;; Not Available [facility] 4 00:48:35 76074 Elavil medicatio n other Not available Not available 09/11/2023 99147 RxNorm React ion: unkno wn, unspe cifie d;; Not Available [facility] 4 00:48:41 73222 acetamino phen / oxycodone medicatio n other Not available Not available 09/11/2023 20817 3 RxNorm React ion: unkno wn, unspe cifie d;; Not Available [facility] 4 00:48:52 60259 Influenza medicatio n other Not available Not available 09/11/2023 React ion: unkno wn, unspe cifie d;; Not Available [facility] 4 00:48:52 53671 Triavil medicatio n other Not available Not available 09/11/2023 React ion: unkno wn, unspe cifie d;; Not Available [facility] 4 00:49:00 Medications Name Sig Start Date Stop Date Status Note LastModified by Organization Details LastModified Time amlodipin e 2.5 mg tablet Take 1 tablet every day by oral route. 02/18 completed Not Available Not Available Not Available amlodipin e 5 mg tablet active Medicati on ID: [id number] B rand Name: amlodipi ne Send Method: E-Prescr ibed Sub s Allowed: subs OK Medic ationGen ericName : amlodipi ne Not Available Not Available Not Available potassium chloride 20 mEq/15 mL oral liquid active Medicati on ID: [id number] B rand Name: ieshaanel m chloride Send [...] for inhalatio n active Medicati on ID: [id number] B rand Name: Advair Diskus S end Method: E-Prescr ibed Sub s Allowed: subs OK Medic ationGen ericName : Advair Diskus Not Available Not Available Not Available docusate sodium 100 mg capsule 2018 active Medicati on ID: [id number] B rand Name: docusate sodium S end Method: E-Prescr ibed Sub s Allowed: subs OK Medic ationGen ericName : docusate sodium Not Available Not Available Not Available hydrochlo rothiazid e 25 mg tablet active Medicati on ID: [id number] B rand Name: hydrochl orothiaz zak Send [...] 10 mg capsule active Medicati on ID: [id number] B rand Name: terazosi n Send Method: E-Prescr ibed Sub s Allowed: subs OK Medic ationGen ericName : terazosi n Not Available Not Available Not Available finasteri de 5 mg tablet active Medicati on ID: [id number] B rand Name: finaster zak Send Method: E-Prescr ibed Sub s Allowed: subs OK Medic ationGen ericName : finaster zak Not Available Not Available Not Available bisacodyl 5 mg tablet Take 1 tablet every day by oral route. active Not Available Not Available No t Available tiotropiu m bromide 18 mcg capsule with inhalatio n device active Medicati on ID: [id number] B rand Name: tiotropi um bromide Send Method: E-Prescr ibed Sub s Allowed: subs OK Medic ationGen ericName : tiotropi um bromide Not Available Not Available Not Available chlorhexi dine gluconate 0.12 % mouthwash active Medicati on ID: [id number] B rand Name: chlorhex idine gluconat e Send Method: E-Prescr ibed Sub s Allowed: subs OK Medic ationGen ericName : chlorhex idine gluconat e Not Available Not Available Not Available cholecalc iferol (vitamin D3) 25 mcg (1,000 unit) tablet active Medicati on ID: [id number] B rand Name: cholecal ciferol (vitamin D3) Send Method: E-Prescr ibed Sub s Allowed: subs OK Medic ationGen ericName : cholecal ciferol (vitamin D3) Not Available Not Available Not Available Symbicort 160 mcg-4.5 mcg/actua tion HFA aerosol inhaler 02/18 completed Medicati on ID: [id number] B rand Name: Symbicor t Send Method: E-Prescr ibed Sub s Allowed: subs OK Medic ationGen ericName : Symbicor t Not Available Not Available Not Available Nasal [place] (sodium chloride) 0.65 % aerosol active Medicati on ID: [id number] B rand Name: Nasal [place] (sodium chloride ) Send Method: E-Prescr ibed Sub s Allowed: subs OK Medic ationGen ericName : Nasal [place] (sodium chloride ) Not Available Not Available Not Available Flonase Allergy Relief 50 mcg/actua tion nasal spray,xavier pension active Medicati on ID: [id number] B rand Name: Flonase Allergy Relief S [...] - [facility] 08/18/2024 13:39:11 Date Recorded Body height Body mass index (BMI) Body weight Provider Name and Address Organization Details Last Updated DateTime 02/18/2024 170.18 cm 31.3 kg/m2 33200.47 g Yanira Buckner [place] - [facility] 02/18/2024 13:07:17 Social History None recorded. Functional Status None recorded. Mental Status None recorded. Family History Nothing Reported. Medical History Condition Response Nasal or Sinus Problems Y GERD/Reflux Y Dementia Y Hypertension Y Nasal polyps Y Asthma Y Past Encounters Encounter ID Performer Location Encounter Start Date Encounter Closed Date Diagnosis/Indication Diagnosis SNOMED-CT Code Diagnosis ICD10 Code Diagnosis IMO Codes Diagnosis Note [id number] NATALI WILSON MD [facility] [address] [address] 02/18/2024 12:50:09 02/18/2024 13:29:59 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 002588949 J33.9 Deviated nasal septum 12 9031489 J34.2 Hypereosin ophilic syndrome 156372887 D72.119 [id number] NATALI WILSON MD [facility] [address] [address] 08/18/2024 13:32:37 08/18/2024 13:52:01 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 570030119 J33.9 Deviated nasal septum 12 9983872 J34.2 Hypereosin ophilic syndrome 020369033 D72.119 [id number] NATALI WILSON MD [facility] [address] [address] 02/18/2025 12:48:46 02/18/2025 13:29:07 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 376955146 J33.9 Deviated nasal septum 12 2267820 J34.2 Hypereosin ophilic syndrome 479398583 D72.119 Health Concerns Section Related Observation LastModified by Organization Detai ls LastModified Time None Recorded Concern Status LastModified by Organization Details LastModified Time None Recorded Advance Directives Directive None Recorded Payers Insurance Date Sequence Insurance Name Policy Number Policy Castrejon Covered Member ID Castrejon Member ID Guarantor Name 02/24/2025 1 MEDICARE B-PA: [email or web address] SERVICES Aravind Phelan [id number] 5 Aravind Phelan Notes Date Note Type Note Provider Name and Address Organization Details Recorded Time 02/18/2024 text/html ROS as noted in the HPI Hx of nasal polyps and elevated eosinophils. Previously recommended Dupixent through [employer]'s homeHe has a history of dementia, hypertension and asthma. He has been on Dupixent injections for several months. Notes improvement in his nasal breathing. Reports recent cataract surgery. NATALI LEE MD 100 [facility],[address], [address], [facility] - [facility] 02/18/2024 13:32:00 08/18/2024 text/html Patient presently on Dupixent for nasal polyps. He feels his breathing is improved. Continues on fluticasone nasal spray. No CP or SOB NATALI LEE MD [facility] [place],[address], [address], [facility] - [facility] 08/18/2024 13:42:10 02/18/2025 text/html Aravind Phelan is a 79-year-old male who presents for a follow-up evaluation of nasal polyps. The patient reports that he is still receiving DUPIXENT injections for the treatment of nasal polyps. He states that his breathing and sense of smell are good. Continues on FP nasal NATALI LEE MD 100 [facility],[address], [address], [facility] 02/18/2025 13:31:04
[2025-03-16 07:33] LABS: Anion Gap 14 (12-20); Blood Urea Nitrogen 30 mg/dL (9-16); Calcium 9.5 mg/dL (8.4-10.2); Carbon Dioxide 23 mmol/L (22-29); Chloride 117 mmol/L (96-108); Estimated Glomerular Filt Rate 44; Potassium 4.1 mmol/L (3.3-5.1); Sodium 150 mmol/L (135-145)
== END 2025-03-16 06:49 | disposition home or self-care (01) ==
LOC: HO.HSH2N 06:48
PROVIDERS: Visit Provider Internal Medicine Interventional Cardiology
DX: I10 Essential (primary) hypertension (principal)
CPT/HCPCS: 36415; 80048

== ENCOUNTER 2025-03-18 06:34 | Outpatient (REF) | payer MEDICARE, SELFPAY ==
[2025-03-18 07:13] LABS: Anion Gap 11 (12-20); Blood Urea Nitrogen 22 mg/dL (9-16); Calcium 8.8 mg/dL (8.4-10.2); Carbon Dioxide 24 mmol/L (22-29); Chloride 115 mmol/L (96-108); Estimated Glomerular Filt Rate 54; Potassium 3.8 mmol/L (3.3-5.1); Sodium 146 mmol/L (135-145)
--- OUTSIDE RECORDS SUMMARY | 2025-03-18 14:57 | XMS_ITS | Continuity of Care Document ---
Author Organization [place] - [facility], [facility] Address [address] [place] [address] Care Team Providers Care Vp Ancillary Name Role Phone FREDERICK LAMBERT Primary Care [...] By Organization Details Last Modified Time 02/18/2025 54649 The patient is advised to return for [...] Details Recorded Time Polyp of nasal cavity 266323966 Active 2018 Polyp of nasal cavity ; Note: Date Diagno sed: 019 3:53 PM (J33.0 ) Not Available [facility] 4 02:15:31 Nasal congestion 27074922 Active 2018 Nasal conges tion; Note: Date Diagno sed: 019 3:53 PM (R09.8 1) Not Available [facility] 4 02:14:16 Polyp of nasal sinus 47004827 Active 2018 Other polyp of sinus; Note: Date Diagno sed: 11/29/19 19 10:59 AM (J33.8 ) Not Available [facility] 4 02:14:07 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 879967997 Active 2023 NATALI WILSON MD [address] [place], [place] [address], [address] , [facility] 4 13:31:08 Deviated nasal septum 205563075 Active 2023 NATALI WILSON MD [address] [place], [place] [address], [address] , [facility] 4 13:31:12 Hypereosinoph ilic syndrome 070766030 Active 2023 NATALI WILSON MD [address] [place], [place] [address], [address] , [facility] - [facility] 4 13:31:18 Problem Notes None recorded. Procedures Surgical History Date Name Laterality Status Provider Name and Address Organization Details Recorded Time 02/19/20 25 JMSNasal/Sinus Endoscopy completed NATALI LEE MD [address], [place], [address], [place] - [facility] 02/18/2025 13:30:13 08/19/19 25 JMSNasal/Sinus Endoscopy completed NATALI LEE MD [address], [place], [address], [place] [facility] 08/18/2024 13:41:30 02/18/20 24 JMSNasal/Sinus Endoscopy completed NATALI LEE MD [address] [facility] [place], [place], [address], [place] [facility] 02/18/2024 13:31:02 total replacement of hip completed Eli Contreras [place] - [facility] 02/18/2025 13:13:46 Imaging Results None recorded. Procedure Notes None recorded. Medical Equipment None Reported. Allergies Allergen ID Allergen Name Allergen Category Reaction Reaction Severity Criticality Documentation Date Start Date Code Code System Note Provider Name and Address Organization Details Recorded Time 42336 Claritin medicatio n other Not available Not available 09/11/2023 86646 6 RxNorm React ion: unkno wn, unspe cifie d;; Not Available [facility] 4 00:48:26 88857 egg extract food,medi cation other Not available Not available 09/11/2023 33027 15 RxNorm React ion: unkno wn, unspe cifie d;; Not Available [facility] 4 00:48:35 64273 Dairy medicatio n other Not available Not available 09/11/2023 React ion: unkno wn, unspe cifie d;; Not Available [facility] 4 00:48:35 24652 Elavil medicatio n other Not available Not available 09/11/2023 76512 RxNorm React ion: unkno wn, unspe cifie d;; Not Available [facility] 4 00:48:41 57262 acetamino phen / oxycodone medicatio n other Not available Not available 09/11/2023 30479 3 RxNorm React ion: unkno wn, unspe cifie d;; Not Available [facility] 4 00:48:52 72161 Influenza medicatio n other Not available Not available 09/11/2023 React ion: unkno wn, unspe cifie d;; Not Available [facility] 4 00:48:52 73059 Triavil medicatio n other Not available Not available 09/11/2023 React ion: unkno wn, unspe cifie d;; Not Available [facility] 4 00:49:00 Medications Name Sig Start Date Stop Date Status Note LastModified by Organization Details LastModified Time amlodipin e 2.5 mg tablet Take 1 tablet every day by oral route. 02/18 completed Not Available Not Available Not Available amlodipin e 5 mg tablet active Medicati on ID: [id number] B rand Name: amlodipi ne Send Method: E-Prescr ibed Sub s Allowed: subs OK Medic ationGen ericName : amlodipi ne Not Available Not Available Not Available potassium chloride 20 mEq/15 mL oral liquid active Medicati on ID: [id number] B rand Name: potassiu m chloride Send [...] for inhalatio n active Medicati on ID: [id number] B rand Name: Advair Diskus S end Method: E-Prescr ibed Sub s Allowed: subs OK Medic ationGen ericName : Advair Diskus Not Available Not Available Not Available docusate sodium 100 mg capsule 2018 active Medicati on ID: [id number] B rand Name: docusate sodium S end Method: E-Prescr ibed Sub s Allowed: subs OK Medic ationGen ericName : docusate sodium Not Available Not Available Not Available hydrochlo rothiazid e 25 mg tablet active Medicati on ID: [id number] B rand Name: hydrochl orothiaz zak Send [...] 10 mg capsule active Medicati on ID: [id number] B rand Name: terazosi n Send Method: E-Prescr ibed Sub s Allowed: subs OK Medic ationGen ericName : terazosi n Not Available Not Available Not Available finasteri de 5 mg tablet active Medicati on ID: [id number] B rand Name: finaster zak Send Method: E-Prescr ibed Sub s Allowed: subs OK Medic ationGen ericName : finaster zak Not Available Not Available Not Available bisacodyl 5 mg tablet Take 1 tablet every day by oral route. active Not Available Not Available No t Available tiotropiu m bromide 18 mcg capsule with inhalatio n device active Medicati on ID: 612951 B rand Name: tiotropi um bromide Send Method: E-Prescr ibed Sub s Allowed: subs OK Medic ationGen ericName : tiotropi um bromide Not Available Not Available Not Available chlorhexi dine gluconate 0.12 % mouthwash active Medicati on ID: [id number] B rand Name: chlorhex idine gluconat e Send Method: E-Prescr ibed Sub s Allowed: subs OK Medic ationGen ericName : chlorhex idine gluconat e Not Available Not Available Not Available cholecalc iferol (vitamin D3) 25 mcg (1,000 unit) tablet active Medicati on ID: [id number] B rand Name: cholecal ciferol (vitamin D3) Send Method: E-Prescr ibed Sub s Allowed: subs OK Medic ationGen ericName : cholecal ciferol (vitamin D3) Not Available Not Available Not Available Symbicort 160 mcg-4.5 mcg/actua tion HFA aerosol inhaler 02/18 completed Medicati on ID: [id number] B rand Name: Symbicor t Send Method: E-Prescr ibed Sub s Allowed: subs OK Medic ationGen ericName : Symbicor t Not Available Not Available Not Available Nasal [place] (sodium chloride) 0.65 % aerosol active Medicati on ID: [id number] B rand Name: Nasal [place] (sodium chloride ) Send Method: E-Prescr ibed Sub s Allowed: subs OK Medic ationGen ericName : Nasal [place] (sodium chloride ) Not Available Not Available Not Available Flonase Allergy Relief 50 mcg/actua tion nasal spray,xavier pension active Medicati on ID: [id number] B rand Name: Flonase Allergy Relief S [...] ICD10 Code Diagnosis IMO Codes Diagnosis Note [id number] NATALI WILSON MD [facility] [address] [address] 02/18/2025 12:48:46 02/18/2025 13:29:07 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 613446187 J33.9 Deviated nasal septum 12 4720699 J34.2 Hypereosin ophilic syndrome 362936518 D72.119 Health Concerns Section Related Observation LastModified by Organization [facility] LastModified Time None Recorded Concern Status LastModified by Organization Details LastModified Time None Recorded Payers Encounter Date Sequence Insurance Name Policy Number Policy Castrejon Covered Member ID Castrejon Member ID Guarantor Name 02/18/2025 1 MEDICARE -MS: [employer] SERVICES Aravind Phelan [id number] 5 Aravind Phelan Notes Date Note Type [...] good. Continues on nasal NATALI LEE MD [address] [place] [address], [place], [address], [facility] 02/18/2025 13:31:04
--- OUTSIDE RECORDS SUMMARY | 2025-03-18 14:57 | XMS_ITS | Clinical Summary ---
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 Name Role Phone Unavailable Primary Care Provider [...] GAMBOA Comment: 1978: Admission for Depression to [facility]S [facility] BEDS AT [facility] Jun 23, 2011 Entered By: UZIEL MENDOZA Comment: lifelong problems with excessive worry, tension, etc History of traumatic brain injury 12/17/2024 Hyperlipidemia 12/17/2024 Impulse control disorder 12/17/2024 Overview (12/17/2024): Jun 29, 2011 Entered By: MILES BARCLAY Comment: R/o early Dementia Jul 20, 2011 Entered By: SIMA GAMBOA Comment: 05-12 to 3 COUNTS INCLUDE 234 BEDS AT [facility] W4U Ocular hypertension, bilateral 12/17/2024 Presence of [...] Description 02/04/2025 10:00 AM EDT Office Visit [facility] [address] [place] [address] Reji Gomez DMD 01/21/2025 8:15 AM EDT Office Visit [facility] [address] [place] [address] Amira Slater Dental plaque (Primary Dx); Dental calculus 12/17/2024 8:00 AM EDT Office Visit [facility] [address] [place], [place] [phone] DickReji gary DMD from Last 3 Months [...]
--- OUTSIDE RECORDS SUMMARY | 2025-03-18 14:58 | XMS_ITS | Encounter Summary ---
Author Organization [facility] Address [address] [facility] [address] [place] [address] Care Team Providers Care Automotive Window Tinter Name Role Phone Unavailable Primary Care Provider Unavailabl e Encounter Details Date Type Department Care Team (Late st Contact Info) Description 05/24/2023 [facility] [address] [place] [address] Reji Gomez, DMD [address] [place] [address] Social History Tobacco Use Types Packs/Day Years [...]
--- OUTSIDE RECORDS SUMMARY | 2025-03-18 14:58 | XMS_ITS | Data Portability ---
Author Organization [place] - [facility], Allergy Address [address] [address] Care Team Providers Care Production Editor Name Role Phone FREDERICK LAMBERT Primary Care [...] By Organization Details Last Modified Time 02/18/2025 94011 The patient is advised to return for [...] Details Recorded Time Polyp of nasal cavity 350295520 Active 2018 Polyp of nasal cavity ; Note: Date Diagno sed: 019 3:53 PM (J33.0 ) Not Available [facility] 4 02:15:31 Nasal congestion 80713081 Active 2018 Nasal conges tion; Note: Date Diagno sed: 019 3:53 PM (R09.8 1) Not Available [facility] 4 02:14:16 Polyp of nasal sinus 50786854 Active 2018 Other polyp of sinus; Note: Date Diagno sed: 11/29/19 19 10:59 AM (J33.8 ) Not Available [facility] 4 02:14:07 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 148580317 Active 2023 NATALI WILSON MD [facility] [address], [place], [address] , [place] - [facility] 13:31:08 Deviated nasal septum 726216073 Active 2023 NATALI WILSON MD 100 [facility],[place] [address], [place], [address] , [place] - [facility] 13:31:12 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 Procedures Surgical History Date Name Laterality Status Provider Name and Address Organization Details Recorded Time 02/19/20 25 JMSNasal/Sinus Endoscopy completed NATALI LEE MD [address] [place] [address],[address], [address], [facility] - [facility] 02/18/2025 13:30:13 08/19/19 25 JMSNasal/Sinus Endoscopy completed NATALI LEE MD [address] [place] [address],[address], [address], [place] - [facility] 08/18/2024 13:41:30 02/18/20 24 JMSNasal/Sinus Endoscopy completed NATALI LEE MD [address] [place] [address],[address], [address], [place] - [facility] 02/18/2024 13:31:02 total replacement of hip completed Eli Contreras [place] - [facility] 02/18/2025 13:13:46 Imaging Results None recorded. Procedure Notes None recorded. Medical Equipment None Reported. Allergies Allergen ID Allergen Name Allergen Category Reaction Reaction Severity Criticality Documentation Date Start Date Code Code System Note Provider Name and Address Organization Details Recorded Time 78911 Claritin medicatio n other Not available Not available 09/11/202354277 6 RxNorm React ion: unkno wn, unspe cifie d;; Not Available [facility] 4 00:48:26 77119 egg extract food,medi cation other Not available Not available 09/11/2023 96365 15 RxNorm React ion: unkno wn, unspe cifie d;; Not Available [facility] 4 00:48:35 34327 Dairy medicatio n other Not available Not available 09/11/2023 React ion: unkno wn, unspe cifie d;; Not Available [facility] 4 00:48:35 34493 Elavil medicatio n other Not available Not available 09/11/2023 59756 RxNorm React ion: unkno wn, unspe cifie d;; Not Available [facility] 4 00:48:41 94495 acetamino phen / oxycodone medicatio n other Not available Not available 09/11/2023 04151 3 RxNorm React ion: unkno wn, unspe cifie d;; Not Available [facility] 4 00:48:52 68916 Influenza medicatio n other Not available Not available 09/11/2023 React ion: unkno wn, unspe cifie d;; Not Available [facility] 4 00:48:52 81948 Triavil medicatio n other Not available Not available 09/11/2023 React ion: unkno wn, unspe cifie d;; Not Available [facility] 4 00:49:00 Medications Name Sig Start Date Stop Date Status Note LastModified by Organization Details LastModified Time amlodipin e 2.5 mg tablet Take 1 tablet every day by oral route. 02/18 completed Not Available Not Available Not Available amlodipin e 5 mg tablet active Medicati on ID: [id number] B rand Name: amlodipi ne Send Method: E-Prescr ibed Sub s Allowed: subs OK Medic ationGen ericName : amlodipi ne Not Available Not Available Not Available potassium chloride 20 mEq/15 mL oral liquid active Medicati on ID: [id number] B rand Name: ieshaanel m chloride Send [...] for inhalatio n active Medicati on ID: [id number] B rand Name: Advair Diskus S end Method: E-Prescr ibed Sub s Allowed: subs OK Medic ationGen ericName : Advair Diskus Not Available Not Available Not Available docusate sodium 100 mg capsule 2018 active Medicati on ID: [id number] B rand Name: docusate sodium S end Method: E-Prescr ibed Sub s Allowed: subs OK Medic ationGen ericName : docusate sodium Not Available Not Available Not Available hydrochlo rothiazid e 25 mg tablet active Medicati on ID: [id number] B rand Name: hydrochl orothiaz zak Send [...] 10 mg capsule active Medicati on ID: 446653 B rand Name: terazosi n Send Method: E-Prescr ibed Sub s Allowed: subs OK Medic ationGen ericName : terazosi n Not Available Not Available Not Available finasteri de 5 mg tablet active Medicati on ID: 596960 B rand Name: finaster zak Send Method: E-Prescr ibed Sub s Allowed: subs OK Medic ationGen ericName : finaster zak Not Available Not Available Not Available bisacodyl 5 mg tablet Take 1 tablet every day by oral route. active Not Available Not Available No t Available tiotropiu m bromide 18 mcg capsule with inhalatio n device active Medicati on ID: [id number] B rand Name: tiotropi um bromide Send Method: E-Prescr ibed Sub s Allowed: subs OK Medic ationGen ericName : tiotropi um bromide Not Available Not Available Not Available chlorhexi dine gluconate 0.12 % mouthwash active Medicati on ID: 705038 B rand Name: chlorhex idine gluconat e Send Method: E-Prescr ibed Sub s Allowed: subs OK Medic ationGen ericName : chlorhex idine gluconat e Not Available Not Available Not Available cholecalc iferol (vitamin D3) 25 mcg (1,000 unit) tablet active Medicati on ID: 310792 B rand Name: cholecal ciferol (vitamin D3) Send Method: E-Prescr ibed Sub s Allowed: subs OK Medic ationGen ericName : cholecal ciferol (vitamin D3) Not Available Not Available Not Available Symbicort 160 mcg-4.5 mcg/actua tion HFA aerosol inhaler 02/18 completed Medicati on ID: [id number] B rand Name: Symbicor t Send Method: E-Prescr ibed Sub s Allowed: subs OK Medic ationGen ericName : Symbicor t Not Available Not Available Not Available Nasal [place] (sodium chloride) 0.65 % aerosol active Medicati on ID: [id number] B rand Name: Nasal [place] (sodium chloride ) Send Method: E-Prescr ibed Sub s Allowed: subs OK Medic ationGen ericName : Nasal [place] (sodium chloride ) Not Available Not Available Not Available Flonase Allergy Relief 50 mcg/actua tion nasal spray,xavier pension active Medicati on ID: [id number] B rand Name: Flonase Allergy Relief S [...] - [facility] 08/18/2024 13:39:11 Date Recorded Body height Body mass index (BMI) Body weight Provider Name and Address Organization Details Last Updated DateTime 02/18/2024 170.18 cm 31.3 kg/m2 16202.47 g Yanira Buckner [place] - [facility] 02/18/2024 13:07:17 Social History None recorded. Functional Status None recorded. Mental Status None recorded. Family History Nothing Reported. Medical History Condition Response Nasal or Sinus Problems Y GERD/Reflux Y Dementia Y Hypertension Y Nasal polyps Y Asthma Y Past Encounters Encounter ID Performer Location Encounter Start Date Encounter Closed Date Diagnosis/Indication Diagnosis SNOMED-CT Code Diagnosis ICD10 Code Diagnosis IMO Codes Diagnosis Note [id number] NATALI WILSON MD [facility] [address] [address] 02/18/2024 12:50:09 02/18/2024 13:29:59 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 499870945 J33.9 Deviated nasal septum 12 8817753 J34.2 Hypereosin ophilic syndrome 049033110 D72.119 [id number] NATALI WILSON MD [facility] [address] [address] 08/18/2024 13:32:37 08/18/2024 13:52:01 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 284589253 J33.9 Deviated nasal septum 12 7879581 J34.2 Hypereosin ophilic syndrome 962967878 D72.119 [id number] NATALI WILSON MD [facility] [address] [address] 02/18/2025 12:48:46 02/18/2025 13:29:07 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 018866910 J33.9 Deviated nasal septum 12 3021011 J34.2 Hypereosin ophilic syndrome 574148740 D72.119 Health Concerns Section Related Observation LastModified by Organization Detai ls LastModified Time None Recorded Concern Status LastModified by Organization Details LastModified Time None Recorded Advance Directives Directive None Recorded Payers Insurance Date Sequence Insurance Name Policy Number Policy Castrejon Covered Member ID Castrejon Member ID Guarantor Name 02/24/2025 1 MEDICARE B-CO: [employer] Aravind Phelan [id number] 5 Aravind Phelan Notes Date Note Type Note Provider Name and Address Organization Details Recorded Time 02/18/2024 text/html ROS as noted in the HPI Hx of nasal polyps and elevated eosinophils. Previously recommended Dupixent through [facility] homeHe has a history of dementia, hypertension and asthma. He has been on Dupixent injections for several months. Notes improvement in his nasal breathing. Reports recent cataract surgery. NATALI LEE MD 100 [facility],[address], [address], [facility] - [facility] 02/18/2024 13:32:00 08/18/2024 text/html Patient presently on Dupixent for nasal polyps. He feels his breathing is improved. Continues on fluticasone nasal spray. No CP or SOB NATALI LEE MD [facility] [place],[address], [address], [facility] - [facility] 08/18/2024 13:42:10 02/18/2025 text/html Aravind Phelan is a 79-year-old male who presents for a follow-up evaluation of nasal polyps. The patient reports that he is still receiving DUPIXENT injections for the treatment of nasal polyps. He states that his breathing and sense of smell are good. Continues on FP nasal NATALI LEE MD 100 [facility],[address], [address], [facility] 02/18/2025 13:31:04
--- OUTSIDE RECORDS SUMMARY | 2025-03-18 14:58 | XMS_ITS | Encounter Summary ---
Author Organization [employer] Address 75 [facility] [address]t [place] [address] Care Team Providers Care Flake Miller [employer] Name Role Phone Unavailable Primary Care Provider Unavailabl e Encounter Details Date Type Department Care Team (Late st Contact Info) Description 05/24/2023 Abstract [facility] DENTAL [address] [place] [address] Reji Gomez, DMD [address] [place] [address] Social History Tobacco Use Types Packs/Day Years [...]
--- OUTSIDE RECORDS SUMMARY | 2025-03-18 14:58 | XMS_ITS | Encounter Summary ---
Author Organization [facility] Address 75 [facility] 7t [place] [address] Care Team Providers Care Mechanotherapist Name Role Phone Unavailable Primary Care Provider Unavailabl e Encounter Details Date Type Department Care Team (Late st Contact Info) Description 05/24/2023 Abstract [facility] [address] [place] [address] Reji Gomez, DMD [address] [place] [address] Social History Tobacco Use Types Packs/Day Years [...]
== END 2025-03-18 06:35 | disposition home or self-care (01) ==
LOC: HO.HSH2N 06:34
PROVIDERS: Visit Provider Internal Medicine Interventional Cardiology
DX: I10 Essential (primary) hypertension (principal)
CPT/HCPCS: 36415; 80048

== ENCOUNTER 2025-03-23 18:20 | Outpatient (REF) | payer MEDICARE, SELFPAY ==
--- OUTSIDE RECORDS SUMMARY | 2025-03-23 20:35 | XMS_ITS | Encounter Summary ---
Author Organization [facility] Address 75 [facility] 7t [place] [address] Care Team Providers Care Client Portfolio Manager Name Role Phone Unavailable Primary Care Provider Unavailabl e Encounter Details Date Type Department Care Team (Late st Contact Info) Description 05/24/2023 Abstract [facility] DENTAL [address] [place] [address] Reji Gomez, DMD [address] [place] [address] Social History Tobacco Use Types Packs/Day Years [...]
--- OUTSIDE RECORDS SUMMARY | 2025-03-23 20:35 | XMS_ITS | Data Portability ---
Author Organization [place] - [facility], Allergy Address [address] [address] Care Team Providers Care Parcel Post Truck Driver Name Role Phone FREDERICK LAMBERT Primary Care Provider [phone] Assessment Encounter Date Assessment Date Assessment LastModified [...] By Organization Details Last Modified Time 02/18/2025 35336 The patient is advised to return for [...] Details Recorded Time Polyp of nasal cavity 149564316 Active 2018 Polyp of nasal cavity ; Note: Date Diagno sed: 019 3:53 PM (J33.0 ) Not Available [facility] 4 02:15:31 Nasal congestion 91563296 Active 2018 Nasal conges tion; Note: Date Diagno sed: 019 3:53 PM (R09.8 1) Not Available [facility] 4 02:14:16 Polyp of nasal sinus 64355879 Active 2018 Other polyp of sinus; Note: Date Diagno sed: 11/29/19 19 10:59 AM (J33.8 ) Not Available [facility] 4 02:14:07 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 973951767 Active 2023 NATALI WILSON MD [address] [facility] [place] [address], [place], [address] , [place] - [facility] 13:31:08 Deviated nasal septum 434459393 Active 2023 NATALI WILSON MD 100 [facility],[place] [address], [place], [address] , [place] [facility] 13:31:12 Hypereosinoph ilic syndrome 472409080 Active 2023 NATALI WILSON MD 100 [facility],[place] [address], [place], [address] , [place] - [facility] [place] 13:31:18 Problem Notes None recorded. Procedures Surgical History Date Name Laterality Status Provider Name and Address Organization Details Recorded Time 02/19/20 25 JMSNasal/Sinus Endoscopy completed NATALI LEE MD [address] [place] [address],[address], [address], [facility] - [facility] 02/18/2025 13:30:13 08/19/19 25 JMSNasal/Sinus Endoscopy completed NATALI LEE MD [address] [place] [address],[address], [address], [place] [facility] 08/18/2024 13:41:30 02/18/20 24 JMSNasal/Sinus Endoscopy completed NATALI LEE MD [address] [place] [address],[address], [address], [place] [facility] 02/18/2024 13:31:02 total replacement of hip completed Eli Contreras [place] - [facility] [place] 02/18/2025 13:13:46 Imaging Results None recorded. Procedure Notes None recorded. Medical Equipment None Reported. Allergies Allergen ID Allergen Name Allergen Category Reaction Reaction Severity Criticality Documentation Date Start Date Code Code System Note Provider Name and Address Organization Details Recorded Time 46598 Claritin medicatio n other Not available Not available 09/11/202328845 6 RxNorm React ion: unkno wn, unspe cifie d;; Not Available [facility] 4 00:48:26 93392 egg extract food,medi cation other Not available Not available 09/11/2023 90949 15 RxNorm React ion: unkno wn, unspe cifie d;; Not Available [facility] 4 00:48:35 23628 Dairy medicatio n other Not available Not available 09/11/2023 React ion: unkno wn, unspe cifie d;; Not Available [facility] 4 00:48:35 53345 Elavil medicatio n other Not available Not available 09/11/2023 70008 RxNorm React ion: unkno wn, unspe cifie d;; Not Available [facility] 4 00:48:41 02420 acetamino phen / oxycodone medicatio n other Not available Not available 09/11/2023 62701 3 RxNorm React ion: unkno wn, unspe cifie d;; Not Available [facility] 4 00:48:52 84248 Influenza medicatio n other Not available Not available 09/11/2023 React ion: unkno wn, unspe cifie d;; Not Available [facility] 4 00:48:52 97829 Triavil medicatio n other Not available Not available 09/11/2023 React ion: unkno wn, unspe cifie d;; Not Available [facility] 4 00:49:00 Medications Name Sig Start Date Stop Date Status Note LastModified by Organization Details LastModified Time amlodipin e 2.5 mg tablet Take 1 tablet every day by oral route. 02/18 completed Not Available Not Available Not Available amlodipin e 5 mg tablet active Medicati on ID: 824881 B rand Name: amlodipi ne Send Method: E-Prescr ibed Sub s Allowed: subs OK Medic ationGen ericName : amlodipi ne Not Available Not Available Not Available potassium chloride 20 mEq/15 mL oral liquid active Medicati on ID: 903440 B rand Name: ieshaanel m chloride Send [...] for inhalatio n active Medicati on ID: [id number] B rand Name: Advair Diskus S end Method: E-Prescr ibed Sub s Allowed: subs OK Medic ationGen ericName : Advair Diskus Not Available Not Available Not Available docusate sodium 100 mg capsule 2018 active Medicati on ID: [id number] B rand Name: docusate sodium S end Method: E-Prescr ibed Sub s Allowed: subs OK Medic ationGen ericName : docusate sodium Not Available Not Available Not Available hydrochlo rothiazid e 25 mg tablet active Medicati on ID: [id number] B rand Name: hydrochl orothiaz zak Send [...] 10 mg capsule active Medicati on ID: 270887 B rand Name: terazosi n Send Method: E-Prescr ibed Sub s Allowed: subs OK Medic ationGen ericName : terazosi n Not Available Not Available Not Available finasteri de 5 mg tablet active Medicati on ID: 705381 B rand Name: finaster zak Send Method: E-Prescr ibed Sub s Allowed: subs OK Medic ationGen ericName : finaster zak Not Available Not Available Not Available bisacodyl 5 mg tablet Take 1 tablet every day by oral route. active Not Available Not Available No t Available tiotropiu m bromide 18 mcg capsule with inhalatio n device active Medicati on ID: [id number] B rand Name: tiotropi um bromide Send Method: E-Prescr ibed Sub s Allowed: subs OK Medic ationGen ericName : tiotropi um bromide Not Available Not Available Not Available chlorhexi dine gluconate 0.12 % mouthwash active Medicati on ID: 470229 B rand Name: chlorhex idine gluconat e Send Method: E-Prescr ibed Sub s Allowed: subs OK Medic ationGen ericName : chlorhex idine gluconat e Not Available Not Available Not Available cholecalc iferol (vitamin D3) 25 mcg (1,000 unit) tablet active Medicati on ID: 105065 B rand Name: cholecal ciferol (vitamin D3) Send Method: E-Prescr ibed Sub s Allowed: subs OK Medic ationGen ericName : cholecal ciferol (vitamin D3) Not Available Not Available Not Available Symbicort 160 mcg-4.5 mcg/actua tion HFA aerosol inhaler 02/18 completed Medicati on ID: [id number] B rand Name: Symbicor t Send Method: E-Prescr ibed Sub s Allowed: subs OK Medic ationGen ericName : Symbicor t Not Available Not Available Not Available Nasal [place] (sodium chloride) 0.65 % aerosol active Medicati on ID: 533333 B rand Name: Nasal [place] (sodium chloride ) Send Method: E-Prescr ibed Sub s Allowed: subs OK Medic ationGen ericName : Nasal [place] (sodium chloride ) Not Available Not Available Not Available Flonase Allergy Relief 50 mcg/actua tion nasal spray,xavier pension active Medicati on ID: [id number] B rand Name: Flonase Allergy Relief S [...] - [facility] [place] 08/18/2024 13:39:11 Date Recorded Body height Body mass index (BMI) Body weight Provider Name and Address Organization Details Last Updated DateTime 02/18/2024 170.18 cm 31.3 kg/m2 60567.47 g Yanira Buckner [place] - [facility] [place] 02/18/2024 13:07:17 Social History None recorded. Functional Status None recorded. Mental Status None recorded. Family History Nothing Reported. Medical History Condition Response Nasal or Sinus Problems Y GERD/Reflux Y Dementia Y Hypertension Y Nasal polyps Y Asthma Y Past Encounters Encounter ID Performer Location Encounter Start Date Encounter Closed Date Diagnosis/Indication Diagnosis SNOMED-CT Code Diagnosis ICD10 Code Diagnosis IMO Codes Diagnosis Note [id number] NATALI WILSON MD [facility] [address] [address] 02/18/2024 12:50:09 02/18/2024 13:29:59 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 916120284 J33.9 Deviated nasal septum 12 6796902 J34.2 Hypereosin ophilic syndrome 782080287 D72.119 [id number] NATALI WILSON MD [facility] [address] [address] 08/18/2024 13:32:37 08/18/2024 13:52:01 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 250780336 J33.9 Deviated nasal septum 12 5014461 J34.2 Hypereosin ophilic syndrome 827748367 D72.119 [id number] NATALI WILSON MD [facility] [address] [address] 02/18/2025 12:48:46 02/18/2025 13:29:07 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 058598970 J33.9 Deviated nasal septum 12 7793193 J34.2 Hypereosin ophilic syndrome 113555232 D72.119 Health Concerns Section Related Observation LastModified by Organization Detai ls LastModified Time None Recorded Concern Status LastModified by Organization Details LastModified Time None Recorded Advance Directives Directive None Recorded Payers Insurance Date Sequence Insurance Name Policy Number Policy Castrejon Covered Member ID Castrejon Member ID Guarantor Name 02/24/2025 1 MEDICARE B-MI: [employer] Aravind Phelan [id number] 5 Aravind Phelan Notes Date Note Type Note Provider Name and Address Organization Details Recorded Time 02/18/2024 text/html ROS as noted in the HPI Hx of nasal polyps and elevated eosinophils. Previously recommended Dupixent through [facility] homeHe has a history of dementia, hypertension and asthma. He has been on Dupixent injections for several months. Notes improvement in his nasal breathing. Reports recent cataract surgery. NATALI LEE MD 100 [facility],[address], [address], [facility] - [facility] 02/18/2024 13:32:00 08/18/2024 text/html Patient presently on Dupixent for nasal polyps. He feels his breathing is improved. Continues on fluticasone nasal spray. No CP or SOB NATALI LEE MD [facility] [place],[address], [address], [facility] - [facility] 08/18/2024 13:42:10 02/18/2025 text/html Aravind Phelan is a 79-year-old male who presents for a follow-up evaluation of nasal polyps. The patient reports that he is still receiving DUPIXENT injections for the treatment of nasal polyps. He states that his breathing and sense of smell are good. Continues on FP nasal NATALI LEE MD 100 [facility],[address], [address], [facility] 02/18/2025 13:31:04
--- OUTSIDE RECORDS SUMMARY | 2025-03-23 20:35 | XMS_ITS | Encounter Summary ---
Author Organization [employer] Address 75 [facility] 7t [place] [address] Care Team Providers Care Leather Case Finisher Name Role Phone Unavailable Primary Care Provider Unavailabl e Encounter Details Date Type Department Care Team (Late st Contact Info) Description 05/24/2023 Abstract [facility] DENTAL [address] [place] [address] Reji Gomez, DMD [address] [place] [address] Social History Tobacco Use Types Packs/Day Years [...]
--- OUTSIDE RECORDS SUMMARY | 2025-03-23 20:35 | XMS_ITS | Encounter Summary ---
Author Organization E[employer] Address 75 [facility] 7t [place] [address] Care Team Providers Care Plans Examiner Name Role Phone Unavailable Primary Care Provider Unavailabl e Encounter Details Date Type Department Care Team (Late st Contact Info) Description 05/24/2023 Abstract [facility] DENTAL [address] [place] [address] Reji Gomez, DMD [address] [place] [address] Social History Tobacco Use Types Packs/Day Years [...]
--- OUTSIDE RECORDS SUMMARY | 2025-03-23 20:35 | XMS_ITS | Clinical Summary ---
Author Organization [employer] Address [address] [facility] 7t [place] [address] Care Team Providers Care Clinical Research Management Associate Name Role Phone Unavailable Primary Care Provider [...] 1978: Admission for Depression to [facility] Jun 23, 2011 Entered By: UZIEL MENDOZA Comment: lifelong problems with excessive worry, tension, etc History of traumatic brain injury 12/17/2024 Hyperlipidemia 12/17/2024 Impulse control disorder 12/17/2024 Overview (12/17/2024): Jun 29, 2011 Entered By: MILES BARCLAY Comment: R/o early Dementia Jul 20, 2011 Entered By: SIMA GAMBOA Comment: 05-12 to 3 [facility] W4U Ocular hypertension, bilateral 12/17/2024 [...] 02/04/2025 10:00 AM EDT Office Visit [facility] [address] [place] [address] Reji Gomez DMD 01/21/2025 8:15 AM EDT Office Visit [facility] [address] [place] [address] SlaterLucio hollidaysa Dental plaque (Primary Dx); Dental calculus from Last 3 Months Social History Tobacco [...] Dental calculus PROPHYLAXIS - ADULT Routine 01/21/2025 8:15 AM EDT Dental plaque Dental calculus TOPICAL APPLICATION OF FLUORIDE VARNISH Routine 01/21/2025 8:15 AM EDT INTRAORAL - COMPLETE SERIES OF RADIOGRAPHIC IMAGES Routine 08/02/2022 8:00 AM EDT from Last 3 Months or Most Recently Relevant to Health Maintenance
--- OUTSIDE RECORDS SUMMARY | 2025-03-23 20:35 | XMS_ITS | Continuity of Care Document ---
Author Organization [place] - [facility], [facility] Address [address] [place] [address] Care Team Providers Care Hay Buckler Name Role Phone FREDERICK LAMBERT Primary Care [...] By Organization Details Last Modified Time 02/18/2025 [id number] The patient is advised to return for [...] Details Recorded Time Polyp of nasal cavity 104955338 Active 2018 Polyp of nasal cavity ; Note: Date Diagno sed: 019 3:53 PM (J33.0 ) Not Available [facility] 4 02:15:31 Nasal congestion 88970612 Active 2018 Nasal conges tion; Note: Date Diagno sed: 019 3:53 PM (R09.8 1) Not Available [facility] 4 02:14:16 Polyp of nasal sinus 25809331 Active 2018 Other polyp of sinus; Note: Date Diagno sed: 11/29/19 19 10:59 AM (J33.8 ) Not Available [facility] 4 02:14:07 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 - [facility] 4 13:31:18 Problem Notes None recorded. Procedures Surgical History Date Name Laterality Status Provider Name and Address Organization Details Recorded Time 02/19/20 25 JMSNasal/Sinus Endoscopy completed NATALI LEE MD [address], [place], [address], [place] [facility] 02/18/2025 13:30:13 08/19/19 25 JMSNasal/Sinus Endoscopy completed NATALI LEE MD [address], [place], [address], [place] [facility] 08/18/2024 13:41:30 02/18/20 24 JMSNasal/Sinus Endoscopy completed NATALI LEE MD [address] [facility] [place], [place], [address], [place] [facility] 02/18/2024 13:31:02 total replacement of hip completed Eli Contreras [place] - [facility] 02/18/2025 13:13:46 Imaging Results None recorded. Procedure Notes None recorded. Medical Equipment None Reported. Allergies Allergen ID Allergen Name Allergen Category Reaction Reaction Severity Criticality Documentation Date Start Date Code Code System Note Provider Name and Address Organization Details Recorded Time 97973 Claritin medicatio n other Not available Not available 09/11/2023 66581 6 RxNorm React ion: unkno wn, unspe cifie d;; Not Available [facility] 4 00:48:26 37390 egg extract food,medi cation other Not available Not available 09/11/2023 20785 15 RxNorm React ion: unkno wn, unspe cifie d;; Not Available [facility] 4 00:48:35 66446 Dairy medicatio n other Not available Not available 09/11/2023 React ion: unkno wn, unspe cifie d;; Not Available [facility] 4 00:48:35 42179 Elavil medicatio n other Not available Not available 09/11/2023 67717 RxNorm React ion: unkno wn, unspe cifie d;; Not Available [facility] 4 00:48:41 11739 acetamino phen / oxycodone medicatio n other Not available Not available 09/11/2023 01232 3 RxNorm React ion: unkno wn, unspe cifie d;; Not Available [facility] 4 00:48:52 86251 Influenza medicatio n other Not available Not available 09/11/2023 React ion: unkno wn, unspe cifie d;; Not Available [facility] 4 00:48:52 67578 Triavil medicatio n other Not available Not available 09/11/2023 React ion: unkno wn, unspe cifie d;; Not Available [facility] 4 00:49:00 Medications Name Sig Start Date Stop Date Status Note LastModified by Organization Details LastModified Time amlodipin e 2.5 mg tablet Take 1 tablet every day by oral route. 02/18 completed Not Available Not Available Not Available amlodipin e 5 mg tablet active Medicati on ID: [id number] B rand Name: amlodipi ne Send Method: E-Prescr ibed Sub s Allowed: subs OK Medic ationGen ericName : amlodipi ne Not Available Not Available Not Available potassium chloride 20 mEq/15 mL oral liquid active Medicati on ID: [id number] B rand Name: potassiu m chloride Send [...] for inhalatio n active Medicati on ID: [id number] B rand Name: Advair Diskus S end Method: E-Prescr ibed Sub s Allowed: subs OK Medic ationGen ericName : Advair Diskus Not Available Not Available Not Available docusate sodium 100 mg capsule 2018 active Medicati on ID: [id number] B rand Name: docusate sodium S end Method: E-Prescr ibed Sub s Allowed: subs OK Medic ationGen ericName : docusate sodium Not Available Not Available Not Available hydrochlo rothiazid e 25 mg tablet active Medicati on ID: [id number] B rand Name: hydrochl orothiaz zak Send [...] 10 mg capsule active Medicati on ID: [id number] B rand Name: terazosi n Send Method: E-Prescr ibed Sub s Allowed: subs OK Medic ationGen ericName : terazosi n Not Available Not Available Not Available finasteri de 5 mg tablet active Medicati on ID: [id number] B rand Name: finaster zak Send Method: E-Prescr ibed Sub s Allowed: subs OK Medic ationGen ericName : finaster zak Not Available Not Available Not Available bisacodyl 5 mg tablet Take 1 tablet every day by oral route. active Not Available Not Available No t Available tiotropiu m bromide 18 mcg capsule with inhalatio n device active Medicati on ID: 202714 B rand Name: tiotropi um bromide Send Method: E-Prescr ibed Sub s Allowed: subs OK Medic ationGen ericName : tiotropi um bromide Not Available Not Available Not Available chlorhexi dine gluconate 0.12 % mouthwash active Medicati on ID: [id number] B rand Name: chlorhex idine gluconat e Send Method: E-Prescr ibed Sub s Allowed: subs OK Medic ationGen ericName : chlorhex idine gluconat e Not Available Not Available Not Available cholecalc iferol (vitamin D3) 25 mcg (1,000 unit) tablet active Medicati on ID: [id number] B rand Name: cholecal ciferol (vitamin D3) Send Method: E-Prescr ibed Sub s Allowed: subs OK Medic ationGen ericName : cholecal ciferol (vitamin D3) Not Available Not Available Not Available Symbicort 160 mcg-4.5 mcg/actua tion HFA aerosol inhaler 02/18 completed Medicati on ID: [id number] B rand Name: Symbicor t Send Method: E-Prescr ibed Sub s Allowed: subs OK Medic ationGen ericName : Symbicor t Not Available Not Available Not Available Nasal [place] (sodium chloride) 0.65 % aerosol active Medicati on ID: [id number] B rand Name: Nasal [place] (sodium chloride ) Send Method: E-Prescr ibed Sub s Allowed: subs OK Medic ationGen ericName : Nasal [place] (sodium chloride ) Not Available Not Available Not Available Flonase Allergy Relief 50 mcg/actua tion nasal spray,xavier pension active Medicati on ID: [id number] B rand Name: Flonase Allergy Relief S [...] ICD10 Code Diagnosis IMO Codes Diagnosis Note [id number] NATALI WILSON MD [facility] of [address] [address] 02/18/2025 12:48:46 02/18/2025 13:29:07 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 619332789 J33.9 Deviated nasal septum 12 9071561 J34.2 Hypereosin ophilic syndrome 793541838 D72.119 Health Concerns Section Related Observation LastModified by Organization Detlaurel leigh LastModified Time None Recorded Concern Status LastModified by Organization Details LastModified Time None Recorded Payers Encounter Date Sequence Insurance Name Policy Number Policy Castrejon Covered Member ID Castrejon Member ID Guarantor Name 02/18/2025 1 MEDICARE -[place]: [employer] Aravind Phelan [id number] 5 Aravind Phelan Notes Date Note Type [...] good. Continues on nasal NATALI LEE MD [address] [place] [address], [place], [address], [facility] 02/18/2025 13:31:04
== END 2025-03-23 18:21 | disposition home or self-care (01) ==
LOC: HO.HSH2N 18:20
PROVIDERS: Visit Provider Internal Medicine
DX: N39.0 Urinary tract infection, site not specified (principal)
CPT/HCPCS: 87086

== ENCOUNTER 2025-04-08 05:57 | Outpatient (REF) | payer MEDICARE, SELFPAY ==
[2025-04-08 06:01] LABS: MANUAL DIFF FLAG NO
--- OUTSIDE RECORDS SUMMARY | 2025-04-08 06:01 | XMS_ITS | Encounter Summary ---
Author Organization [employer] Address [address] [facility] 7t [place] [address] Care Team Providers Care Cook Sauce Name Role Phone Unavailable Primary Care Provider Unavailabl e Encounter Details Date Type Department Care Team (Late st Contact Info) Description 05/24/2023 Abstract [facility] [address] [place] [address] Reji Gomez, DMD [address] [place] [address] Social History Tobacco Use Types Packs/Day Years [...]
--- OUTSIDE RECORDS SUMMARY | 2025-04-08 06:01 | XMS_ITS ---
Author Organization Unknown ENCOUNTERS Encounter Performer Location Date Diagnosis Diagnosis Status Emergency Elx Sciaruto [facility] [address] [place] [id number] XLTC Pre Admit Generic ED Physician [facility] [address] [place] [id number] *Note: Encounters from your own facility or health system may be excluded. Allergies, Adverse Reactions, Alerts Allergen Type Severity Identification Date Medications Name Date Quantity Days Supplied GPI Number
--- OUTSIDE RECORDS SUMMARY | 2025-04-08 06:01 | XMS_ITS | Continuity of Care Document ---
Author Organization [place] - [facility], [facility] Address [address] [place] [address] Care Team Providers Care Can Sealer Name Role Phone FREDERICK LAMBERT Primary Care [...] By Organization Details Last Modified Time 02/18/2025 42933 The patient is advised to return for [...] Details Recorded Time Polyp of nasal cavity 038810479 Active 2018 Polyp of nasal cavity ; Note: Date Diagno sed: 019 3:53 PM (J33.0 ) Not Available [facility] 4 02:15:31 Nasal congestion 26192408 Active 2018 Nasal conges tion; Note: Date Diagno sed: 019 3:53 PM (R09.8 1) Not Available [facility] 4 02:14:16 Polyp of nasal sinus 90339213 Active 2018 Other polyp of sinus; Note: Date Diagno sed: 11/29/19 19 10:59 AM (J33.8 ) Not Available [facility] 4 02:14:07 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 750674975 Active 2023 NATALI WILSON MD [address] [place], [place] [address], [address] , [facility] 4 13:31:08 Deviated nasal septum 217143246 Active 2023 NATALI WILSON MD [address] [place], [place] [address], [address] , [facility] 4 13:31:12 Hypereosinoph ilic syndrome 127725613 Active 2023 NATALI WILSON MD [address] [place], [place] [address], [address] , [facility] - [facility] 4 13:31:18 Problem Notes None recorded. Procedures Surgical History Date Name Laterality Status Provider Name and Address Organization Details Recorded Time 02/19/20 25 JMSNasal/Sinus Endoscopy completed NATALI LEE MD [address], [place], [address], [place] [facility] 02/18/2025 13:30:13 08/19/19 25 JMSNasal/Sinus Endoscopy completed NATALI LEE MD [address], [place], [address], [place] [facility] 08/18/2024 13:41:30 02/18/20 24 JMSNasal/Sinus Endoscopy completed NATALI LEE MD [address] [facility] [place],[address], [place], [address], [place] [facility] 02/18/2024 13:31:02 total replacement of hip completed Eli Contreras [place] - [facility] 02/18/2025 13:13:46 Imaging Results None recorded. Procedure Notes None recorded. Medical Equipment None Reported. Allergies Allergen ID Allergen Name Allergen Category Reaction Reaction Severity Criticality Documentation Date Start Date Code Code System Note Provider Name and Address Organization Details Recorded Time 98214 Claritin medicatio n other Not available Not available 09/11/2023 46902 6 RxNorm React ion: unkno wn, unspe cifie d;; Not Available [facility] 4 00:48:26 81652 egg extract food,medi cation other Not available Not available 09/11/2023 84139 15 RxNorm React ion: unkno wn, unspe cifie d;; Not Available [facility] 4 00:48:35 14359 Dairy medicatio n other Not available Not available 09/11/2023 React ion: unkno wn, unspe cifie d;; Not Available [facility] 4 00:48:35 00346 Elavil medicatio n other Not available Not available 09/11/2023 12249 RxNorm React ion: unkno wn, unspe cifie d;; Not Available [facility] 4 00:48:41 96136 acetamino phen / oxycodone medicatio n other Not available Not available 09/11/2023 06991 3 RxNorm React ion: unkno wn, unspe cifie d;; Not Available [facility] 4 00:48:52 22604 Influenza medicatio n other Not available Not available 09/11/2023 React ion: unkno wn, unspe cifie d;; Not Available [facility] 4 00:48:52 58319 Triavil medicatio n other Not available Not available 09/11/2023 React ion: unkno wn, unspe cifie d;; Not Available [facility] 4 00:49:00 Medications Name Sig Start Date Stop Date Status Note LastModified by Organization Details LastModified Time amlodipin e 2.5 mg tablet Take 1 tablet every day by oral route. 02/18 completed Not Available Not Available Not Available amlodipin e 5 mg tablet active Medicati on ID: [id number] B rand Name: amlodipi ne Send Method: E-Prescr ibed Sub s Allowed: subs OK Medic ationGen ericName : amlodipi ne Not Available Not Available Not Available potassium chloride 20 mEq/15 mL oral liquid active Medicati on ID: [id number] B rand Name: potassiu m chloride Send [...] for inhalatio n active Medicati on ID: 209690 B rand Name: Advair Diskus S end Method: E-Prescr ibed Sub s Allowed: subs OK Medic ationGen ericName : Advair Diskus Not Available Not Available Not Available docusate sodium 100 mg capsule 2018 active Medicati on ID: [id number] B rand Name: docusate sodium S end Method: E-Prescr ibed Sub s Allowed: subs OK Medic ationGen ericName : docusate sodium Not Available Not Available Not Available hydrochlo rothiazid e 25 mg tablet active Medicati on ID: [id number] B rand Name: hydrochl orothiaz zak Send [...] 10 mg capsule active Medicati on ID: [id number] B rand Name: terazosi n Send Method: E-Prescr ibed Sub s Allowed: subs OK Medic ationGen ericName : terazosi n Not Available Not Available Not Available finasteri de 5 mg tablet active Medicati on ID: 978846 B rand Name: finaster zak Send Method: E-Prescr ibed Sub s Allowed: subs OK Medic ationGen ericName : finaster zak Not Available Not Available Not Available bisacodyl 5 mg tablet Take 1 tablet every day by oral route. active Not Available Not Available No t Available tiotropiu m bromide 18 mcg capsule with inhalatio n device active Medicati on ID: 718929 B rand Name: tiotropi um bromide Send Method: E-Prescr ibed Sub s Allowed: subs OK Medic ationGen ericName : tiotropi um bromide Not Available Not Available Not Available chlorhexi dine gluconate 0.12 % mouthwash active Medicati on ID: 161163 B rand Name: chlorhex idine gluconat e Send Method: E-Prescr ibed Sub s Allowed: subs OK Medic ationGen ericName : chlorhex idine gluconat e Not Available Not Available Not Available cholecalc iferol (vitamin D3) 25 mcg (1,000 unit) tablet active Medicati on ID: [id number] B rand Name: cholecal ciferol (vitamin D3) Send Method: E-Prescr ibed Sub s Allowed: subs OK Medic ationGen ericName : cholecal ciferol (vitamin D3) Not Available Not Available Not Available Symbicort 160 mcg-4.5 mcg/actua tion HFA aerosol inhaler 02/18 completed Medicati on ID: [id number] B rand Name: Symbicor t Send Method: E-Prescr ibed Sub s Allowed: subs OK Medic ationGen ericName : Symbicor t Not Available Not Available Not Available Nasal [place] (sodium chloride) 0.65 % aerosol active Medicati on ID: [id number] B rand Name: Nasal [place] (sodium chloride ) Send Method: E-Prescr ibed Sub s Allowed: subs OK Medic ationGen ericName : Nasal [place] (sodium chloride ) Not Available Not Available Not Available Flonase Allergy Relief 50 mcg/actua tion nasal spray,xavier pension active Medicati on ID: 705675 B rand Name: Flonase Allergy Relief S [...] ICD10 Code Diagnosis IMO Codes Diagnosis Note [id number] NATALI WILSON MD [facility] [address] [address] 02/18/2025 12:48:46 02/18/2025 13:29:07 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 818869892 J33.9 Deviated nasal septum 12 3749523 J34.2 Hypereosin ophilic syndrome 716473173 D72.119 Health Concerns Section Related Observation LastModified by Organization Detlaurel eligh LastModified Time None Recorded Concern Status LastModified by Organization Details LastModified Time None Recorded Payers Encounter Date Sequence Insurance Name Policy Number Policy Castrejon Covered Member ID Castrejon Member ID Guarantor Name 02/18/2025 1 MEDICARE -[place]: [employer] Aravind Phelan [id number] 5 Aravind Phelan Notes Date Note Type [...] good. Continues on nasal NATALI LEE MD [address] [place] [address], [place], [address], [facility] 02/18/2025 13:31:04
--- OUTSIDE RECORDS SUMMARY | 2025-04-08 06:01 | XMS_ITS | Clinical Summary ---
Author Organization [employer] Address [address] [facility] 7t [place] [address] Care Team Providers Care Sheet Cutter Name Role Phone Unavailable Primary Care Provider [...] GAMBOA Comment: 1978: Admission for Depression to [facility] Jun 23, 2011 Entered By: UZIEL MENDOZA Comment: lifelong problems with excessive worry, tension, etc History of traumatic brain injury 12/17/2024 Hyperlipidemia 12/17/2024 Impulse control disorder 12/17/2024 Overview (12/17/2024): Jun 29, 2011 Entered By: MILES BARCLAY Comment: R/o early Dementia Jul 20, 2011 Entered By: SIMA GAMBOA Comment: 05-12 to 3 [facility] W4U Ocular hypertension, bilateral 12/17/2024 Presence of [...] Encounters Date Type Department Care Team Description 04/01/2025 9:45 AM EST Office Visit [facility] [address] [place] [address] Samantha Sevilla 02/04/2025 10:00 AM EDT Office Visit [facility] [address] [place] [address] Reji Gomez DMD 01/21/2025 8:15 AM EDT Office Visit [facility] [address] [place] [address] Amira Slater Dental plaque (Primary Dx); Dental calculus from [...] 02/2025, 03/05/2024, Additional history exists Tobacco Screening 04/01/2026 04/01/2025 Zoster Vaccines Completed 09/27/2021, 07/12/2021 Pneumococcal Vaccine: [...] Procedure Name Priority Date/Time Associated Diagnosis Comments NO CHARGE VISIT Routine 04/01/2025 9:45 AM EST PERIODIC ORAL EVALUATION - ESTABLISHED PATIENT Routine [...]
--- OUTSIDE RECORDS SUMMARY | 2025-04-08 06:01 | XMS_ITS | Encounter Summary ---
Author Organization [employer] Address [address] [facility] 7t [place] [address] Care Team Providers Care Manager Cost Name Role Phone Unavailable Primary Care Provider Unavailabl e Encounter Details Date Type Department Care Team (Late st Contact Info) Description 05/24/2023 Abstract [facility] [address] [place] [address] Reji Gomez, DMD [address] [place] [address] Social History Tobacco Use Types Packs/Day Years [...]
--- OUTSIDE RECORDS SUMMARY | 2025-04-08 06:01 | XMS_ITS | Encounter Summary ---
Author Organization [employer] Address [address] [facility] [address]t [place] [address] Care Team Providers Care Pillow Cleaner Name Role Phone Unavailable Primary Care Provider Unavailabl e Encounter Details Date Type Department Care Team (Late st Contact Info) Description 05/24/2023 Abstract [facility] [address] [place] [address] Reji Gomez, DMD [address] [place] [address] Social History Tobacco Use Types Packs/Day Years [...]
--- OUTSIDE RECORDS SUMMARY | 2025-04-08 06:01 | XMS_ITS | Data Portability ---
Author Organization [place] - [facility], Allergy Address [address] [address] Care Team Providers Care Aluminum Container Tester Name Role Phone FREDERICK LAMBERT Primary Care [...] By Organization Details Last Modified Time 02/18/2025 66434 The patient is advised to return for [...] Details Recorded Time Polyp of nasal cavity 256482107 Active 2018 Polyp of nasal cavity ; Note: Date Diagno sed: 019 3:53 PM (J33.0 ) Not Available [facility] 4 02:15:31 Nasal congestion 95076755 Active 2018 Nasal conges tion; Note: Date Diagno sed: 019 3:53 PM (R09.8 1) Not Available [facility] 4 02:14:16 Polyp of nasal sinus 83938836 Active 2018 Other polyp of sinus; Note: Date Diagno sed: 11/29/19 19 10:59 AM (J33.8 ) Not Available [facility] 4 02:14:07 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 622211765 Active 2023 NATALI WILSON MD [address] [facility] [place] [address], [place], [address] , [place] - [facility] 13:31:08 Deviated nasal septum 731433169 Active 2023 NATALI WILSON MD 100 [facility],[place] [address], [place], [address] , [place] [facility] 13:31:12 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 Procedures Surgical History Date Name Laterality Status Provider Name and Address Organization Details Recorded Time 02/19/20 25 JMSNasal/Sinus Endoscopy completed NATALI LEE MD [address] [place] [address],[address], [address], [facility] - [facility] 02/18/2025 13:30:13 08/19/19 25 JMSNasal/Sinus Endoscopy completed NATALI LEE MD [address] [place] [address],[address], [address], [place] - [facility] 08/18/2024 13:41:30 02/18/20 24 JMSNasal/Sinus Endoscopy completed NATALI LEE MD [address] [place] [address],[address], [address], [place] [facility] 02/18/2024 13:31:02 total replacement of hip completed Eli Contreras [place] - [facility] [place] 02/18/2025 13:13:46 Imaging Results None recorded. Procedure Notes None recorded. Medical Equipment None Reported. Allergies Allergen ID Allergen Name Allergen Category Reaction Reaction Severity Criticality Documentation Date Start Date Code Code System Note Provider Name and Address Organization Details Recorded Time 40006 Claritin medicatio n other Not available Not available 09/11/202309647 6 RxNorm React ion: unkno wn, unspe cifie d;; Not Available [facility] 4 00:48:26 15214 egg extract food,medi cation other Not available Not available 09/11/2023 40288 15 RxNorm React ion: unkno wn, unspe cifie d;; Not Available [facility] 4 00:48:35 57300 Dairy medicatio n other Not available Not available 09/11/2023 React ion: unkno wn, unspe cifie d;; Not Available [facility] 4 00:48:35 12205 Elavil medicatio n other Not available Not available 09/11/2023 10004 RxNorm React ion: unkno wn, unspe cifie d;; Not Available [facility] 4 00:48:41 38000 acetamino phen / oxycodone medicatio n other Not available Not available 09/11/2023 39061 3 RxNorm React ion: unkno wn, unspe cifie d;; Not Available [facility] 4 00:48:52 01235 Influenza medicatio n other Not available Not available 09/11/2023 React ion: unkno wn, unspe cifie d;; Not Available [facility] 4 00:48:52 58462 Triavil medicatio n other Not available Not available 09/11/2023 React ion: unkno wn, unspe cifie d;; Not Available [facility] 4 00:49:00 Medications Name Sig Start Date Stop Date Status Note LastModified by Organization Details LastModified Time amlodipin e 2.5 mg tablet Take 1 tablet every day by oral route. 02/18 completed Not Available Not Available Not Available amlodipin e 5 mg tablet active Medicati on ID: [id number] B rand Name: amlodipi ne Send Method: E-Prescr ibed Sub s Allowed: subs OK Medic ationGen ericName : amlodipi ne Not Available Not Available Not Available potassium chloride 20 mEq/15 mL oral liquid active Medicati on ID: [id number] B rand Name: ieshaanel m chloride Send [...] for inhalatio n active Medicati on ID: [id number] B rand Name: Advair Diskus S end Method: E-Prescr ibed Sub s Allowed: subs OK Medic ationGen ericName : Advair Diskus Not Available Not Available Not Available docusate sodium 100 mg capsule 2018 active Medicati on ID: [id number] B rand Name: docusate sodium S end Method: E-Prescr ibed Sub s Allowed: subs OK Medic ationGen ericName : docusate sodium Not Available Not Available Not Available hydrochlo rothiazid e 25 mg tablet active Medicati on ID: [id number] B rand Name: hydrochl orothiaz zak Send [...] 10 mg capsule active Medicati on ID: [id number] B rand Name: terazosi n Send Method: E-Prescr ibed Sub s Allowed: subs OK Medic ationGen ericName : terazosi n Not Available Not Available Not Available finasteri de 5 mg tablet active Medicati on ID: [id number] B rand Name: finaster zak Send Method: E-Prescr ibed Sub s Allowed: subs OK Medic ationGen ericName : finaster zak Not Available Not Available Not Available bisacodyl 5 mg tablet Take 1 tablet every day by oral route. active Not Available Not Available No t Available tiotropiu m bromide 18 mcg capsule with inhalatio n device active Medicati on ID: [id number] B rand Name: tiotropi um bromide Send Method: E-Prescr ibed Sub s Allowed: subs OK Medic ationGen ericName : tiotropi um bromide Not Available Not Available Not Available chlorhexi dine gluconate 0.12 % mouthwash active Medicati on ID: [id number] B rand Name: chlorhex idine gluconat e Send Method: E-Prescr ibed Sub s Allowed: subs OK Medic ationGen ericName : chlorhex idine gluconat e Not Available Not Available Not Available cholecalc iferol (vitamin D3) 25 mcg (1,000 unit) tablet active Medicati on ID: [id number] B rand Name: cholecal ciferol (vitamin D3) Send Method: E-Prescr ibed Sub s Allowed: subs OK Medic ationGen ericName : cholecal ciferol (vitamin D3) Not Available Not Available Not Available Symbicort 160 mcg-4.5 mcg/actua tion HFA aerosol inhaler 02/18 completed Medicati on ID: [id number] B rand Name: Symbicor t Send Method: E-Prescr ibed Sub s Allowed: subs OK Medic ationGen ericName : Symbicor t Not Available Not Available Not Available Nasal [place] (sodium chloride) 0.65 % aerosol active Medicati on ID: [id number] B rand Name: Nasal [place] (sodium chloride ) Send Method: E-Prescr ibed Sub s Allowed: subs OK Medic ationGen ericName : Nasal [place] (sodium chloride ) Not Available Not Available Not Available Flonase Allergy Relief 50 mcg/actua tion nasal spray,xavier pension active Medicati on ID: [id number] B rand Name: Flonase Allergy Relief S [...] - [facility] [place] 08/18/2024 13:39:11 Date Recorded Body height Body mass index (BMI) Body weight Provider Name and Address Organization Details Last Updated DateTime 02/18/2024 170.18 cm 31.3 kg/m2 18258.47 g Yanira Buckner [place] - [facility] [place] 02/18/2024 13:07:17 Social History None recorded. Functional Status None recorded. Mental Status None recorded. Family History Nothing Reported. 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 D72.119 [id number] NATALI WILSON MD [facility] [address] [address] 08/18/2024 13:32:37 08/18/2024 13:52:01 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 549076127 J33.9 Deviated nasal septum 12 9976025 J34.2 Hypereosin ophilic syndrome 582376558 D72.119 [id number] NATALI WILSON MD [facility] [address] [address] 02/18/2025 12:48:46 02/18/2025 13:29:07 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 668765674 J33.9 Deviated nasal septum 12 0296407 J34.2 Hypereosin ophilic syndrome 923663672 D72.119 Health Concerns Section Related Observation LastModified by Organization Detai ls LastModified Time None Recorded Concern Status LastModified by Organization Details LastModified Time None Recorded Advance Directives Directive None Recorded Payers Insurance Date Sequence Insurance Name Policy Number Policy Castrejon Covered Member ID Castrejon Member ID Guarantor Name 02/24/2025 1 MEDICARE [place]: [employer] Aravind Phelan [id number] 5 Aravind Phelan Notes Date Note Type Note Provider Name and Address Organization Details Recorded Time 02/18/2024 text/html ROS as noted in the HPI Hx of nasal polyps and elevated eosinophils. Previously recommended Dupixent through [employer]'s homeHe has a history of dementia, hypertension and asthma. He has been on Dupixent injections for several months. Notes improvement in his nasal breathing. Reports recent cataract surgery. NATALI LEE MD 100 [facility],[address], [address], [facility] - [facility] 02/18/2024 13:32:00 08/18/2024 text/html Patient presently on Dupixent for nasal polyps. He feels his breathing is improved. Continues on fluticasone nasal spray. No CP or SOB NATALI LEE MD [address] [facility] [place],[address], [address], [facility] - [facility] 08/18/2024 13:42:10 02/18/2025 text/html Aravind Phelan is a 79-year-old male who presents for a follow-up evaluation of nasal polyps. The patient reports that he is still receiving DUPIXENT injections for the treatment of nasal polyps. He states that his breathing and sense of smell are good. Continues on FP nasal NATALI LEE MD 100 [facility],[address], [address], [facility] 02/18/2025 13:31:04
[2025-04-08 06:11] LABS: Hematocrit 39.1 % (42.0-52.0); Hemoglobin 12.9 g/dl (14.0-18.0); Imm Gran Abs Auto 0.03 X10*3/uL (0.00-0.03); Imm Gran Pct Auto 0.6 % (0.0-0.4); Lymphocytes Absolute Auto 1.1 X10*3/uL (1.2-4.9); Mean Corpuscular HGB Conc 33.0 g/dl (31.0-36.0); Mean Corpuscular Hemoglobin 30.1 pg (27.0-33.0); Mean Corpuscular Volume 91.1 fL (80.0-98.0); NRBC Abs Auto 0.000 X10*3/uL (0.0-0.012); NRBC Pct Auto 0.0 /100WBC (0.0-0.2); Platelet Count 263 X10*3/uL (160-400); Red Blood Count 4.29 X10*6/uL (4.60-5.80); White Blood Count 5.4 X10*3/uL (4.8-10.8)
[2025-04-08 06:33] LABS: Alanine Aminotransferase 19 U/L (0-40); Albumin Level 3.4 g/dL (3.5-5.0); Alkaline Phosphatase 76 U/L (39-117); Anion Gap 12 (12-20); Aspartate Amino Transferase 22 U/L (5-37); Blood Urea Nitrogen 14 mg/dL (9-16); Calcium 8.8 mg/dL (8.4-10.2); Carbon Dioxide 26 mmol/L (22-29); Chloride 108 mmol/L (96-108); Estimated Glomerular Filt Rate > 60; Potassium 3.5 mmol/L (3.3-5.1); Sodium 142 mmol/L (135-145); Total Protein 6.5 g/dL (6.5-8.0)
[2025-04-08 06:48] LABS: Thyroid Stimulating Hormone 0.70 uIU/mL (0.32-4.0)
[2025-04-08 13:09] LABS: Appearance Urine Clear; Glucose Urine UA Negative (Negative); PH 7.0 (5.0-9.0); Specific Gravity - Urine 1.015 (1.005-1.025); UMIC TRIGGER UA YES
== END 2025-04-08 05:58 ==
LOC: HO.HSH2N 05:57
PROVIDERS: Visit Provider Internal Medicine Interventional Cardiology
DX: R41.82 Altered mental status, unspecified (principal)
CPT/HCPCS: 36415; 80053; 81001; 84443; 85025

== ENCOUNTER 2025-04-17 12:47 | Outpatient (REF) | payer MEDICARE, SELFPAY ==
[2025-04-17 13:26] LABS: Anion Gap 11 (12-20); Blood Urea Nitrogen 23 mg/dL (9-16); Calcium 10.2 mg/dL (8.4-10.2); Carbon Dioxide 28 mmol/L (22-29); Chloride 111 mmol/L (96-108); Estimated Glomerular Filt Rate 56; Magnesium 2.2 mg/dL (1.6-2.6); Potassium 3.8 mmol/L (3.3-5.1); Sodium 146 mmol/L (135-145)
[2025-04-17 13:41] LABS: Thyroid Stimulating Hormone 0.49 uIU/mL (0.32-4.0)
--- OUTSIDE RECORDS SUMMARY | 2025-04-17 14:37 | XMS_ITS | Data Portability ---
Author Organization [place] - [facility], Allergy Address [address] [address] Care Team Providers Care Belt Maker Helper Name Role Phone FREDERICK LAMBERT Primary Care Provider [phone] Assessment Encounter Date Assessment Date Assessment LastModified [...] By Organization Details Last Modified Time 02/18/2025 [id number] The patient is advised to return for [...] Details Recorded Time Polyp of nasal cavity 741041907 Active 2018 Polyp of nasal cavity ; Note: Date Diagno sed: 019 3:53 PM (J33.0 ) Not Available [facility] 4 02:15:31 Nasal congestion 59050006 Active 2018 Nasal conges tion; Note: Date Diagno sed: 019 3:53 PM (R09.8 1) Not Available [facility] 4 02:14:16 Polyp of nasal sinus 99435658 Active 2018 Other polyp of sinus; Note: Date Diagno sed: 11/29/19 19 10:59 AM (J33.8 ) Not Available [facility] 4 02:14:07 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 785377229 Active 2023 NATALI WILSON MD [address] [facility],[place] [address], [place], [address] , [place] - [facility] 13:31:08 Deviated nasal septum 339702169 Active 2023 NATALI WILSON MD 100 [facility],[place] [address], [place], [address] , [place] [facility] 13:31:12 Hypereosinoph ilic syndrome 864167031 Active 2023 NATALI WILSON MD 100 [facility],[place] [address], [place], [address] , [place] - [facility] [place] 13:31:18 Problem Notes None recorded. Procedures Surgical History Date Name Laterality Status Provider Name and Address Organization Details Recorded Time 02/19/20 25 JMSNasal/Sinus Endoscopy completed NATALI LEE MD [address] [place] [address],[address], [address], [facility] - [facility] 02/18/2025 13:30:13 08/19/19 25 JMSNasal/Sinus Endoscopy completed NATALI LEE MD [address] [place] [address],[address], [address], [place] [facility] 08/18/2024 13:41:30 02/18/20 24 JMSNasal/Sinus Endoscopy completed NATALI LEE MD [address] [place] [address],[address], [address], [place] [facility] 02/18/2024 13:31:02 total replacement of hip completed Eli Contreras [place] - [facility] [place] 02/18/2025 13:13:46 Imaging Results None recorded. Procedure Notes None recorded. Medical Equipment None Reported. Allergies Allergen ID Allergen Name Allergen Category Reaction Reaction Severity Criticality Documentation Date Start Date Code Code System Note Provider Name and Address Organization Details Recorded Time 22572 Claritin medicatio n other Not available Not available 09/11/202387497 6 RxNorm React ion: unkno wn, unspe cifie d;; Not Available [facility] 4 00:48:26 03632 egg extract food,medi cation other Not available Not available 09/11/2023 44219 15 RxNorm React ion: unkno wn, unspe cifie d;; Not Available [facility] 4 00:48:35 17365 Dairy medicatio n other Not available Not available 09/11/2023 React ion: unkno wn, unspe cifie d;; Not Available [facility] 4 00:48:35 48022 Elavil medicatio n other Not available Not available 09/11/2023 24978 RxNorm React ion: unkno wn, unspe cifie d;; Not Available [facility] 4 00:48:41 54560 acetamino phen / oxycodone medicatio n other Not available Not available 09/11/2023 46460 3 RxNorm React ion: unkno wn, unspe cifie d;; Not Available [facility] 4 00:48:52 87784 Influenza medicatio n other Not available Not available 09/11/2023 React ion: unkno wn, unspe cifie d;; Not Available [facility] 4 00:48:52 02392 Triavil medicatio n other Not available Not available 09/11/2023 React ion: unkno wn, unspe cifie d;; Not Available [facility] 4 00:49:00 Medications Name Sig Start Date Stop Date Status Note LastModified by Organization Details LastModified Time amlodipin e 2.5 mg tablet Take 1 tablet every day by oral route. 02/18 completed Not Available Not Available Not Available amlodipin e 5 mg tablet active Medicati on ID: [id number] B rand Name: amlodipi ne Send Method: E-Prescr ibed Sub s Allowed: subs OK Medic ationGen ericName : amlodipi ne Not Available Not Available Not Available potassium chloride 20 mEq/15 mL oral liquid active Medicati on ID: [id number] B rand Name: ieshaanel m chloride Send [...] for inhalatio n active Medicati on ID: [id number] B rand Name: Advair Diskus S end Method: E-Prescr ibed Sub s Allowed: subs OK Medic ationGen ericName : Advair Diskus Not Available Not Available Not Available docusate sodium 100 mg capsule 2018 active Medicati on ID: [id number] B rand Name: docusate sodium S end Method: E-Prescr ibed Sub s Allowed: subs OK Medic ationGen ericName : docusate sodium Not Available Not Available Not Available hydrochlo rothiazid e 25 mg tablet active Medicati on ID: 740675 B rand Name: hydrochl orothiaz zak Send [...] 10 mg capsule active Medicati on ID: [id number] B rand Name: terazosi n Send Method: E-Prescr ibed Sub s Allowed: subs OK Medic ationGen ericName : terazosi n Not Available Not Available Not Available finasteri de 5 mg tablet active Medicati on ID: 731335 B rand Name: finaster zak Send Method: E-Prescr ibed Sub s Allowed: subs OK Medic ationGen ericName : finaster zak Not Available Not Available Not Available bisacodyl 5 mg tablet Take 1 tablet every day by oral route. active Not Available Not Available No t Available tiotropiu m bromide 18 mcg capsule with inhalatio n device active Medicati on ID: 158643 B rand Name: tiotropi um bromide Send Method: E-Prescr ibed Sub s Allowed: subs OK Medic ationGen ericName : tiotropi um bromide Not Available Not Available Not Available chlorhexi dine gluconate 0.12 % mouthwash active Medicati on ID: 323328 B rand Name: chlorhex idine gluconat e Send Method: E-Prescr ibed Sub s Allowed: subs OK Medic ationGen ericName : chlorhex idine gluconat e Not Available Not Available Not Available cholecalc iferol (vitamin D3) 25 mcg (1,000 unit) tablet active Medicati on ID: 170187 B rand Name: cholecal ciferol (vitamin D3) Send Method: E-Prescr ibed Sub s Allowed: subs OK Medic ationGen ericName : cholecal ciferol (vitamin D3) Not Available Not Available Not Available Symbicort 160 mcg-4.5 mcg/actua tion HFA aerosol inhaler 02/18 completed Medicati on ID: [id number] B rand Name: Symbicor t Send Method: E-Prescr ibed Sub s Allowed: subs OK Medic ationGen ericName : Symbicor t Not Available Not Available Not Available Nasal [place] (sodium chloride) 0.65 % aerosol active Medicati on ID: [id number] B rand Name: Nasal [place] (sodium chloride ) Send Method: E-Prescr ibed Sub s Allowed: subs OK Medic ationGen ericName : Nasal [place] (sodium chloride ) Not Available Not Available Not Available Flonase Allergy Relief 50 mcg/actua tion nasal spray,xavier pension active Medicati on ID: [id number] B rand Name: Flonase Allergy Relief S [...] - [facility] [place] 08/18/2024 13:39:11 Date Recorded Body height Body mass index (BMI) Body weight Provider Name and Address Organization Details Last Updated DateTime 02/18/2024 170.18 cm 31.3 kg/m2 71664.47 g Yanira Buckner [place] - [facility] [place] 02/18/2024 13:07:17 Social History None recorded. Functional Status None recorded. Mental Status None recorded. Family History Nothing Reported. Medical History Condition Response Nasal or Sinus Problems Y GERD/Reflux Y Dementia Y Hypertension Y Nasal polyps Y Asthma Y Past Encounters Encounter ID Performer Location Encounter Start Date Encounter Closed Date Diagnosis/Indication Diagnosis SNOMED-CT Code Diagnosis ICD10 Code Diagnosis IMO Codes Diagnosis Note [id number] NATALI WILSON MD [facility] [address] [address] 02/18/2024 12:50:09 02/18/2024 13:29:59 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 990326992 J33.9 Deviated nasal septum 12 8501764 J34.2 Hypereosin ophilic syndrome 779003911 D72.119 [id number] NATALI WILSON MD [facility] [address] [address] 08/18/2024 13:32:37 08/18/2024 13:52:01 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 532840802 J33.9 Deviated nasal septum 12 6569117 J34.2 Hypereosin ophilic syndrome 307946555 D72.119 [id number] NATALI WILSON MD [facility] [address] [address] 02/18/2025 12:48:46 02/18/2025 13:29:07 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 153634045 J33.9 Deviated nasal septum 12 6369250 J34.2 Hypereosin ophilic syndrome 145098485 D72.119 Health Concerns Section Related Observation LastModified by Organization Detai ls LastModified Time None Recorded Concern Status LastModified by Organization Details LastModified Time None Recorded Advance Directives Directive None Recorded Payers Insurance Date Sequence Insurance Name Policy Number Policy Castrejon Covered Member ID Castrejon Member ID Guarantor Name 02/24/2025 1 MEDICARE [place]: [employer] SERVICES Aravind Phelan [id number] 5 Aravind Phelan Notes Date Note Type Note Provider Name and Address Organization Details Recorded Time 02/18/2024 text/html ROS as noted in the HPI Hx of nasal polyps and elevated eosinophils. Previously recommended Dupixent through [facility]'s homeHe has a history of dementia, hypertension and asthma. He has been on Dupixent injections for several months. Notes improvement in his nasal breathing. Reports recent cataract surgery. NATALI LEE MD 100 [facility],[address], [address], [facility] - [facility] 02/18/2024 13:32:00 08/18/2024 text/html Patient presently on Dupixent for nasal polyps. He feels his breathing is improved. Continues on fluticasone nasal spray. No CP or SOB NATALI LEE MD [address] [facility],[address], [address], [facility] - [facility] 08/18/2024 13:42:10 02/18/2025 text/html Aravind Phelan is a 79-year-old male who presents for a follow-up evaluation of nasal polyps. The patient reports that he is still receiving DUPIXENT injections for the treatment of nasal polyps. He states that his breathing and sense of smell are good. Continues on FP nasal NATALI LEE MD 100 [facility],[address], [address], [facility] 02/18/2025 13:31:04
--- OUTSIDE RECORDS SUMMARY | 2025-04-17 14:37 | XMS_ITS | Encounter Summary ---
Author Organization [employer] Address [address] [facility] [address] [place] [address] Care Team Providers Care Lay Out And Detail Drafter Name Role Phone Unavailable Primary Care Provider Unavailabl e Encounter Details Date Type Department Care Team ([facility] Contact Info) Description 05/24/[address] [facility] [address] [place] [address] Reji Gomez, DMD [address] [place] [address] Social History Tobacco Use Types Packs/Day Years [...] as of this encounter Plan of Treatment Upcoming Encounters Date Type Department Care Team (Late Contact Info) Description 05/06/2025 9:45 AM EST Office Visit [facility] [address] [place] [address] Samantha Sevilla [address] [place] [address] 05/27/2025 10:30 AM EST Office [address] [facility] [address] [place] [address] Reji Gomez, DMD [address] [place] [address] documented as of this encounter Visit Diagnoses Not on filedocumented in this encounter
--- OUTSIDE RECORDS SUMMARY | 2025-04-17 14:37 | XMS_ITS | Encounter Summary ---
Author Organization [employer] Address [address] [facility] [address] [place] [address] Care Team Providers Care Pellet Press Operator Name Role Phone Unavailable Primary Care Provider Unavailabl e Encounter Details Date Type Department Care Team ([facility] Contact Info) Description 05/24/2023 Abstract [facility] [address] [place] [address] Reji Gomez, DMD [address] [place] [address] Social History Tobacco Use Types Packs/Day Years [...] Description 05/06/2025 9:45 AM EST Office Visit [facility] [address] [place] [address] Samantha Sevilla [address] [place] [address] 05/27/2025 10:30 AM EST Office Visit [facility] [address] [place] [address] Reji Gomez, DMD [address] [place] [address] documented as of this encounter Visit Diagnoses Not on filedocumented in this encounter
--- OUTSIDE RECORDS SUMMARY | 2025-04-17 14:37 | XMS_ITS | Continuity of Care Document ---
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 Active 2018 Polyp of nasal cavity ; Note: Date Diagno sed: 019 3:53 PM (J33.0 ) Not Available [facility] 4 02:15:31 Nasal congestion 62197541 Active 2018 Nasal conges tion; Note: Date Diagno sed: 019 3:53 PM (R09.8 1) Not Available [facility] 4 02:14:16 Polyp of nasal sinus 78731168 Active 2018 Other polyp of sinus; Note: Date Diagno sed: 11/29/19 19 10:59 AM (J33.8 ) Not Available [facility] 4 02:14:07 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 111297253 Active 2023 NATALI WILSON MD [address] [place], [place] [address], [address] , [facility] 4 13:31:08 Deviated nasal septum 236255085 Active 2023 NATALI WILSON MD [address] [place], [place] [address], [address] , [facility] 4 13:31:12 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 Procedures Surgical History Date Name Laterality Status Provider Name and Address Organization Details Recorded Time 02/19/20 25 JMSNasal/Sinus Endoscopy completed NATALI LEE MD [address], [place], [address], [place] [facility] 02/18/2025 13:30:13 08/19/19 25 JMSNasal/Sinus Endoscopy completed NATALI LEE MD [address], [place], [address], [place] [facility] 08/18/2024 13:41:30 02/18/20 24 JMSNasal/Sinus Endoscopy completed NATALI LEE MD [address] [facility], [place], [address], [place] [facility] 02/18/2024 13:31:02 total replacement of hip completed Eli Contreras [place] - [facility] 02/18/2025 13:13:46 Imaging Results None recorded. Procedure Notes None recorded. Medical Equipment None Reported. Allergies Allergen ID Allergen Name Allergen Category Reaction Reaction Severity Criticality Documentation Date Start Date Code Code System Note Provider Name and Address Organization Details Recorded Time 47201 Claritin medicatio n other Not available Not available 09/11/2023 00522 6 RxNorm React ion: unkno wn, unspe cifie d;; Not Available [facility] 4 00:48:26 65074 egg extract food,medi cation other Not available Not available 09/11/2023 39505 15 RxNorm React ion: unkno wn, unspe cifie d;; Not Available [facility] 4 00:48:35 42688 Dairy medicatio n other Not available Not available 09/11/2023 React ion: unkno wn, unspe cifie d;; Not Available [facility] 4 00:48:35 15727 Elavil medicatio n other Not available Not available 09/11/2023 34833 RxNorm React ion: unkno wn, unspe cifie d;; Not Available [facility] 4 00:48:41 45282 acetamino phen / oxycodone medicatio n other Not available Not available 09/11/2023 85638 3 RxNorm React ion: unkno wn, unspe cifie d;; Not Available [facility] 4 00:48:52 83831 Influenza medicatio n other Not available Not available 09/11/2023 React ion: unkno wn, unspe cifie d;; Not Available [facility] 4 00:48:52 72575 Triavil medicatio n other Not available Not available 09/11/2023 React ion: unkno wn, unspe cifie d;; Not Available [facility] 4 00:49:00 Medications Name Sig Start Date Stop Date Status Note LastModified by Organization Details LastModified Time amlodipin e 2.5 mg tablet Take 1 tablet every day by oral route. 02/18 completed Not Available Not Available Not Available amlodipin e 5 mg tablet active Medicati on ID: [id number] B rand Name: amlodipi ne Send Method: E-Prescr ibed Sub s Allowed: subs OK Medic ationGen ericName : amlodipi ne Not Available Not Available Not Available potassium chloride 20 mEq/15 mL oral liquid active Medicati on ID: 734786 B rand Name: potassiu m chloride Send [...] for inhalatio n active Medicati on ID: 127073 B rand Name: Advair Diskus S end Method: E-Prescr ibed Sub s Allowed: subs OK Medic ationGen ericName : Advair Diskus Not Available Not Available Not Available docusate sodium 100 mg capsule 2018 active Medicati on ID: 406171 B rand Name: docusate sodium S end Method: E-Prescr ibed Sub s Allowed: subs OK Medic ationGen ericName : docusate sodium Not Available Not Available Not Available hydrochlo rothiazid e 25 mg tablet active Medicati on ID: [id number] B rand Name: hydrochl orothiaz zak Send [...] 10 mg capsule active Medicati on ID: 521313 B rand Name: terazosi n Send Method: E-Prescr ibed Sub s Allowed: subs OK Medic ationGen ericName : terazosi n Not Available Not Available Not Available finasteri de 5 mg tablet active Medicati on ID: 132604 B rand Name: finaster zak Send Method: E-Prescr ibed Sub s Allowed: subs OK Medic ationGen ericName : finaster zak Not Available Not Available Not Available bisacodyl 5 mg tablet Take 1 tablet every day by oral route. active Not Available Not Available No t Available tiotropiu m bromide 18 mcg capsule with inhalatio n device active Medicati on ID: 358407 B rand Name: tiotropi um bromide Send Method: E-Prescr ibed Sub s Allowed: subs OK Medic ationGen ericName : tiotropi um bromide Not Available Not Available Not Available chlorhexi dine gluconate 0.12 % mouthwash active Medicati on ID: [id number] B rand Name: chlorhex idine gluconat e Send Method: E-Prescr ibed Sub s Allowed: subs OK Medic ationGen ericName : chlorhex idine gluconat e Not Available Not Available Not Available cholecalc iferol (vitamin D3) 25 mcg (1,000 unit) tablet active Medicati on ID: [id number] B rand Name: cholecal ciferol (vitamin D3) Send Method: E-Prescr ibed Sub s Allowed: subs OK Medic ationGen ericName : cholecal ciferol (vitamin D3) Not Available Not Available Not Available Symbicort 160 mcg-4.5 mcg/actua tion HFA aerosol inhaler 02/18 completed Medicati on ID: [id number] B rand Name: Symbicor t Send Method: E-Prescr ibed Sub s Allowed: subs OK Medic ationGen ericName : Symbicor t Not Available Not Available Not Available Nasal [place] (sodium chloride) 0.65 % aerosol active Medicati on ID: [id number] B rand Name: Nasal [place] (sodium chloride ) Send Method: E-Prescr ibed Sub s Allowed: subs OK Medic ationGen ericName : Nasal [place] (sodium chloride ) Not Available Not Available Not Available Flonase Allergy Relief 50 mcg/actua tion nasal spray,xavier pension active Medicati on ID: [id number] B rand Name: Flonase Allergy Relief S [...] ICD10 Code Diagnosis IMO Codes Diagnosis Note [id number] NATALI WILSON MD [facility] [address] [address] 02/18/2025 12:48:46 02/18/2025 13:29:07 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 916198137 J33.9 Deviated nasal septum 12 9114088 J34.2 Hypereosin ophilic syndrome 144593901 D72.119 Health Concerns Section Related Observation LastModified by Organization Detlaurel leigh LastModified Time None Recorded Concern Status LastModified by Organization Details LastModified Time None Recorded Payers Encounter Date Sequence Insurance Name Policy Number Policy Castrejon Covered Member ID Castrejon Member ID Guarantor Name 02/18/2025 1 MEDICARE -DC: [employer] Aravind Phelan [id number] Aravind Phelan Notes Date Note Type [...] Continues on nasal NATALI LEE MD [address] [place] [address], [place], [address], [facility] 02/18/2025 13:31:04
--- OUTSIDE RECORDS SUMMARY | 2025-04-17 14:37 | XMS_ITS | Clinical Summary ---
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 Name Role Phone Unavailable Primary Care Provider [...] GAMBOA Comment: 1978: [facility], 2011 Entered By: UZIEL MENDOZA Comment: lifelong problems with excessive worry, tension, etc History of traumatic brain injury 12/17/2024 Hyperlipidemia 12/17/2024 Impulse control disorder 12/17/2024 Overview (12/17/2024): Jun 29, 2011 Entered By: MILES BARCLAY Comment: R/o early Dementia Jul 20, 2011 Entered By: SIMA GAMBOA Comment: 05-12 to [facility] Ocular hypertension, bilateral 12/17/2024 Presence [...] Description 04/01/2025 9:45 AM EST Office Visit [facility] [address] [place] [address] Samantha Sevilla 02/04/2025 10:00 AM EDT Office Visit [facility] [address] [place] [address] Reji Gomez DMD 01/21/2025 8:15 AM EDT Office Visit [facility] [address] [place] [address] Amira Slater Dental plaque (Primary Dx); Dental [...] Care Team (Late st Contact Info) Description 05/06/2025 9:45 AM EST Office Visit [facility] [address] [place] [address] Samantha Sevilla [address] [place] [address] 05/27/2025 10:30 AM EST Office Visit [facility] [address] [place] [address] Reji Gomez DMD [address] [place] [address] Health Maintenance Due Date Last Done Comments [...]
--- OUTSIDE RECORDS SUMMARY | 2025-04-17 14:37 | XMS_ITS | Encounter Summary ---
Author Organization [facility] Address [address] [facility] [address] [place] [address] Care Team Providers Care [address] Magistrate Name Role Phone Unavailable Primary Care Provider Unavailabl e Encounter Details Date Type Department Care Team ([facility] Contact Info) Description 05/24/2023 Abstract [facility] [address] [place] [address] Reji Gomez, DMD [address] [place] [address] Social History Tobacco Use Types Packs/Day Years [...] Description 05/06/2025 9:45 AM EST Office Visit [facility] [address] [place] [address] Samantha Sevilla [address] [place] [address] 05/27/2025 10:30 AM EST Office Visit [facility] [address] [place] [address] Reji Gomez, DMD [address] [place] [address] documented as of this encounter Visit Diagnoses Not on filedocumented in this encounter
== END 2025-04-17 12:48 | disposition home or self-care (01) ==
LOC: HO.HSH2N 12:47
PROVIDERS: Visit Provider Internal Medicine Interventional Cardiology
DX: R00.0 Tachycardia, unspecified (principal)
CPT/HCPCS: 36415; 80048; 83735; 84443